=== PATIENT | female | born 1985 | race Caucasian/White ===

== ENCOUNTER 2020-08-02 15:33 | Outpatient (CLI) | payer SELFPAY ==
[2020-08-02 15:47] VITALS: BMI 34.0
[2020-08-02 16:00] VITALS: BP 137/97; BP 141/96; PULSE 97; RESP 18; TEMP 36.7; O2SAT 98
[2020-08-02 16:15] VITALS: BP 133/93
[2020-08-02 16:30] VITALS: BP 127/91
[2020-08-02 16:45] VITALS: BP 125/83
[2020-08-02 17:00] VITALS: BP 138/88
[2020-08-02 17:23] LABS: Appearance,Urine CLEAR (Clear); Bilirubin,Urine Negative (Negative); Blood, Urine TRACE-I (Negative); Color,Urine YELLOW (Yellow); Glucose,Urine (UA) Negative (Negative); Ketones,Urine Negative (Negative); Leukocyte Esterase,Urine TRACE (Negative); Microscopic, Urine URINE MICROSCOPIC (MICROSCOPIC); Nitrate,Urine Negative (Negative); PH,Urine 6.5 (5.0-8.5); Protein,Urine Negative (Negative); Urobilinogen,Urine 0.2 EU/dl (0.2)
[2020-08-02 17:34] LABS: WBC,Urine Occasional #/hpf (0-3)
[2020-08-02 17:39] LABS: Barbiturates Screen,Urine Negative ng/ml (<200); Benzodiazepines Screen,Urine Negative ng/ml (<200)
[2020-08-02 17:40] LABS: Amphetamine/Metha Screen,Urine Negative ng/ml (<1000)
[2020-08-02 17:41] LABS: Cannabinoid Screen,Urine Negative ng/ml (<50); Cocaine Screen,Urine Negative ng/ml (<300)
[2020-08-02 17:42] LABS: Methadone Screen,Urine Negative ng/ml (<300)
[2020-08-02 17:43] LABS: Opiate Screen,Urine Negative ng/ml (<300); Phencyclidine Screen,Urine Negative ng/ml (<25)
--- NOTE | 2020-08-02 17:49 | PC.NURSE ---
Lab personnel at to draw blood for PIH labs.
[2020-08-02 17:50] VITALS: BMI 34.0
[2020-08-02 18:06] LABS: Basophils % 0.3 % (0.1-2.0); Eosinophils # 0.1 K/mm3 (0.0-0.4); Eosinophils % 0.8 % (0.1-12.0); Hematocrit 36.9 % (37.0-47.0); Hemoglobin 12.7 g/dL (12.2-16.2); Lymphocytes # 2.7 K/mm3 (0.7-4.5); Lymphocytes % 28.9 % (10-50); Mean Corpuscular HGB Conc 34.3 g/dL (31.8-35.4); Mean Corpuscular Hemoglobin 28.2 pg (27.0-31.2); Mean Corpuscular Volume 82.1 fl (81-99); Mean Platelet Volume 9.9 fl (7.4-10.4); Monocytes # 0.4 K/mm3 (0.1-1.0); Monocytes % 4.3 % (1.7-9.3); Neutrophils # 6.1 K/mm3 (1.8-7.8); Neutrophils % 65.8 % (37.0-80.0); Platelet Count 207 K/mm3 (142-424); Red Cell Distribution Width 16.2 % (11.5-17.5); White Blood Count 9.3 K/mm3 (4.8-10.8)
[2020-08-02 18:28] LABS: D-Dimer 1.58 ug/mL (0.0-0.5); INR 0.83 (0.9-1.1); Prothrombin Time 9.9 seconds (10.1-12.5)
[2020-08-02 18:29] LABS: Activated Partial Thrombo Time 23.9 seconds (22.8-30.6); Fibrinogen 454 mg/dL (229.9-363.5)
[2020-08-02 18:30] LABS: Potassium 3.1 mmoL/L (3.5-5.1); Sodium 135 mmol/L (136-145)
[2020-08-02 18:31] LABS: Anion Gap 13.1 mEq/L (5-15); Blood Urea Nitrogen 9 mg/dl (7-17); Calcium 9.4 mg/dl (8.4-10.2); Carbon Dioxide 20 mmol/L (22.0-30.0); Chloride 105 mmol/L (98-107); Creatinine Clearance Estimated 252 mL/min (50-200); Estimated Glomerular Filt Rate 140 ml/min (>60); GFR (African American) 170 ML/MIN (>60); Glucose 83 mg/dl (74-100); Uric Acid 8.5 mg/dl (2.5-6.2)
[2020-08-02 18:32] LABS: Alanine Aminotransferase 17 U/L (12-78); Aspartate Amino Transferase 32 U/L (14-36)
== END 2020-08-02 19:30 | disposition home or self-care (01) ==
LOC: OBOUT 15:37 → OB 15:39
PROVIDERS: PCP Nurse Practitioner Family; Visit Provider Obstetrics & Gynecology
DX: O13.3 Gestational [pregnancy-induced] hypertension without significant proteinuria, third trimester (principal); Z3A.39 39 weeks gestation of pregnancy
CPT/HCPCS: 36415; 59025; 80048; 80305; 81001; 84450; 84460; 84550; 85025; 85378; 85384; 85610; 85730; G0463

== ENCOUNTER 2020-08-06 04:44 | Inpatient (IN) | payer SELFPAY ==
[2020-08-06 04:58] VITALS: BMI 33.4
[2020-08-06 05:12] VITALS: BP 119/82; PULSE 99; RESP 18; TEMP 36.7; O2SAT 97; BMI 33.4
[2020-08-06 06:10] LABS: Microscopic, Urine URINE MICROSCOPIC (MICROSCOPIC)
[2020-08-06 06:31] LABS: Basophils % 0.2 % (0.1-2.0); Eosinophils % 0.6 % (0.1-12.0); Hematocrit 33.8 % (37.0-47.0); Hemoglobin 11.7 g/dL (12.2-16.2); Lymphocytes # 2.5 K/mm3 (0.7-4.5); Lymphocytes % 35.9 % (10-50); Mean Corpuscular HGB Conc 34.6 g/dL (31.8-35.4); Mean Corpuscular Hemoglobin 28.2 pg (27.0-31.2); Mean Corpuscular Volume 81.7 fl (81-99); Mean Platelet Volume 9.9 fl (7.4-10.4); Monocytes # 0.4 K/mm3 (0.1-1.0); Monocytes % 5.6 % (1.7-9.3); Neutrophils # 4.1 K/mm3 (1.8-7.8); Neutrophils % 57.7 % (37.0-80.0); Platelet Count 186 K/mm3 (142-424); Red Blood Count 4.13 M/mm3 (4.20-5.40); Red Cell Distribution Width 16.4 % (11.5-17.5); White Blood Count 7.1 K/mm3 (4.8-10.8)
[2020-08-06 06:43] LABS: Appearance,Urine CLEAR (Clear); Bilirubin,Urine Negative (Negative); Blood, Urine TRACE-I (Negative); Color,Urine YELLOW (Yellow); Glucose,Urine (UA) Negative (Negative); Ketones,Urine Negative (Negative); Leukocyte Esterase,Urine 1+ (Negative); Nitrate,Urine Negative (Negative); PH,Urine 6.5 (5.0-8.5); Protein,Urine Negative (Negative); Urobilinogen,Urine 0.2 EU/dl (0.2)
[2020-08-06 07:14] LABS: Bacteria,Urine 1+ /lpf
--- NOTE | 2020-08-06 08:21 | HMH.PHAINT ---
MEDICATION RECONCILIATION COMPLETED ON PATIENT USING EXTERNAL FILL HISTORY FROM PHARMACY. -MIL VICTOR, PILID
[2020-08-06 08:35] LABS: Benzodiazepines Screen,Urine Negative ng/ml (<200)
[2020-08-06 08:36] LABS: Amphetamine/Metha Screen,Urine Negative ng/ml (<1000); Barbiturates Screen,Urine Negative ng/ml (<200)
[2020-08-06 08:37] LABS: Cannabinoid Screen,Urine Negative ng/ml (<50)
[2020-08-06 08:39] LABS: Opiate Screen,Urine Negative ng/ml (<300)
[2020-08-06 08:40] LABS: Phencyclidine Screen,Urine Negative ng/ml (<25)
[2020-08-06 08:47] LABS: Cocaine Screen,Urine Negative ng/ml (<300)
[2020-08-06 08:48] LABS: Methadone Screen,Urine Negative ng/ml (<300)
--- NOTE | 2020-08-06 10:10 | HMH.OBAPHP ---
OB - H&P: HPI Antepartum - History of Present Illness Chief complaint: Term , gestational hypertension History of present illness: She is a 35-year-old 15 para 8 aborta 6 [employer] lady who is 40 weeks and 1 day gestational age. She was seen in my office and had increased blood pressure. She has had a history of blood pressure and pregnancies in the past. Since she is term we elected to induce her labor. - History of Present Criteria for establishing EDC:: based on LMP only care: good care Ultrasounds: none Obstetrical complications: gestational hypertension Medical complications: none - Labs Blood type: A (+) positive Rubella: unknown RPR/VDRL: unknown GBS status: unknown HBsAG: unknown [facility] History I have reviewed the patient's past medical history: Yes Medical History: Reports:: Kidney Stones *Have you ever received a pneumonia vaccine?: No *Have you received a flu vaccine this season?: No Other Surgeries: Yes: No Previous Surgery. No: - *Social History Smoking Status: Never smoker Alcohol Intake: never *Occupational Status:: unemployed *Travel in the last 8 weeks: None Family Hx:: Diabetes HUMAN SERVICE COORDINATOR history: Spontaneous Para: 8 Review of Systems - Review of Systems Review of systems:: pertinent systems reviewed and negative unless documented below Meds Home Medications Medication Instructions Recorded Confirmed Type magnesium gluconate 27 mg 27 mg PO BID 08/04/20 08/06/20 History magnesium (500 mg) tablet prenat.vits,zuleima,uep-yfer-ohudj 1 tab PO DAILY 08/04/20 08/06/20 History Ergocalciferol (Vitamin D2) 50,000 unit PO WEEKLY 08/06/20 08/06/20 History [Vitamin D2] Potassium Chloride [Micro-K 10mEq 10 meq PO DAILY 08/06/20 08/06/20 History cap] hydroCHLOROthiazide [HCTZ 25mg 25 mg PO DAILY 08/06/20 08/06/20 History tab] Allergies Allergy/AdvReac Type Severity Reaction Status Date / Time No Known Allergies Allergy Verified 08/04/20 14:43 OB - H&P: Exam - Physical Exam Vital signs: Temp Pulse Resp BP Pulse Ox 98.1 F 99 H 18 119/82 97 08/06/20 05:12 08/06/20 05:12 08/06/20 05:12 08/06/20 05:12 08/06/20 05:12 - Constitutional no acute distress - Routine HEENT Exam Head: Present: normocephalic Eye: Present: EOMI, PERRL ENT: Present: mucous membranes moist - Routine Neck Exam Present: supple, full ROM - Routine Respiratory Exam Absent: accessory muscle use (good air entry bilaterally), respiratory distress, wheezes, crackles - Routine Cardiovascular Exam Present: RRR. Absent: murmur - Routine Abdominal Exam Present: soft, normoactive bowel sounds. Absent: tenderness, distended, guarding - Routine Rectal Exam Patient deferred: visual exam, digital exam - Routine Exam Patient deferred: external exam, groin exam, perineal exam - Routine Extremities Exam Present: full ROM. Absent: cyanosis, edema - Routine Skin Exam Present: intact. Absent: cyanosis - Routine Neurological Exam Present: alert, oriented X3 - Routine Psychiatric Exam Present: normal affect OB - Results - Labs Labs: Short CBC 08/06/20 Range/Units 05:40 WBC 7.1 (4.8-10.8) K/mm3 Hgb 11.7 L (12.2-16.2) g/dL Hct 33.8 L (37.0-47.0) % Plt Count 186 (142-424) K/mm3 Urine 08/06/20 Range/Units 05:40 Urine Color Yellow (Yellow) Urine Appearance Clear (Clear) Urine pH 6.5 (5.0-8.5) Ur Specific [place] 1.010 (1.005-1.030) Urine Protein Negative (Negative) Urine Glucose (UA) Negative (Negative) OB - A/P Antepartum (1) Grand multiparity Status: Acute (2) Gestational hypertension Status: Acute (3) Advanced maternal age (AMA) in Status: Acute - Additional Plan Planning to breastfeed?: Yes Plan: induction Additional Information:: She is currently 40 weeks and 1 day and is admitted for slightly increased b
--- NOTE | 2020-08-06 10:13 | HMH.LABNOT ---
Labor Note - Subjective: Date: 08/06/20 Time: 10:13 irregular contractions - Objective: NST:: Reactive Contractions:: every 4-5 minutes Cervical Dilation:: 3-4 Effacement:: 50% Station: -2 Membranes: artificially ruptured - Fetus: Monitoring?: Yes monitoring type:: Internal and External Comment:: I inserted an IUPC - Assessment: Labor progressing?: Yes Cephalopelvic disproportion?: No Patient Problems: All Active Problems Grand multiparity (Acute) Gestational hypertension (Acute) Advanced maternal age (AMA) in (Acute) (Acute) - Plan: Anesthesia for epidural?: No Continue to labor down?: Yes Plan for ?: No Continue to monitor?: Yes Start pushing?: No
--- NOTE | 2020-08-06 11:47 | HMH.LABNOT ---
Labor Note - Subjective: Date: 08/06/20 Time: 11:47 regular contraction - Objective: NST:: Reactive Contractions:: every 2-3 minutes Cervical Dilation:: 4 Effacement:: 75% Station: -2 Membranes: artificially ruptured - Fetus: Monitoring?: Yes monitoring type:: External - Assessment: Labor progressing?: Yes Cephalopelvic disproportion?: No Patient Problems: All Active Problems Grand multiparity (Acute) Gestational hypertension (Acute) Advanced maternal age (AMA) in (Acute) (Acute) - Plan: Anesthesia for epidural?: No Continue to labor down?: Yes Plan for ?: No Continue to monitor?: Yes Start pushing?: No
--- NOTE | 2020-08-06 14:45 | P.PCN_ITS ---
- Delivery Note Delivery Date:: 08/06/20 Delivery Time:: 14:31 Anesthesia Type: None Was labor medically induced?: Yes Induction method: per pitocin protocol Gestational age (weeks): 40 Infant delivered prior to 39 weeks?: No Justification for early elective delivery:: Benign Hypertension Infant Gender: Male at 1 minute: 7 at 5 minutes: 9 Delivery Procedure:: She is a 35-year-old 15 para 8 aborta 6 who was 40 and 1 weeks gestational age. She was seen in my office and her blood pressure slightly elevated. She has been seeing a manager integrated throughout the . She wants to deliver in the hospital. She has had 8 previous vaginal deliveries. She was started on IV oxytocin had her membranes ruptured. She progressed to full dilation and delivered spontaneously a liveborn male child at 2:31 PM in the afternoon of August 06, 2020. On deliver the head there was a loose nuchal cord which was easily reduced. This was followed by the anterior shoulder and the rest the 's body atraumatically. We allowed the cord to continue to pulsate for approximately 1 minute. The cord is then doubly clamped and cut and the infant was placed on the mother's abdomen for further care. The nurses assigned Apgars of 7 at 1 minute and 9 at 5 minutes. She received IV oxytocin and using gentle traction on the cord and countertraction on the fundus I was able to easily deliver the placenta intact. Had a normal three-vessel cord. There were no perineal or vaginal lacerations. She has a positive blood, she is rubella unknown group B strep unknown and hep B unknown. She plans to breast-feed. Her mental health therapist is Dr. Duffy. Estimated blood loss was approximately 300 cc. Placental Delivery Description: Spontaneous
--- NOTE | 2020-08-06 14:45 | HMH.LABNOT ---
Labor Note - Subjective: Date: 08/06/20 Time: 13:55 regular contraction - Objective: NST:: Reactive Contractions:: every 2-3 minutes Cervical Dilation:: 8-9 Effacement:: 100% Station: 0 Membranes: artificially ruptured - Fetus: Monitoring?: Yes monitoring type:: External - Assessment: Labor progressing?: Yes Cephalopelvic disproportion?: No Patient Problems: All Active Problems Grand multiparity (Acute) Gestational hypertension (Acute) Advanced maternal age (AMA) in (Acute) (Acute) - Plan: Anesthesia for epidural?: No Continue to labor down?: Yes Plan for ?: No Continue to monitor?: Yes Start pushing?: No
--- NOTE | 2020-08-06 17:41 | HMH.OBDCSM ---
General - General Admission date:: 08/06/20 Discharge date: 08/06/20 HPI - History of Present Illness History of present illness: She is a 35-year-old 15 now para 9 aborta 6 who was 40 weeks gestational age. We brought her in at term for induction of labor. Her blood pressure was slightly elevated. Hospital Course Hospital Course: On August 06, 2020 she was started on IV oxytocin and had her membranes ruptured. She progressed to full dilation and delivered spontaneously a liveborn male child at 2:31 PM in the afternoon of August 06, 2020. The baby weighed 9 pounds 12 ounces and had Apgars of 7 at 1 minute and 9 at 5 minutes. There were no perineal or vaginal lacerations. She has done well and is discharged home 6 hours after her delivery. She has a Rh+ blood, her rubella status, group B strep status and rubella status are unknown. Her lochia is normal. She is breast-feeding. Her qa automation engineer is Dr. Duffy. Rhogam Administration: Not Indicated Objective Vital signs: Temp Pulse Resp BP Pulse Ox 98.1 F 99 H 18 119/82 97 08/06/20 05:12 08/06/20 05:12 08/06/20 05:12 08/06/20 05:12 08/06/20 05:12 no acute distress - *Routine HEENT Exam Head: Present: normocephalic Eye: Present: EOMI, PERRL ENT: Present: mucous membranes moist Results Labs on day of discharge: Labs from last 24 hours 08/06/20 08/06/20 08/06/20 05:40 05:40 05:40 WBC RBC Hgb Hct MCV MCH MCHC RDW Plt Count MPV Neut % (Auto) Lymph % (Auto) [place] % (Auto) Eos % (Auto) Baso % (Auto) Neut # (Auto) Lymph # (Auto) [place] # (Auto) Eos # (Auto) Baso # (Auto) Urine Color Yellow Urine Appearance Clear Urine pH 6.5 Ur Specific [place] 1.010 Urine Protein Negative Urine Glucose (UA) Negative Urine Ketones Negative Urine Blood Trace-i Urine Nitrate Negative Urine Bilirubin Negative Urine Urobilinogen 0.2 Ur Leukocyte Esterase 1+ A Urine RBC 3-5 Urine WBC 5-10 Ur Squamous Epith Cells 3-5 Urine Bacteria 1+ Urine Opiates Screen Negative Urine Methadone Screen Negative Ur Barbituates Screen Negative Ur Phencyclidine Scrn Negative Ur Amphetamines Screen Negative U Benzodiazepines Scrn Negative Urine Cocaine Screen Negative U Marijuana (THC) Screen Negative Blood Type A Positive Antibody Screen Negative 08/06/20 05:40 WBC 7.1 RBC 4.13 L Hgb 11.7 L Hct 33.8 L MCV 81.7 MCH 28.2 MCHC 34.6 RDW 16.4 Plt Count 186 MPV 9.9 Neut % (Auto) 57.7 Lymph % (Auto) 35.9 [place] % (Auto) 5.6 Eos % (Auto) 0.6 Baso % (Auto) 0.2 Neut # (Auto) 4.1 Lymph # (Auto) 2.5 [place] # (Auto) 0.4 Eos # (Auto) 0.0 Baso # (Auto) 0.0 Urine Color Urine Appearance Urine pH Ur Specific [place] Urine Protein Urine Glucose (UA) Urine Ketones Urine Blood Urine Nitrate Urine Bilirubin Urine Urobilinogen Ur Leukocyte Esterase Urine RBC Urine WBC Ur Squamous Epith Cells Urine Bacteria Urine Opiates Screen Urine Methadone Screen Ur Barbituates Screen Ur Phencyclidine Scrn Ur Amphetamines Screen U Benzodiazepines Scrn Urine Cocaine Screen U Marijuana (THC) Screen Blood Type Antibody Screen DS: Diagnosis - Discharge Diagnosis (1) Grand multiparity Status: Acute (2) Gestational hypertension Status: Acute (3) Advanced maternal age (AMA) in Status: Acute (4) Normal delivery Status: Acute Discharge Plan - Patient Discharge Instructions ACTIVITY: No heavy lifting DIET: continue same diet - Follow up Plan Disposition: Home, Self-Care Condition at discharge:: Stable Home Medications: Home Medications Medication Instructions Recorded Confirmed Type magnesium gluconate 27 mg 27 mg PO BID 08/04/20 08/06/20 History magnesium (500 mg) tablet prenat.vits,zuleima,mqv-xxfl-cfggi 1 tab PO DAILY
[2020-08-06 20:18] VITALS: BP 134/79; PULSE 71; RESP 18; TEMP 36.6; O2SAT 99
== END 2020-08-06 20:48 | disposition home or self-care (01) | DRG 807 ==
PROVIDERS: Admitting Provider Nurse Practitioner Obstetrics & Gynecology; PCP Nurse Practitioner Family; Visit Provider Nurse Practitioner Obstetrics & Gynecology
DX: O13.3 Gestational [pregnancy-induced] hypertension without significant proteinuria, third trimester (principal); Z37.0 Single live birth; Z3A.40 40 weeks gestation of pregnancy; O69.81X0 Labor and delivery complicated by cord around neck, without compression, not applicable or unspecified
CPT/HCPCS: 59409; 59025; 80305; 81001; 85025; 86850; 87086; C1758; U0003

== ENCOUNTER → 2021-11-30 16:56 | Outpatient (CLI) | payer SELFPAY | PROVIDERS: Visit Provider Nurse Practitioner Obstetrics & Gynecology | DX: Z34.90 Encounter for supervision of normal pregnancy, unspecified, unspecified trimester (principal) | CPT/HCPCS: 86403 ==

== ENCOUNTER 2021-12-07 01:30 | Inpatient (IN) | payer SELFPAY ==
[2021-12-07] VITALS (11 sets, daily range): BP systolic 118–127; BP diastolic 62–83; PULSE 65–88; RESP 18–19; TEMP 36.4–36.8; O2SAT 97–100; BMI 35.4; BMI 40.4
[2021-12-07 01:52] LABS: Basophils % 0.6 % (0.1-2.0); Eosinophils # 0.1 K/mm3 (0.0-0.4); Hematocrit 34.2 % (37.0-47.0); Hemoglobin 11.7 g/dL (12.2-16.2); Lymphocytes # 1.9 K/mm3 (0.7-4.5); Lymphocytes % 26.3 % (10-50); Mean Corpuscular HGB Conc 34.2 g/dL (31.8-35.4); Mean Corpuscular Hemoglobin 30.5 pg (27.0-31.2); Mean Corpuscular Volume 89.2 fl (81-99); Mean Platelet Volume 10.3 fl (7.4-10.4); Monocytes # 0.4 K/mm3 (0.1-1.0); Neutrophils # 4.8 K/mm3 (1.8-7.8); Neutrophils % 67.1 % (37.0-80.0); Platelet Count 211 K/mm3 (142-424); Red Blood Count 3.83 M/mm3 (4.20-5.40); Red Cell Distribution Width 16.3 % (11.5-17.5); White Blood Count 7.2 K/mm3 (4.8-10.8)
--- NOTE | 2021-12-07 01:58 | EXP.OB.APHP ---
OB - H&P: HPI Antepartum History of Present Illness Chief complaint: Leakage of fluid, and regular painful contractions History of present illness: Mrs Nicole Patel is a 36 yo at 38w2d, by LMP, with EDC 12/19/21, who presents to [facility] for leakage of fluid that woke her from sleep at midnight followed by regular, painful uterine contractions. She reports good movement. Upon arrival, cervical exam was 8/100/0 and she was grossly ruptured. History of Present Criteria for establishing EDC:: based on LMP only care: limited care Obstetrical complications: none Labs Blood type: A (+) positive Rubella: Refused RPR/VDRL: Refused GBS status: negative HBsAG: Refused [facility] Medical History (Updated 12/07/21 @ 02:29 by Madhuri Wall DO) Active labor SROM (spontaneous rupture of membranes) Social History Smoking Status: Never smoker alcohol intake: never substance use type: denies use current occupational status: unemployed Travel in the last 8 weeks: None Review of Systems Review of Systems Review of systems:: pertinent systems reviewed and negative unless documented below Meds Home Medications and Allergies Home Medications Medication Instructions Recorded Confirmed Type prenat.vits,zuleima,nlo-ijpw-nurqb 1 tab PO DAILY Supplement 08/04/20 11/30/21 History potassium chloride 10 mEq 10 meq PO DAILY Supplement 08/06/20 11/30/21 History capsule,extended release hydrochlorothiazide 25 mg tablet 25 mg PO 07/21/21 11/30/21 History magnesium 500 mg tablet 15 mg PO DAILY 10/19/21 11/30/21 History New Prescriptions to Start Prescriptions: Allergies Allergy/AdvReac Type Severity Reaction Status Date / Time No Known Allergies Allergy Verified 11/30/21 16:14 OB - H&P: Exam Constitutional mild distress and cooperative Routine HEENT Exam Head: Present normocephalic Eye: Absent conjunctivae pink ENT: Present mucous membranes moist Routine Neck Exam Present full ROM Routine Respiratory Exam Present CTA bilaterally and normal respiratory effort Routine Cardiovascular Exam Present RRR Routine Abdominal Exam Present soft (Gravid); Absent tenderness Routine Exam External: Present normal urethra appearance; Absent lesions, vulvar erythema or vulvar tenderness Routine Extremities Exam Present full ROM; Absent edema or calf tenderness Routine Neurological Exam Present alert and oriented X3 Routine Psychiatric Exam Present normal affect and cooperative OB - Results Labs Labs: Short CBC 12/07/21 Range/Units 01:35 WBC 7.2 (4.8-10.8) K/mm3 Hgb 11.7 L (12.2-16.2) g/dL Hct 34.2 L (37.0-47.0) % Plt Count 211 (142-424) K/mm3 OB - A/P Antepartum (1) : Status: Acute (2) Grand multiparity: Status: Acute (3) Gestational hypertension: Status: Acute (4) Advanced maternal age (AMA) in : Status: Acute (5) SROM (spontaneous rupture of membranes): Status: Acute (6) Active labor: Status: Acute Additional Plan Planning to breastfeed?: Yes Plan: expectant management Additional Information:: Admit to L&D for SROM and active labor GBS negative Close monitoring Anticipate vaginal delivery
--- NOTE | 2021-12-07 02:57 | EXP.DN ---
Delivery Note Delivery Date:: 12/07/21 Delivery Time:: 02:44 Anesthesia Type: None Was labor medically induced?: No Gestational age (weeks): 38 Infant delivered prior to 39 weeks?: Yes Justification for early elective delivery:: Active Labor Gender: Male at 1 minute: 8 at 5 minutes: 8 Delivery Procedure:: Mom complete without epidural. Pushed for approximately 4 minutes. Head delivered spontaneously over intact perineum in CHAVO position. Loose nuchal cord x 1 delivered through. Anterior shoulder delivered spontaneously. Posterior shoulder and remainder of body delivered spontaneously. Baby placed on maternal abdomen, mouth and nares bulb suctioned, warmed/dried and stimulated. Delayed cord clamping was performed for 60 seconds. Cord was clamped and cut by father of baby. Cord blood was obtained. Placenta delivered spontaneously and intact. No lacerations. Mom and baby were skin to skin and doing well after delivery. Live male baby APGARs 8, 8 EBL 200 Placental Delivery Description: Spontaneous
--- NOTE | 2021-12-07 03:01 | EXP.DC.SUM ---
General Admission date:: 12/07/21 Discharge date: 12/07/21 HPI HPI HPI: Mrs Nicole Patel is a 36 yo Sikh at 38w2d, by LMP, with EDC 12/19/21, who presents to [facility] for leakage of fluid that woke her from sleep at midnight followed by regular, painful uterine contractions. She reports good movement. Upon arrival, cervical exam was 8/100/0 and she was grossly ruptured. Hospital Course Hospital Course Hospital Course: Patient presented to [facility] L&D for leakage of fluid and regular, painful contractions at 38w2d. GBS negative. Leakage of fluid woke her from sleep at midnight. Regular, painful uterine contractions started after leakage of fluid. Upon arrival to L&D, cervix was 8/100/0. She was grossly ruptured. Patient had a normal spontaneous vaginal delivery at 0244 on 12/07/21. She delivered a boy. APGARs 8, 8. EBL 200 cc. Mom and baby were doing well after delivery. Vital signs stable, afebrile. Patient is Sikh and requests to be discharged to home. Exam Data for Last 24 hours Vital signs and Labs for Last 24 Hours: Laboratory Results - last 24 hr 12/07/21 01:35: WBC 7.2, RBC 3.83 L, Hgb 11.7 L, Hct 34.2 L, MCV 89.2, MCH 30.5, MCHC 34.2, RDW 16.3, Plt Count 211, MPV 10.3, Neut % (Auto) 67.1, Lymph % (Auto) 26.3, [place] % (Auto) 5.0, Eos % (Auto) 1.0, Baso % (Auto) 0.6, Neut # (Auto) 4.8, Lymph # (Auto) 1.9, [place] # (Auto) 0.4, Eos # (Auto) 0.1, Baso # (Auto) 0.0 12/07/21 01:35: Blood Type A Positive, Antibody Screen Negative I & O for Last 24 hours: Intake & Output 12/04/21 12/05/21 12/06/21 12/07/21 23:59 23:59 23:59 23:59 Weight 266 lb Constitutional Constitutional: no acute distress *Routine HEENT Exam Head: Present normocephalic Eye: Absent conjunctivae pink ENT: Present mucous membranes moist *Routine Neck Exam Neck: Present full ROM *Routine Respiratory Exam Respiratory: Present CTA bilaterally and normal respiratory effort *Routine Cardiovascular Exam Cardiovascular: Present RRR *Routine Abdominal Exam Abdominal: Present soft; Absent tenderness or distended Comments: Uterine fundus firm and below umbilicus *Routine Extremities Exam Extremities: Present full ROM; Absent edema or calf tenderness *Routine Neurological Exam Neurological: Present alert and oriented X3 Routine Psychiatric Exam Psychiatric: Present normal affect and cooperative Results Data Completed and Pending Labs on day of discharge: Labs from last 24 hours 12/07/21 12/07/21 01:35 01:35 WBC 7.2 RBC 3.83 L Hgb 11.7 L Hct 34.2 L MCV 89.2 MCH 30.5 MCHC 34.2 RDW 16.3 Plt Count 211 MPV 10.3 Neut % (Auto) 67.1 Lymph % (Auto) 26.3 [place] % (Auto) 5.0 Eos % (Auto) 1.0 Baso % (Auto) 0.6 Neut # (Auto) 4.8 Lymph # (Auto) 1.9 [place] # (Auto) 0.4 Eos # (Auto) 0.1 Baso # (Auto) 0.0 Blood Type A Positive Antibody Screen Negative DS: Diagnosis Discharge Diagnosis (1) : Status: Acute (2) Grand multiparity: Status: Acute (3) Gestational hypertension: Status: Acute (4) Advanced maternal age (AMA) in : Status: Acute (5) SROM (spontaneous rupture of membranes): Status: Acute (6) Active labor: Status: Acute (7) Sikh ancestry: Status: Acute Meds Home Medications and Allergies Home Medications Medication Instructions Recorded Confirmed Type prenat.vits,zuleima,dko-hexv-wzths 1 tab PO DAILY Supplement 08/04/20 11/30/21 History potassium chloride 10 mEq 10 meq PO DAILY Supplement 08/06/20 11/30/21 History capsule,extended release hydrochlorothiazide 25 mg tablet 25 mg PO 07/21/21 11/30/21 History magnesium 500 mg tablet 15 mg PO DAILY 10/19/21 11/30/21 History New Prescriptions to Start Prescriptions: Allergies Allergy/AdvReac Type Severity Reaction Status Date / Time No Known Allergies Allergy Verified 11/30/21 16:14 Discharge Plan Disposition Patient Disposition: Home,
[2021-12-07 05:31] LABS: Hematocrit 30.3 % (37.0-47.0)
[2021-12-07 05:34] LABS: Hemoglobin 10.1 g/dL (12.2-16.2)
[2021-12-07 09:03] LABS: Basophils % 0.2 % (0.1-2.0); Eosinophils # 0.2 K/mm3 (0.0-0.4); Eosinophils % 1.9 % (0.1-12.0); Hematocrit 28.9 % (37.0-47.0); Lymphocytes # 1.7 K/mm3 (0.7-4.5); Lymphocytes % 13.7 % (10-50); Mean Corpuscular HGB Conc 34.8 g/dL (31.8-35.4); Mean Corpuscular Hemoglobin 30.8 pg (27.0-31.2); Mean Corpuscular Volume 88.6 fl (81-99); Mean Platelet Volume 10.8 fl (7.4-10.4); Monocytes # 0.4 K/mm3 (0.1-1.0); Monocytes % 3.4 % (1.7-9.3); Neutrophils # 10.2 K/mm3 (1.8-7.8); Neutrophils % 80.7 % (37.0-80.0); Platelet Count 158 K/mm3 (142-424); Red Blood Count 3.25 M/mm3 (4.20-5.40); Red Cell Distribution Width 16.6 % (11.5-17.5); White Blood Count 12.6 K/mm3 (4.8-10.8)
--- NOTE | 2021-12-07 10:00 | PC.NURSE ---
Per Dr. Wall no post-H/H required after transfusion of 1 unit of blood.
== END 2021-12-07 15:30 | disposition home or self-care (01) | DRG 807 ==
LOC: OBOUT 01:32 → OB 01:32
PROVIDERS: Admitting Provider Obstetrics & Gynecology; PCP Nurse Practitioner Family; Visit Provider Obstetrics & Gynecology
DX: O13.3 Gestational [pregnancy-induced] hypertension without significant proteinuria, third trimester (principal); Z37.0 Single live birth; O69.81X0 Labor and delivery complicated by cord around neck, without compression, not applicable or unspecified; Z3A.38 38 weeks gestation of pregnancy
CPT/HCPCS: 59409; 36415; 59025; 85014; 85018; 85025; 86850; 94761; G0283; P9016

== ENCOUNTER 2022-02-09 18:04 | Emergency (ER) | payer SELFPAY ==
[2022-02-09] VITALS (9 sets, daily range): BP systolic 109–151; BP diastolic 62–87; PULSE 91–102; RESP 14–18; TEMP 37.2–38.3; O2SAT 97–100; BMI 33.5
--- NOTE | 2022-02-09 18:33 | HMH.EDABDPAI ---
Discharge Plan Disposition Patient Disposition: Still a Patient Condition: Good Prescriptions Prescriptions: No Action prenat.vits,zuleima,vup-qayp-mxyra Tablet 1 tab PO DAILY hydrochlorothiazide 25 mg tablet 25 mg PO Label Comments: TAKE 1 TABLET 1 TIME EACH DAY polysaccharide iron complex [Poly-Iron] 150 mg iron capsule 150 mg PO DAILY Qty: 30 3RF Referrals Follow up/Referrals: Lisa Hill [Primary Care Provider] - See instructions Clinical Impressions Clinical Impression: Acute upper abdominal pain, Fever Instructions Patient Instructions: DI for Urinary Tract Infection (UTI), DI for Urinary Tract Infection in Children Discharge ED Provider: Mukesh Loera Abdominal Pain HPI General Chief Complaint: Urogenital-Female Stated Complaint: possible UTI Time Seen by Provider: 02/09/22 18:33 History of Present Illness HPI narrative: upper abd pain, fever, 2 days, on abx from pcp for uti, 2 months Onset (ago): day(s) Location: diffuse and epigastric Severity: moderate Quality: aching Radiation: none Relieving factors: nothing Exacerbating factors: nothing Associated symptoms: fever Related Data Home Medications Medication Instructions Recorded Confirmed prenat.vits,zuleima,ule-shdx-sirlb 1 tab PO DAILY Supplement 08/04/20 11/30/21 hydrochlorothiazide 25 mg tablet 25 mg PO 07/21/21 11/30/21 Previous Rx's Medication Instructions Recorded polysaccharide iron complex 150 mg 150 mg PO DAILY #30 caps 12/08/21 iron capsule (Poly-Iron) Allergies Allergy/AdvReac Type Severity Reaction Status Date / Time No Known Allergies Allergy Verified 11/30/21 16:14 [facility] Medical History Active labor [place] ancestry SROM (spontaneous rupture of membranes) Family History Other No significant family history Social History Smoking Status: Never smoker alcohol intake: never substance use type: denies use current occupational status: other Travel in the last 8 weeks: None adopted: No caregiver/support person: No foster care: No household members: spouse and children housing: house lives independently: Yes ROS Obtained: Yes All systems reviewed & no additional complaints except as documented Physical Exam General General appearance: alert and in no apparent distress Head Head exam: atraumatic and normocephalic Eye Eye exam: Present normal appearance, PERRL and EOMI ENT ENT exam: Present normal exam, normal oropharynx and mucous membranes moist Neck Neck exam: Present normal inspection, full ROM and trachea midline Chest Chest inspection: Present normal inspection and symmetric chest wall rise Respiratory Respiratory exam: Present normal lung sounds bilaterally; Absent respiratory distress or wheezes Cardiovascular Cardiovascular exam: Present regular rate and normal rhythm; Absent bradycardia Abdominal Exam Abdominal exam: Present soft and tenderness; Absent distention or guarding Abdominal tenderness: Present epigastrium and mild Extremities Exam Extremities exam: Present normal inspection and full ROM; Absent tenderness Back Exam Back exam: Present normal inspection; Absent tenderness, CVA tenderness (R) or CVA tenderness (L) Neurological Exam Neurological exam: Present alert, oriented X3 and CN II-XII intact Psychiatric Psychiatric exam: Present normal affect and normal mood; Absent depressed Skin Skin exam: Present warm, intact and normal color Lymphatic Lymphatic Findings: no adenopathy Medical Decision Making Rafa Inquiry Pt receiving controlled substance: No Vital Signs: 02/09/22 18:32 02/09/22 18:30 02/09/22 19:00 Temperature 98.9 F Temperature Source Oral Pulse Rate 93 H 94 H Pulse Rate [Right] 100 H Respiratory Rate 14 18 18 Blood
[2022-02-09 18:45] LABS: Microscopic, Urine URINE MICROSCOPIC (MICROSCOPIC)
--- NOTE | 2022-02-09 18:46 | CT_ITS ---
PROCEDURE INFORMATION: Exam: CT Abdomen And Pelvis With Contrast Exam date and time: 02/09/2022 8:17 PM Age: 36 years old Clinical indication: Abdominal pain; Additional info: Upper abd pain TECHNIQUE: Imaging protocol: Computed tomography of the abdomen and pelvis with contrast. Radiation optimization: All CT scans at this facility use at least one of these dose optimization techniques: automated exposure control; mA and/or kV adjustment per patient size (includes targeted exams where dose is matched to clinical indication); or iterative reconstruction. Contrast material: ISOVUE; Contrast volume: 75 ml; Contrast route: IV; COMPARISON: No relevant prior studies available. FINDINGS: Lungs: Lung bases are unremarkable. Liver: There are at least 3 hemangiomas throughout the liver. A customer assistance representative lesion measures 5 cm in the left hepatic lobe. . Gallbladder and bile ducts: Cholelithiasis noted. No pericholecystic inflammatory change. No biliary ductal dilation Pancreas: No peripancreatic fluid stranding. No main pancreatic ductal dilation. Spleen: Normal. No splenomegaly. Adrenal glands: Normal. No mass. Kidneys and ureters: Punctate nonobstructive caliceal calculi. No hydroureteronephrosis on either side. No perinephric stranding. Stomach and bowel: Scattered colonic diverticula noted without inflammatory change. Appendix: A normal appendix is identified. Intraperitoneal space: Unremarkable. No free air. No significant fluid collection. Vasculature: Unremarkable. No abdominal aortic aneurysm. Lymph nodes: Unremarkable. No enlarged lymph nodes. Urinary bladder: Unremarkable as visualized. Reproductive: Minimal amount of air in the endometrial cavity is indeterminate. Correlate with recent instrumentation. Bones/joints: Unremarkable. No acute fracture. Soft tissues: Unremarkable. IMPRESSION: 1. Cholelithiasis without pericholecystic inflammatory change. 2. Nephrolithiasis without hydroureteronephrosis on either side. 3. At least 3 hepatic hemangiomas.
[2022-02-09 18:47] LABS: Appearance,Urine CLEAR (Clear); Bilirubin,Urine Negative (Negative); Blood, Urine 1+ (Negative); Color,Urine YELLOW (Yellow); Glucose,Urine (UA) Negative (Negative); Ketones,Urine Negative (Negative); Leukocyte Esterase,Urine TRACE (Negative); Nitrate,Urine Negative (Negative); Protein,Urine 1+ (Negative); Specific Gravity, Urine 1.015 (1.005-1.030); Urobilinogen,Urine 0.2 EU/dl (0.2)
[2022-02-09 18:50] LABS: Basophils # 0.1 K/mm3 (0-0.2); Basophils % 1.2 % (0.1-2.0); Chloride 100 mmol/L (98-107); Eosinophils # 0.1 K/mm3 (0.0-0.4); Hematocrit 31.6 % (37.0-47.0); Hemoglobin 10.3 g/dL (12.2-16.2); Lymphocytes # 1.6 K/mm3 (0.7-4.5); Lymphocytes % 21.5 % (10-50); Mean Corpuscular HGB Conc 32.6 g/dL (31.8-35.4); Mean Corpuscular Hemoglobin 27.9 pg (27.0-31.2); Mean Corpuscular Volume 85.5 fl (81-99); Monocytes # 0.5 K/mm3 (0.1-1.0); Monocytes % 5.9 % (1.7-9.3); Neutrophils # 5.4 K/mm3 (1.8-7.8); Neutrophils % 70.4 % (37.0-80.0); Platelet Count 294 K/mm3 (142-424); Potassium 3.3 mmoL/L (3.5-5.1); Red Blood Count 3.69 M/mm3 (4.20-5.40); Red Cell Distribution Width 15.2 % (11.5-17.5); Sodium 138 mmol/L (136-145); White Blood Count 7.7 K/mm3 (4.8-10.8)
[2022-02-09 18:51] LABS: Urine Pregnancy, HCG Qual. Negative (Negative)
[2022-02-09 18:53] LABS: Alanine Aminotransferase 35 U/L (12-78); Albumin Level 3.7 g/dl (3.5-5.0); Albumin/Globulin Ratio 1.1 (1.1-1.8); Alkaline Phosphatase 156 U/L (38-126); Anion Gap 16.3 mEq/L (5-15); Aspartate Amino Transferase 39 U/L (14-36); Bilirubin,Total 0.2 mg/dl (0.2-1.3); Blood Urea Nitrogen 17 mg/dl (7-17); Calcium 9.6 mg/dl (8.4-10.2); Carbon Dioxide 25 mmol/L (22.0-30.0); Creatinine Clearance Estimated 119 mL/min (50-200); Estimated Glomerular Filt Rate 63 ml/min (>60); GFR (African American) 76 ML/MIN (>60); Globulin 3.5 g/dL (1.3-3.2); Glucose 106 mg/dl (74-100); Total Protein,Serum 7.2 g/dl (6.3-8.2)
[2022-02-09 19:15] LABS: Bacteria,Urine 2+ /lpf
--- NOTE | 2022-02-09 19:34 | PC.NURSE ---
pt returned to room shivering, given blankets
--- NOTE | 2022-02-09 19:49 | XR_ITS ---
PROCEDURE INFORMATION: Exam: XR Chest Exam date and time: 02/09/2022 7:49 PM Age: 36 years old Clinical indication: Patient HX: UTI since December 09 per patient, fever. TECHNIQUE: Imaging protocol: Radiologic exam of the chest. Views: 2 views. COMPARISON: No relevant prior studies available. FINDINGS: Lungs: No evidence of pneumonia or interstitial edema. Pleural spaces: Unremarkable. No pleural effusion. No pneumothorax. Heart/Mediastinum: Unremarkable. No cardiomegaly. Bones/joints: Unremarkable. IMPRESSION: No evidence of pneumonia or interstitial edema.
[2022-02-09 20:19] LABS: Coronavirus 19, PCR Not Detected (NotDetected); Influenza A, PCR Not Detected (NotDetected); Influenza B, PCR Not Detected (NotDetected)
[2022-02-09 20:25] LABS: Lipase 127 U/L (23-300)
[2022-02-09 20:48] LABS: Lactic Acid 1.1 mmol/L (0.7-2.1)
--- NOTE | 2022-02-09 21:06 | HMH.EDUROGF ---
Discharge Plan Disposition Patient Disposition: Home, Self-Care Condition: Good Prescriptions Prescriptions: No Action prenat.vits,zuleima,[id number] Tablet 1 tab PO DAILY hydrochlorothiazide 25 mg tablet 25 mg PO Label Comments: TAKE 1 TABLET 1 TIME EACH DAY polysaccharide iron complex [Poly-Iron] 150 mg iron capsule 150 mg PO DAILY Qty: 30 3RF Referrals Follow up/Referrals: Lisa [facility] [Primary Care Provider] - See instructions Jose March MD [Staff Physician] - See instructions Clinical Impressions Clinical Impression: Acute upper abdominal pain, Fever, Cholelithiasis Instructions Patient Instructions: DI for Urinary Tract Infection (UTI), DI for Urinary Tract Infection in Children Discharge ED Provider: Mukesh Loera Female Urogenital HPI General Chief complaint: Urogenital-Female Stated complaint: possible UTI Time Seen by Provider: 02/09/22 18:33 Mode of Arrival: Ambulatory Limitations: No Limitations Description of Symptoms (Recalled from ER Triage Doc. by RN): PT advises that since she delivered her baby on December 07 she has been having UTI symptoms. Advises she has been seen multiple times and been on three different antibiotics. She has started having some abd pain and running fevers on and off. Denies any bleeding, nausea or vomiting History of Present Illness HPI Narrative: del on 12/07/21 and had dysuria and fever and seen by pcp and treated with keflex and then 2 weeks later omnicef and then yesterday given roch and ceftrin but came because of fever and upper abd pain w/o vomiting Severity: moderate Related Data Home Medications Medication Instructions Recorded Confirmed prenat.vits,zuleima,xmk-sycm-mfrnp 1 tab PO DAILY Supplement 08/04/20 11/30/21 hydrochlorothiazide 25 mg tablet 25 mg PO 07/21/21 11/30/21 Previous Rx's Medication Instructions Recorded polysaccharide iron complex 150 mg 150 mg PO DAILY #30 caps 12/08/21 iron capsule (Poly-Iron) Allergies Allergy/AdvReac Type Severity Reaction Status Date / Time No Known Allergies Allergy Verified 11/30/21 16:14 [facility] Medical History Active labor Aftab ancestry SROM (spontaneous rupture of membranes) Family History Other No significant family history Social History Smoking Status: Never smoker alcohol intake: never substance use type: denies use current occupational status: other Travel in the last 8 weeks: None adopted: No caregiver/support person: No foster care: No household members: spouse and children housing: house lives independently: Yes ROS Obtained: Yes All systems reviewed & no additional complaints except as documented Physical Exam General General appearance: alert and in no apparent distress Head Head exam: normocephalic Eye Eye exam: Present PERRL and EOMI ENT ENT exam: Present mucous membranes moist Neck Neck exam: Present trachea midline Respiratory Respiratory exam: Present normal lung sounds bilaterally; Absent respiratory distress Cardiovascular Cardiovascular exam: Present regular rate Abdominal Exam Abdominal exam: Present soft, tenderness and Krishna's sign Abdominal tenderness: Present RUQ and moderate Extremities Exam Extremities exam: Present full ROM; Absent calf tenderness Neurological Exam Neurological exam: Present alert and CN II-XII intact Skin Skin exam: Absent rash Medical Decision Making Medical Records Medical records reviewed: Yes I reviewed the patient's medical records. Rafa Inquiry Pt receiving controlled substance: No Vital Signs: 02/09/22 18:32 02/09/22 18:30 02/09/22 19:00 Temperature 98.9 F Temperature Source Oral Pulse Rate 93 H 94 H Pulse Rate [Right] 100 H Respiratory Rate 14 18 18 Blood Pressure 138/8
--- NOTE | 2022-02-09 21:53 | PC.NURSE ---
Dr. Leora at
--- NOTE | 2022-02-09 21:58 | PC.NURSE ---
spoke with patient in length about the importance of follow up. Patient states that she saw her pcp for her follow up care because Lisa Hill is closer to her than 's office. Additionally, advised that patient should follow up with general surgery due to her pain and gallstones.
--- NOTE | 2022-02-09 22:16 | PC.NURSE ---
Dr. Pederson speaking with Dr. March
== END 2022-02-09 22:23 | disposition home or self-care (01) ==
LOC: UTC 18:09 → ER 18:18
PROVIDERS: Emergency Medicine; Emergency Provider Emergency Medicine; PCP Nurse Practitioner Family
DX: N39.0 Urinary tract infection, site not specified (principal); Z20.822 Contact with and (suspected) exposure to COVID-19; Z79.899 Other long term (current) drug therapy
CPT/HCPCS: 71046; 74177; 80053; 81001; 81025; 83605; 83690; 85025; 87040; 87077; 87086; 87186; 96374; 96375; 99285; C9803; J2405; Q9967; U0003; U0005

== ENCOUNTER → 2022-11-24 14:41 | Outpatient (CLI) | payer SELFPAY ==
[2022-11-24 15:20] LABS: Basophils % 0.5 % (0.1-2.0); Eosinophils # 0.1 K/mm3 (0.0-0.4); Eosinophils % 1.6 % (0.1-12.0); Hematocrit 39.3 % (37.0-47.0); Hemoglobin 13.1 g/dL (12.2-16.2); Lymphocytes # 2.3 K/mm3 (0.7-4.5); Lymphocytes % 38.1 % (10-50); Mean Corpuscular HGB Conc 33.5 g/dL (31.8-35.4); Mean Corpuscular Hemoglobin 28.6 pg (27.0-31.2); Mean Corpuscular Volume 85.4 fl (81-99); Mean Platelet Volume 8.6 fl (7.4-10.4); Monocytes # 0.3 K/mm3 (0.1-1.0); Monocytes % 5.2 % (1.7-9.3); Neutrophils # 3.3 K/mm3 (1.8-7.8); Neutrophils % 54.7 % (37.0-80.0); Platelet Count 234 K/mm3 (142-424); Red Cell Distribution Width 14.2 % (11.5-17.5)
[2022-11-24 15:51] LABS: Alanine Aminotransferase 21 U/L (12-78); Albumin Level 4.6 g/dl (3.5-5.0); Albumin/Globulin Ratio 1.5 (1.1-1.8); Alkaline Phosphatase 37 U/L (38-126); Anion Gap 13.2 mEq/L (5-15); Aspartate Amino Transferase 25 U/L (14-36); Blood Urea Nitrogen 10 mg/dl (7-17); Carbon Dioxide 29 mmol/L (22.0-30.0); Chloride 102 mmol/L (98-107); Estimated Glomerular Filt Rate 112 ml/min (>60); GFR (African American) 136 ML/MIN (>60); Globulin 3.1 g/dL (1.3-3.2); Glucose 91 mg/dl (74-100); Potassium 4.2 mmoL/L (3.5-5.1); Sodium 140 mmol/L (136-145); Total Protein,Serum 7.7 g/dl (6.3-8.2)
[2022-11-24 16:38] LABS: Bilirubin,Total < 0.1 mg/dl (0.2-1.3)
== END ==
PROVIDERS: PCP Nurse Practitioner Family; Visit Provider Nurse Practitioner Obstetrics & Gynecology
DX: O02.0 Blighted ovum and nonhydatidiform mole (principal)
CPT/HCPCS: 36415; 80053; 85025; 86850

== ENCOUNTER 2022-11-25 09:07 | Day surgery (SDC) | payer SELFPAY ==
[2022-11-25] VITALS (16 sets, daily range): BP systolic 100–132; BP diastolic 51–77; PULSE 66–86; RESP 12–18; TEMP 36.4–36.9; O2SAT 94–99; BMI 35.7
--- NOTE | 2022-11-25 09:55 | P.PNANES_ITS ---
[facility] Disclaimer: The information contained in this section may have been updated after the patient was seen, as this information can be updated by other users. Medical History Aftab ancestry Edema Hypertension Kidney stone SROM (spontaneous rupture of membranes) Urinary tract infection Family History Other Colon cancer Diabetes Heart attack Hyperthyroidism No significant family history Social History Smoking Status: Never smoker alcohol intake: never substance use type: denies use current occupational status: other Travel in the last 8 weeks: Inside the [place] adopted: No caregiver/support person: No foster care: No household members: spouse and children housing: house lives independently: Yes [facility] Anesthesia Checklist Patient Identification Patient Identification: Arm Band and Verbal (Name & ) Structural Data Admitted From: Home Planned Operative Procedure/s: D & E Consent for Planned Operative Procedure(s) Verified: Yes NPO Status Verified Time NPO: 00:00 Chart Verification Results Verified: CBC Additional verifications Anesthesia Reactions: No Hx Blood Transfusions: Yes Blood Transfusion Reaction: No Airway Assessment Mallampati Score:: Class II C-Spine Mobility Assessed: Yes TMJ Mobility Assessed: Yes Dentition: Dentures-poor fitting Neurological Assessment Level of Consciousness: Awake Hx Seizures: No Numbness or tingling in extremities: No Anesthesia Plan Anesthesia Risk discussed: Yes Anesthesia Plan: Verified ASA Class: I Anesthesia Type: General
--- NOTE | 2022-11-25 10:57 | SUR.PREOP ---
Spoke to MD March regarding HCG results not being ready yet. states he is fine with bringing the patient back to the OR before finalization of results, that he only needs the results for the patients next office visit.
[2022-11-25 11:06] LABS: HCG,Quantitative 15722 mIU/ml (0-5.42)
--- NOTE | 2022-11-25 11:51 | EXP.ANES.I ---
[facility] Anesthesia Record Part I Anesthesia Record I Intake, IV Amount: 1,400 Hydration: Adequate Estimated blood loss (mL): 800 Urine output (mL): 0 Blood Pressure: 124/73 SaO2: 94 Pulse Rate: 77 Airway Patency: Patent Respiratory Rate: 12 Temperature: 97.5 F Patient is:: Awake and Stable Stable to PACU at:: 11:53
--- NOTE | 2022-11-25 11:54 | P.OP_ITS ---
Date of procedure: 11/25/22 Pre-op Diagnosis:: Missed , molar Post-op Diagnosis:: Missed , molar Procedure performed:: Dilation and evacuation with [place] suction and Surgeon:: Jose March MD LODGING FACILITIES MANAGER:: Ziyad Leung Anesthesia: LMA Estimated blood loss (mL): 790 Clinical Note:: She is a 37-year-old 17 para 10 who saw me yesterday with vaginal bleeding. She thought she was about 20 weeks along. Ultrasound showed that she had what appeared to be a molar with just placental tissue and no fetus seen. Operative findings:: She had an anteverted bulky uterus that easily sounded to 12 mm. There was moderate tissue recovered from the endometrium. Operative note:: She was taken the operating room where LMA anesthesia was found to be adequate. She was prepped and draped normal sterile fashion lithotomy position. Weighted speculum placed in the vagina and the anterior lip of the cervix was grasped with a tenaculum. Singh dilators used to easily dilate the cervix to 12 mm. Then using a 12 mm suction curette I evacuated the uterine contents. This was followed by a gentle curettage. She had quite a lot of bleeding and she received 1 dose of Methergine and I elected to put a [place] balloon in the uterine cavity to tamponade the bleeding. I filled it with 50 cc of saline. I then gave her 1000 mcg of Cytotec rectally. She tolerated procedure well and was taken to the recovery room in excellent condition. All sponge, instrument counts were correct. Calculated blood loss was 790 cc. Condition: stable Disposition: PACU Specimens:: Endometrial curettings Complications:: None
--- NOTE | 2022-11-25 12:06 | ECG_ITS ---
APPROVED REPORT Exam: Resting ECG HR:76 bpm ECG Measurements Heart Rate 76 AXES IL 166 P 60 QRSd 114 QRS 34 QT 406 T 2 QTc 436 Conclusion SINUS RHYTHM MODERATE INTRAVENTRICULAR CONDUCTION DELAY [110+ ms QRS DURATION] NONSPECIFIC T-WAVE ABNORMALITY BORDERLINE ECG UNCONFIRMED REPORT Electronically signed by : Jorge Alberto Modi MD 11/25/2022 16:38:41
--- NOTE | 2022-11-25 12:19 | SUR.PHASEI ---
1203 - When assessed pt stated that she was having shart chest pain rating 5/10. Denies being SOA. VSS. Pt resting in bed, tolerating room air. Anesthesia notified. Mateus Manning CRNA at bedside @ 1205 - EKG ordered and respiratory notified. 1209 - EKG obtained and reviewed by Mateus Manning CRNA. No new orders at this time. After pt was repositioned and sitting up pt does report some alleviation of pain. 1213 - Pain reassessed, reports 2/10. Continues to deny being SOA. VSS and being continuously monitored in PACU.
--- NOTE | 2022-11-25 12:24 | SUR.PHASEI ---
Per Dr. March pt is to only have clear liquids at this time until DC. Telephone order for H/H @ [address] March as well, order placed.
--- NOTE | 2022-11-25 13:31 | SUR.PHASEII ---
1310 - Dr. March called to check on pt. Updated MD at this time. No new orders.
[2022-11-25 15:16] LABS: Hematocrit 34.6 % (37.0-47.0); Hemoglobin 11.6 g/dL (12.2-16.2)
--- NOTE | 2022-11-25 15:23 | SUR.PHASEII ---
1445 - Chux and draw sheet weighed per QBL protocol and blood loss = 65 ml post op. Pt voided per bedpan, UOP = 400 ml, blood tinged urine w/ strong odor.
--- NOTE | 2022-11-25 16:20 | SUR.PHASEII ---
1600 - Dr. March at bedside. [place] removed by . Minimal bleeding noted. Chux and esteban pad changed. Pt denies pain. Resting in bed, no complaints voiced. Call horton w/in reach. 1619 - Dr. March called at this time to check on pt. Pt has a small amount of bleeding to esteban pad. VSS. Pt may have food at this time. Dietary called for tray for pt and her . Pt updated on POC. Dr. March states he will check back on pt and anticipates DC at 1700.
--- NOTE | 2022-11-25 16:56 | SUR.PHASEII ---
1650 - Pt assisted to bathroom by staff and . Pt tolerated ambulation w/ assistance. Pt was able to urinate w/o difficulty or pain. Blood noted in urine but no clots visible. Per pad changed and pt assisted w/ hygiene. 1654 - Pt back resting in bed. States ambulation did make her feel a little faint . No further complaints. VS monitoring continues. VSS at this time. at bedside. Call sol w/in reach.
--- NOTE | 2022-11-25 17:10 | SUR.PHASEII ---
1710 - Nellie pad checked at this time, small amount of drainage at this time. No complaints
--- NOTE | 2022-11-25 17:16 | SUR.PHASEII ---
Phone # for pt's work during weekdays
--- NOTE | 2022-11-28 20:38 | P.PNANES_ITS ---
[facility] Anesthesia Record Part II Anesthesia Record Part II Discharge Time: 12:23 Destination: Surgical Day Care (OP Surgery) PACU nurse assessment reviewed?: Yes Patient Condition:: Good Anesthesia Complications:: None Swallowing reflex intact?: Yes Airway Patency: Patent Cyanosis?: No Blood Pressure: 120/75 SaO2: 97 Respiratory Rate: 16 Pulse Rate: 70 Temperature: 97.9 F Mental Status: Alert & Oriented Pain level:: 2 Nausea and/or vomitting:: None Intake, IV Amount: 0 Hydration: Adequate
[2022-11-28 20:39] VITALS: BP 120/75; PULSE 70; RESP 16; TEMP 36.6; O2SAT 97
== END 2022-11-25 17:30 | disposition home or self-care (01) ==
PROVIDERS: PCP Nurse Practitioner Family; Visit Provider Nurse Practitioner Obstetrics & Gynecology
PROC: (CPT 59820; principal; 2022-11-25 10:45)
DX: O02.1 Missed abortion (principal); N85.4 Malposition of uterus
CPT/HCPCS: 59820; 36415; 84702; 85014; 85018; 93005; 96374; J0690; J2405

== ENCOUNTER → 2022-12-09 23:30 | Outpatient (CLI) | payer SELFPAY | PROVIDERS: PCP Nurse Practitioner Family; Visit Provider Family Medicine | DX: O02.0 Blighted ovum and nonhydatidiform mole (principal) ==

== ENCOUNTER → 2022-12-16 17:18 | Outpatient (CLI) | payer SELFPAY ==
[2022-12-16 19:41] LABS: HCG,Quantitative 5 mIU/ml (0-5.42)
== END ==
PROVIDERS: PCP Nurse Practitioner Obstetrics & Gynecology; Visit Provider Nurse Practitioner Obstetrics & Gynecology
DX: O02.0 Blighted ovum and nonhydatidiform mole (principal); Z3A.24 24 weeks gestation of pregnancy
CPT/HCPCS: 84702

== ENCOUNTER → 2022-12-23 17:55 | Outpatient (CLI) | payer SELFPAY ==
[2022-12-23 19:39] LABS: HCG,Quantitative < 2 mIU/ml (0-5.42)
== END ==
LOC: LAB.DROPOF 17:57
PROVIDERS: PCP Nurse Practitioner Obstetrics & Gynecology; Visit Provider Nurse Practitioner Obstetrics & Gynecology
DX: O02.0 Blighted ovum and nonhydatidiform mole (principal); Z3A.23 23 weeks gestation of pregnancy
CPT/HCPCS: 84702

== ENCOUNTER 2023-02-03 17:19 | Inpatient (IN) | payer SELFPAY ==
[2023-02-03] VITALS (8 sets, daily range): BP systolic 129–140; BP diastolic 75–92; PULSE 80–102; RESP 16–20; TEMP 36.8; O2SAT 96–99; BMI 34.4; BMI 35.2
--- NOTE | 2023-02-03 17:35 | CT_ITS ---
PROCEDURE INFORMATION: Exam: CT Abdomen And Pelvis With Contrast Exam date and time: 02/03/2023 6:53 PM Age: 37 years old Clinical indication: Abdominal pain; Localized; Lower; Prior surgery; Surgery date: 1-6 months; Surgery type: D and c; Additional info: Previous d c 3 mo. Low abd pain and L flank pain TECHNIQUE: Imaging protocol: Computed tomography of the abdomen and pelvis with contrast. Radiation optimization: All CT scans at this facility use at least one of these dose optimization techniques: automated exposure control; mA and/or kV adjustment per patient size (includes targeted exams where dose is matched to clinical indication); or iterative reconstruction. Contrast material: ISOVUE; Contrast volume: 75 ml; Contrast route: IV; REPORTING DATA: Count of CT and Cardiac NM exams in prior 12 months: This patient has received [address] and 0 known cardiac nuclear medicine studies in the 12 months prior to the current study. COMPARISON: CT ABDOMEN PELVIS W CON 02/09/2022 8:17 PM FINDINGS: Liver: Previously demonstrated slightly heterogeneous foci with peripheral enhancement consistent with hemangiomas again demonstrated in the right lobe of the liver. Largest lesion measures approximately 5 cm and is demonstrated in the left lobe of the liver. Gallbladder and bile ducts: Cholelithiasis Pancreas: Pancreas unremarkable Spleen: The spleen is unremarkable. Adrenal glands: Adrenal glands unremarkable. Kidneys and ureters: Persistent bilateral nonobstructing renal calculi Stomach and bowel: Colonic wall thickening with pericolonic edema and inflamed diverticulum involving the descending and sigmoid colon compatible with acute diverticulitis. Appendix: No evidence of appendicitis. Intraperitoneal space: Associated small fluid collection in the left paracolic gutter. No evidence of abscess formation. Vasculature: Unremarkable. No abdominal aortic aneurysm. Lymph nodes: Unremarkable. No enlarged lymph nodes. Urinary bladder: Unremarkable as visualized. Reproductive: Unremarkable as visualized. Bones/joints: Unremarkable. No acute fracture. Soft tissues: Fat filled inguinal hernias. Fat filled umbilical hernia IMPRESSION: 1. Acute diverticulitis involving the descending and sigmoid colon . Associated small fluid collection in the left paracolic gutter. 2. Please see above report for discussion of nonacute findings.
--- NOTE | 2023-02-03 17:36 | HMH.EDGENADL ---
Discharge Plan Disposition Patient Disposition: Admitted Chief Complaint: Abdominal Pain Clinical Impressions Clinical Impression: Diverticulitis Discharge ED Provider: Jorge Bray General Adult HPI General Chief complaint: Abdominal Pain Stated complaint: abd pain Time Seen by Provider: 02/03/23 17:26 History of Present Illness HPI narrative: Patient is a 37-year-old female with past medical history of D&C 3 months ago for molar who presents emergency department for evaluation of abdominal pain. History is obtained by patient at bedside. Patient has had acute onset left flank and low pelvic pain over the last days. No vaginal discharge, no vaginal bleeding, no dysuria. Pain is moderate to severe in intensity. No vomiting. Patient has a history of loose stools for the last 3 months that are nonbloody. Related Data Home Medications Medication Instructions Recorded Confirmed prenat.vits,zuleima,ttu-mwoo-latyl 1 tab PO DAILY Supplement 08/04/20 12/23/22 hydrochlorothiazide 25 mg tablet 25 mg PO DAILY . 07/21/21 12/23/22 cholecalciferol (vitamin D3) 50 2,000 unit PO DAILY Supplement 11/24/22 12/23/22 mcg (2,000 unit) tablet potassium chloride 10 mEq 10 meq PO DAILY Supplement 11/24/22 12/23/22 capsule,extended release Allergies Allergy/AdvReac Type Severity Reaction Status Date / Time No Known Allergies Allergy Verified 12/23/22 10:24 [facility] Disclaimer: The information contained in this section may have been updated after the patient was seen, as this information can be updated by other users. Medical History Jew ancestry Edema Hypertension Kidney stone SROM (spontaneous rupture of membranes) Urinary tract infection Family History Other Colon cancer Diabetes Heart attack Hyperthyroidism No significant family history Social History Smoking Status: Never smoker alcohol intake: never substance use type: denies use current occupational status: other Travel in the last 8 weeks: [place] the [place] adopted: No caregiver/support person: No foster care: No household members: spouse and children housing: house lives independently: Yes ROS Obtained: Yes Systems reviewed as appropriate & no additional complaints except as documented Physical Exam General General appearance: alert and in no apparent distress Head Head exam: atraumatic and normocephalic Eye Eye exam: Present PERRL and EOMI ENT ENT exam: Present mucous membranes moist Neck Neck exam: Present normal inspection Chest Chest inspection: Present normal inspection and symmetric chest wall rise Respiratory Respiratory exam: Present normal lung sounds bilaterally; Absent respiratory distress Cardiovascular Cardiovascular exam: Present regular rate and normal rhythm Abdominal Exam Abdominal exam: Present soft and tenderness (Suprapubic, left flank) Extremities Exam Extremities exam: Present normal inspection Neurological Exam Neurological exam: Present alert Psychiatric Psychiatric exam: Present normal affect Skin Skin exam: Present warm and dry Medical Decision Making Rafa Inquiry Pt receiving controlled substance: No Vital Signs: 02/03/23 17:21 02/03/23 18:00 02/03/23 18:30 Temperature 98.2 F Temperature Source Oral Pulse Rate 88 87 Pulse Rate [Right] 102 H Respiratory Rate 16 20 Blood Pressure 135/75 133/84 Blood Pressure [Right Arm] 129/92 H Blood Pressure Mean 95 94 Blood Pressure Mean [Right Arm] 104 Blood Pressure Source [Right Arm] Automatic Cuff Blood Pressure Position [Right Arm] Sitting 02 Sat by Pulse Oximetry 97 97 96 Oxygen Delivery Method Room Air Room Air 02/03/23 19:01 02/03/23 19:30 Temperature Temperature Source Pulse Rate 90 80 Pulse Rate [Right]
[2023-02-03 17:38] LABS: Microscopic, Urine URINE MICROSCOPIC (MICROSCOPIC)
[2023-02-03 17:43] LABS: Appearance,Urine CLEAR (Clear); Bilirubin,Urine Negative (Negative); Blood, Urine TRACE-I (Negative); Color,Urine YELLOW (Yellow); Glucose,Urine (UA) Negative (Negative); Ketones,Urine Negative (Negative); Leukocyte Esterase,Urine Negative (Negative); Nitrate,Urine Negative (Negative); Protein,Urine Negative (Negative); Specific Gravity, Urine <= 1.005 (1.005-1.030); Urobilinogen,Urine 0.2 EU/dl (0.2)
[2023-02-03 18:07] LABS: Basophils % 0.3 % (0.1-2.0); Eosinophils # 0.1 K/mm3 (0.0-0.4); Eosinophils % 0.9 % (0.1-12.0); Hematocrit 38.3 % (37.0-47.0); Hemoglobin 12.9 g/dL (12.2-16.2); Lymphocytes # 1.8 K/mm3 (0.7-4.5); Lymphocytes % 14.1 % (10-50); Mean Corpuscular HGB Conc 33.7 g/dL (31.8-35.4); Mean Corpuscular Hemoglobin 28.2 pg (27.0-31.2); Mean Corpuscular Volume 83.5 fl (81-99); Mean Platelet Volume 8.9 fl (7.4-10.4); Monocytes # 0.5 K/mm3 (0.1-1.0); Monocytes % 4.3 % (1.7-9.3); Neutrophils # 10.2 K/mm3 (1.8-7.8); Neutrophils % 80.5 % (37.0-80.0); Platelet Count 236 K/mm3 (142-424); Red Blood Count 4.59 M/mm3 (4.20-5.40); Red Cell Distribution Width 13.7 % (11.5-17.5); White Blood Count 12.7 K/mm3 (4.8-10.8)
[2023-02-03 18:08] LABS: Chloride 99 mmol/L (98-107); Potassium 3.4 mmoL/L (3.5-5.1); Sodium 136 mmol/L (136-145)
[2023-02-03 18:10] LABS: Blood Urea Nitrogen 10 mg/dl (7-17); Creatinine Clearance Estimated 173 mL/min (50-200); Estimated Glomerular Filt Rate 94 ml/min (>60); GFR (African American) 114 ML/MIN (>60)
[2023-02-03 18:11] LABS: Alanine Aminotransferase 27 U/L (12-78); Albumin Level 4.6 g/dl (3.5-5.0); Albumin/Globulin Ratio 1.3 (1.1-1.8); Alkaline Phosphatase 51 U/L (38-126); Anion Gap 11.4 mEq/L (5-15); Aspartate Amino Transferase 35 U/L (14-36); Bilirubin,Total 0.5 mg/dl (0.2-1.3); Calcium 9.1 mg/dl (8.4-10.2); Carbon Dioxide 29 mmol/L (22.0-30.0); Globulin 3.6 g/dL (1.3-3.2); Glucose 126 mg/dl (74-100); Lipase 25 U/L (23-300); Total Protein,Serum 8.2 g/dl (6.3-8.2)
--- NOTE | 2023-02-03 18:26 | PC.NURSE ---
Cleaned patients laceration. 2 Notable punctures to the ear and the head. Call light within reach
[2023-02-03 18:29] LABS: HCG Qualitative, Serum Negative (Negative)
[2023-02-03 19:04] LABS: WBC,Urine Occasional #/hpf (0-3)
--- NOTE | 2023-02-03 19:12 | PC.NURSE ---
Addendum entered by Josiane Cuadra RN 02/03/23 19:13: V/O from Original Note: Patient called out requesting pain medication; V/O for 4mg Morphine IVP
--- NOTE | 2023-02-03 19:18 | PC.NURSE ---
Rounded on patient; call light within reach of patient. Lights dimmed
--- NOTE | 2023-02-03 20:02 | PC.NURSE ---
OBSERVATION ADMISSION TO 212 TO SERVICE OF THE HOSPITALIST WITH DX OF DIVERTICULITIS.
--- NOTE | 2023-02-03 20:10 | PC.NURSE ---
Lab in room at present drawing second set of cultures.
--- NOTE | 2023-02-03 20:29 | PC.NURSE ---
pt arrived to floor via wheelchair @20:28
--- NOTE | 2023-02-03 21:23 | EXP.HP ---
History of Present Illness *Admission Date: 02/03/23 *Reason for visit:: Diverticulitis *History of present illness: 37 year old female presented to the ED for c/o LLQ abd pain. PMHX of HTN, kidney stones, and D % C 3 months prior. Pt reports she has had loose stools for 3 months. Her abd pain started last Tuesday. She states her pain was located in her LLQ. She mad a PCP appointment for Tuesday. On Tuesday she felt better and pain stopped. Reports use of Tylenol and Motrin at home. She states pain returned last night. Her ED workup is positive for a luekocyotsis of 12.7, hypokelmia of 3.4, and her CT scan reveals acute diverticulitis of the descending and sigmoid colon with fluid collection in the left paracolic gutter and cholelithiasis. The ED physician consulted the hospitalist team for further medical management. I admitted the pt to the medical surgical floor. She will be placed on bowel rest, receive nausea and pain medication, IV fluid hydration, and IV antibiotics. [facility] Disclaimer: The information contained in this section may have been updated after the patient was seen, as this information can be updated by other users. Medical History (Updated 02/03/23 @ 21:35 by SUKUMAR Jauregui) Aftab ancestry Edema Hypertension Kidney stone SROM (spontaneous rupture of membranes) Urinary tract infection Surgical History History of dilation and curettage Family History Other Colon cancer Diabetes Heart attack Hyperthyroidism No significant family history Social History (Updated 02/03/23 @ 20:45 by Tiana Crawford RN) Smoking Status: Never smoker alcohol intake: never substance use type: denies use current occupational status: other Travel in the last 8 weeks: Inside the [place] States adopted: No caregiver/support person: No foster care: No household members: spouse and children housing: house lives independently: Yes marital status: number of children: 10 harlan/jewish: [facility] Review of Systems *Cardiovascular Cardiovascular: Reports system reviewed and no additional complaints, except as documented *Respiratory Respiratory: Reports system reviewed and no additional complaints, except as documented *Gastrointestinal Gastrointestinal: Reports as per HPI, Reports abdominal pain and Reports loose stools *Genitourinary Genitourinary: Reports system reviewed and no additional complaints, except as documented *Musculoskeletal Musculoskeletal: Reports system reviewed and no additional complaints, except as documented *Neurologic Neurologic: Reports system reviewed and no additional complaints, except as documented Meds Home Medications and Allergies Home Medications Medication Instructions Recorded Confirmed Type hydrochlorothiazide 25 mg tablet 25 mg PO DAILY Fluid 07/21/21 02/04/23 History cholecalciferol (vitamin D3) 50 50 mcg PO DAILY Supplement 11/24/22 02/04/23 History mcg (2,000 unit) tablet potassium chloride 10 mEq 10 meq PO DAILY Supplement 11/24/22 02/04/23 History capsule,extended release vit no.95-ferrous 1 tab PO DAILY Supplement 02/04/23 02/04/23 History fumarate 28 mg-folic acid 800 mcg tablet () New Prescriptions to Start Prescriptions: Allergies Allergy/AdvReac Type Severity Reaction Status Date / Time No Known Allergies Allergy Verified 12/23/22 10:24 Exam Data for Last 24 hours Vital signs and Labs for Last 24 Hours: Temp Pulse Resp BP Pulse Ox O2 Del Method 98.3 F 96 H 16 140/85 97 Room Air 02/03/23 21:11 02/03/23 21:11 02/03/23 21:11 02/03/23 21:11 02/03/23 21:11 02/03/23 21:11 Laboratory Results - last 24 hr 02/03/23 17:30: Urine Color Yellow, Urine Appearance Clear, Urine pH 7.0, Ur Specific [place] <= 1.005, Urine Protein Negative, Urine Glucose (UA) Negative, Urine K
[2023-02-04 04:00] VITALS: BP 141/74; PULSE 89; RESP 16; TEMP 36.9; O2SAT 94; BMI 35.2
--- NOTE | 2023-02-04 05:54 | PC.NURSE ---
frequent c/o varying abd and flank pain - tx per mar - hospitalist aware. at bedside. a/ox4, ra. otherwise, pt rested t/o night.
[2023-02-04 06:27] LABS: Anion Gap 12.8 mEq/L (5-15); Blood Urea Nitrogen 9 mg/dl (7-17); Calcium 8.8 mg/dl (8.4-10.2); Carbon Dioxide 28 mmol/L (22.0-30.0); Chloride 100 mmol/L (98-107); Creatinine Clearance Estimated 155 mL/min (50-200); Estimated Glomerular Filt Rate 81 ml/min (>60); GFR (African American) 98 ML/MIN (>60); Glucose 115 mg/dl (74-100); Potassium 3.8 mmoL/L (3.5-5.1); Sodium 137 mmol/L (136-145)
[2023-02-04 06:45] LABS: Basophils % 0.2 % (0.1-2.0); Eosinophils # 0.1 K/mm3 (0.0-0.4); Eosinophils % 0.5 % (0.1-12.0); Hematocrit 34.8 % (37.0-47.0); Hemoglobin 11.8 g/dL (12.2-16.2); Lymphocytes % 19.6 % (10-50); Mean Corpuscular HGB Conc 33.8 g/dL (31.8-35.4); Mean Corpuscular Hemoglobin 28.3 pg (27.0-31.2); Mean Corpuscular Volume 83.7 fl (81-99); Mean Platelet Volume 8.9 fl (7.4-10.4); Monocytes # 0.5 K/mm3 (0.1-1.0); Monocytes % 5.3 % (1.7-9.3); Neutrophils # 7.6 K/mm3 (1.8-7.8); Neutrophils % 74.6 % (37.0-80.0); Platelet Count 226 K/mm3 (142-424); Red Blood Count 4.16 M/mm3 (4.20-5.40); Red Cell Distribution Width 13.9 % (11.5-17.5); White Blood Count 10.2 K/mm3 (4.8-10.8)
--- NOTE | 2023-02-04 07:37 | HMH.PHAINT1 ---
Pharmacy Intervention Comments: MEDICATION RECONCILIATION COMPLETED ON PATIENT USING EXTERNAL FILL HISTORY FROM PHARMACY. -MIL VICTOR, PILID
[2023-02-04 08:00] VITALS: BP 133/73; PULSE 98; RESP 16; TEMP 37.1; O2SAT 96
--- NOTE | 2023-02-04 08:53 | PC.NURSE ---
COURTESY TECH NOTE; ROUNDED ON PT, PT DENIED NEED FOR ASSISTANCE WITH RESTROOM AND NEED TO REPOSITION IN BED. CALL LIGHT WITHIN REACH, NO FURTHER REQUESTS AT THIS TIME TANIKA CARDENAS
[2023-02-04 10:52] LABS: Adenovirus F 40/41, stool Not Detected (NotDetected); Astrovirus Not Detected (NotDetected); Campylobacter Not Detected (NotDetected); Clostridium Difficile A/B, PCR Not Detected (NotDetected); Cryptosporidium Not Detected (NotDetected); Cyclospora Cayetanesis Not Detected (NotDetected); Entamoeba histolytica Not Detected (NotDetected); Enteroaggregative E coli Not Detected (NotDetected); Enteropathogenic E coli Not Detected (NotDetected); Enterotoxigenic E coli Not Detected (NotDetected); Giardia lamblia Not Detected (NotDetected); Norovirus Not Detected (NotDetected); Plesimonas Shigalloides, PCR Not Detected (NotDetected); Rotavirus A Not Detected (NotDetected); Salmonella, PCR Not Detected (NotDetected); Shiga-like toxin E coli Not Detected (NotDetected); Shigella Enterovasive E coli Not Detected (NotDetected); Vibrio Cholerae Not Detected (NotDetected); Vibrio, PCR Not Detected (NotDetected); Yersinia Entercolitica, PCR Not Detected (NotDetected)
[2023-02-04 14:06] VITALS: BMI 35.2
--- NOTE | 2023-02-04 15:31 | EXP.PN ---
Subjective *Date: 02/04/23 *Time: 15:31 Interval history: Patient was seen and evaluated at the bedside. denies chest pain, shortness of breath, nausea, vomiting, abdominal pain. Patient does not have any complaints at this time. feels better overall Exam Data for Last 24 hours Vital signs and Labs for Last 24 Hours: Temp Pulse Resp BP Pulse Ox O2 Del Method 98.8 F 98 H 16 133/73 96 Room Air 02/04/23 08:00 02/04/23 08:00 02/04/23 08:00 02/04/23 08:00 02/04/23 08:00 02/04/23 15:00 Laboratory Results - last 24 hr 02/03/23 17:30: Urine Color Yellow, Urine Appearance Clear, Urine pH 7.0, Ur Specific [place] <= 1.005, Urine Protein Negative, Urine Glucose (UA) Negative, Urine Ketones Negative, Urine Blood Trace-i, Urine Nitrate Negative, Urine Bilirubin Negative, Urine Urobilinogen 0.2, Ur Leukocyte Esterase Negative, Urine RBC None, Urine WBC Occasional, Ur Squamous Epith Cells 3-5, Urine Bacteria None 02/03/23 17:54: WBC 12.7 H, RBC 4.59, Hgb 12.9, Hct 38.3, MCV 83.5, MCH 28.2, MCHC 33.7, RDW 13.7, Plt Count 236, MPV 8.9, Neut % (Auto) 80.5 H, Lymph % (Auto) 14.1, [place] % (Auto) 4.3, Eos % (Auto) 0.9, Baso % (Auto) 0.3, Neut # (Auto) 10.2 H, Lymph # (Auto) 1.8, [place] # (Auto) 0.5, Eos # (Auto) 0.1, Baso # (Auto) 0.0, Sodium 136, Potassium 3.4 L, Chloride 99, Carbon Dioxide 29, Anion Gap 11.4, BUN 10, Creatinine 0.70, Estimated Creat Clear 173, Estimated GFR 94, Est GFR ( Amer) 114, Glucose 126 H, Calcium 9.1, Total Bilirubin 0.5, AST 35, ALT 27, Alkaline Phosphatase 51, Total Protein 8.2, Albumin 4.6, Globulin 3.6 H, Albumin/Globulin Ratio 1.3, Lipase 25, Serum HCG, Qual Negative 11/03/23 05:14: WBC 10.2, RBC 4.16 L, Hgb 11.8 L, Hct 34.8 L, MCV 83.7, MCH 28.3, MCHC 33.8, RDW 13.9, Plt Count 226, MPV 8.9, Neut % (Auto) 74.6, Lymph % (Auto) 19.6, [place] % (Auto) 5.3, Eos % (Auto) 0.5, Baso % (Auto) 0.2, Neut # (Auto) 7.6, Lymph # (Auto) 2.0, [place] # (Auto) 0.5, Eos # (Auto) 0.1, Baso # (Auto) 0.0, Sodium 137, Potassium 3.8, Chloride 100, Carbon Dioxide 28, Anion Gap 12.8, BUN 9, Creatinine 0.80, Estimated Creat Clear 155, Estimated GFR 81, Est GFR ( Amer) 98, Glucose 115 H, Calcium 8.8 I & O for Last 24 hours: Intake & Output 02/01/23 02/02/23 02/03/23 02/04/23 23:59 23:59 23:59 23:59 Intake Total 884 / 884 Output Total 0 / 0 0 / 0 Balance 0 / 524 884 / 884 Weight 101.922 kg 101.92 kg Constitutional Constitutional: no acute distress *Routine HEENT Exam Head: Present normocephalic Eye: Present EOMI and PERRL ENT: Present mucous membranes moist *Routine Neck Exam Neck: Present supple; Absent lymphadenopathy *Routine Respiratory Exam Respiratory: Present CTA bilaterally *Routine Cardiovascular Exam Cardiovascular: Present RRR *Routine Abdominal Exam Abdominal: Present soft and normoactive bowel sounds; Absent tenderness *Routine Extremities Exam Extremities: Absent cyanosis, clubbing or edema *Routine Skin Exam Skin: Present warm; Absent rash *Routine Neurological Exam Neurological: Present alert and oriented X3 Assessment and Plan *Assessment and plan (1) Diverticulitis: Status: Acute Category: Medical Code(s): K57.92 - Diverticulitis of intestine, part unspecified, without perforation or abscess without bleeding (2) Cholelithiasis: Status: Acute Category: Medical Code(s): K80.20 - Calculus of gallbladder without cholecystitis without obstruction (3) Hypokalemia: Status: Acute Category: Medical Code(s): E87.6 - Hypokalemia (4) Kidney stone: Status: Acute Category: Medical Code(s): N20.0 - Calculus of kidney (5) Hypertension: Status: Acute Category: Medical Code(s): I10 - Essential (primary) hypertension Plan Patient is a 37-year-old female with past medical history of hypertension kidney stones who presented to hospital due to lower abdominal pain. According to patient this has b
[2023-02-04 16:00] VITALS: BP 125/74; PULSE 93; RESP 16; TEMP 36.9; O2SAT 99
[2023-02-04 20:00] VITALS: BP 150/85; PULSE 101; RESP 16; TEMP 36.9; O2SAT 96
--- NOTE | 2023-02-05 03:51 | PC.NURSE ---
No acute changes noted. Patient able to tolerate diet. Abdominal pain noted, prn medication used to relieve symptoms. VS stable and patient remained on room air.
[2023-02-05 04:00] VITALS: BP 124/78; PULSE 74; RESP 16; TEMP 36.6; O2SAT 98
[2023-02-05 07:27] VITALS: BP 152/87; PULSE 84; RESP 19; TEMP 36.6; O2SAT 99
--- NOTE | 2023-02-07 15:51 | CARE MANAGER ---
Family called back after call related to discharge. They state she is doing well. Discussed issues and denies any other questions.PHUONG Soares
[2023-02-09 08:13] LABS: Sapovirus Not Detected (NotDetected)
== END 2023-02-05 11:51 | disposition home or self-care (01) | DRG 392 ==
LOC: ER 18:38 → 2ND 20:04
PROVIDERS: Nurse Practitioner Critical Care Medicine; Admitting Provider Internal Medicine; Emergency Provider Emergency Medicine; PCP Nurse Practitioner Family; Visit Provider Internal Medicine
DX: K57.32 Diverticulitis of large intestine without perforation or abscess without bleeding (principal); E87.6 Hypokalemia; I10 Essential (primary) hypertension; Z79.899 Other long term (current) drug therapy; K80.20 Calculus of gallbladder without cholecystitis without obstruction; N20.0 Calculus of kidney
CPT/HCPCS: 36415; 74177; 80048; 80053; 81001; 83690; 84703; 85025; 87040; 87507; 99285; J2543; Q9967

== ENCOUNTER 2023-11-15 15:40 | Outpatient (CLI) | payer SELFPAY | END 2023-11-15 23:59 | disposition home or self-care (01) | LOC: LAB.DROPOF 11-16 12:28 | PROVIDERS: PCP Nurse Practitioner Obstetrics & Gynecology; Visit Provider Nurse Practitioner Obstetrics & Gynecology | DX: Z34.90 Encounter for supervision of normal pregnancy, unspecified, unspecified trimester (principal) | CPT/HCPCS: 86403 ==

== ENCOUNTER 2023-11-28 04:38 | Inpatient (IN) | payer SELFPAY ==
[2023-11-28] VITALS (8 sets, daily range): BP systolic 136–149; BP diastolic 80–86; PULSE 74–86; RESP 16–18; TEMP 36.7; O2SAT 93–95; BMI 35.2; BMI 35.3
[2023-11-28 05:22] LABS: Basophils % 0.5 % (0.1-2.0); Eosinophils % 0.7 % (0.1-12.0); Hematocrit 35.8 % (37.0-47.0); Hemoglobin 11.5 g/dL (12.2-16.2); Lymphocytes # 2.1 K/mm3 (0.7-4.5); Lymphocytes % 31.5 % (10-50); Mean Corpuscular HGB Conc 32.2 g/dL (31.8-35.4); Mean Corpuscular Hemoglobin 29.6 pg (27.0-31.2); Mean Corpuscular Volume 91.9 fl (81-99); Mean Platelet Volume 10.4 fl (7.4-10.4); Monocytes # 0.3 K/mm3 (0.1-1.0); Monocytes % 5.1 % (1.7-9.3); Neutrophils # 4.1 K/mm3 (1.8-7.8); Neutrophils % 62.1 % (37.0-80.0); Platelet Count 180 K/mm3 (142-424); Red Blood Count 3.89 M/mm3 (4.20-5.40); Red Cell Distribution Width 16.6 % (11.5-17.5); White Blood Count 6.7 K/mm3 (4.8-10.8)
[2023-11-28 06:51] LABS: Microscopic, Urine URINE MICROSCOPIC (MICROSCOPIC)
[2023-11-28 06:54] LABS: Appearance,Urine CLEAR (Clear); Bilirubin,Urine Negative (Negative); Blood, Urine 1+ (Negative); Color,Urine YELLOW (Yellow); Glucose,Urine (UA) Negative (Negative); Ketones,Urine Negative (Negative); Leukocyte Esterase,Urine TRACE (Negative); Nitrate,Urine Negative (Negative); PH,Urine 6.5 (5.0-8.5); Protein,Urine 1+ (Negative); Urobilinogen,Urine 0.2 EU/dl (0.2)
[2023-11-28 07:25] LABS: Bacteria,Urine 2+ /lpf; Calcium Oxalate Crystals,Urine 1+ /lpf
[2023-11-28 07:28] LABS: Amorphous Sediment,Urine Trace /lpf
--- NOTE | 2023-11-28 08:55 | EXP.LABOR.NO ---
Labor Note Subjective: Date: 11/28/23 Time: 08:55 irregular contractions Objective: NST:: Reactive Contractions:: infrequent Cervical Dilation:: 2-3 Effacement:: 50% Station: -2 Membranes: artificially ruptured Comment:: I ruptured membranes and there was clear fluid. Fetus: Monitoring?: Yes monitoring type:: External Assessment: Labor progressing?: No Cephalopelvic disproportion?: No Plan: Anesthesia for epidural?: Yes Continue to labor down?: Yes Plan for ?: No Continue to monitor?: Yes Start pushing?: No Comment:: We will expect a vaginal delivery.
--- NOTE | 2023-11-28 09:21 | EXP.HP ---
History of Present Illness *Admission Date: 11/28/23 *Reason for visit:: Term , grand multiparity *History of present illness: She is a 38-year-old 17 para 10 aborta 6 at 39 weeks gestational age. She requested delivery in the hospital because she wants an epidural when she delivers. She has a history of hemorrhage. [facility] Disclaimer: The information contained in this section may have been updated after the patient was seen, as this information can be updated by other users. Medical History Hypokalemia Diverticulitis Hypertension Molar Restorationism ancestry Gestational hypertension Grand multiparity Surgical History History of dilation and curettage Family History No significant family history Colon cancer Diabetes Hyperthyroidism Heart attack Social History Smoking Status: Never smoker alcohol intake: never substance use type: denies use current occupational status: unemployed Travel in the last 8 weeks: None adopted: No caregiver/support person: No foster care: No household members: spouse and children housing: house lives independently: Yes marital status: number of children: 10 harlan/sikh: Restorationism Review of Systems Review of Systems Review of systems:: pertinent systems reviewed and negative unless documented below Meds Home Medications and Allergies Home Medications ?Medication ?Instructions ?Recorded ?Confirmed ?Type hydrochlorothiazide 25 mg tablet 25 mg PO DAILY 07/21/21 11/28/23 History cholecalciferol (vitamin D3) 50 50 mcg PO DAILY 11/24/22 11/28/23 History mcg (2,000 unit) tablet potassium chloride 10 mEq 10 meq PO DAILY 11/24/22 11/28/23 History capsule,extended release vit no.95-ferrous 1 tab PO DAILY Supplement 02/04/23 11/28/23 History fumarate 28 mg-folic acid 800 mcg tablet () New Prescriptions to Start Prescriptions: Allergies Allergy/AdvReac Type Severity Reaction Status Date / Time No Known Allergies Allergy Verified 11/15/23 15:24 Exam Data for Last 24 hours Vital signs and Labs for Last 24 Hours: Laboratory Results - last 24 hr 11/28/23 05:07: WBC 6.7, RBC 3.89 L, Hgb 11.5 L, Hct 35.8 L, MCV 91.9, MCH 29.6, MCHC 32.2, RDW 16.6, Plt Count 180, MPV 10.4, Neut % (Auto) 62.1, Lymph % (Auto) 31.5, [place] % (Auto) 5.1, Eos % (Auto) 0.7, Baso % (Auto) 0.5, Neut # (Auto) 4.1, Lymph # (Auto) 2.1, [place] # (Auto) 0.3, Eos # (Auto) 0.0, Baso # (Auto) 0.0 11/28/23 05:41: Urine Color Yellow, Urine Appearance Clear, Urine pH 6.5, Ur Specific [place] 1.020, Urine Protein 1+, Urine Glucose (UA) Negative, Urine Ketones Negative, Urine Blood 1+, Urine Nitrate Negative, Urine Bilirubin Negative, Urine Urobilinogen 0.2, Ur Leukocyte Esterase Trace, Urine RBC 10-20, Urine WBC 5-10, Ur Squamous Epith Cells 10-20, Calcium Oxalate Crystal 1+, Amorphous Sediment Trace, Urine Bacteria 2+ I & O for Last 24 hours: Intake & Output 11/25/23 11/26/23 11/27/23 11/28/23 11:59 11:59 11:59 11:59 Weight 224 lb 15.99 oz Constitutional Constitutional: no acute distress *Routine HEENT Exam Head: Present normocephalic Eye: Present EOMI and PERRL ENT: Present mucous membranes moist *Routine Neck Exam Neck: Present supple; Absent lymphadenopathy *Routine Respiratory Exam Respiratory: Present CTA bilaterally *Routine Cardiovascular Exam Cardiovascular: Present RRR *Routine Abdominal Exam Abdominal: Present soft and normoactive bowel sounds; Absent tenderness *Routine Rectal Exam Rectal:: deferred *Routine Genitalia Exam Genitalia:: deferred *Routine Extremities Exam Extremities: Absent cyanosis, clubbing or edema *Routine Skin Exam Skin: Present warm; Absent rash *Routine
--- NOTE | 2023-11-28 13:39 | EXP.LABOR.NO ---
Labor Note Subjective: Date: 11/28/23 Time: 10:40 irregular contractions Objective: NST:: Reactive Contractions:: infrequent Cervical Dilation:: 2 Effacement:: 50% Station: -3 Membranes: artificially ruptured Fetus: Monitoring?: Yes monitoring type:: External Assessment: Labor progressing?: No Cephalopelvic disproportion?: No Plan: Anesthesia for epidural?: No Continue to labor down?: Yes Plan for ?: No Continue to monitor?: Yes Start pushing?: No Additional information:: She is margarita irregularly. Cervix has not changed. We will continue to increase the oxytocin up to 30 mg
--- NOTE | 2023-11-28 13:41 | EXP.LABOR.NO ---
Labor Note Subjective: Date: 11/28/23 Time: 13:41 irregular contractions Objective: Contractions:: every 4-5 minutes Cervical Dilation:: 2-3 Effacement:: 50% Station: -2 Membranes: artificially ruptured Fetus: Monitoring?: Yes Assessment: Labor progressing?: Yes Cephalopelvic disproportion?: No Plan: Anesthesia for epidural?: Yes Continue to labor down?: Yes Plan for ?: No Continue to monitor?: No Comment:: She is up to 30 mcg/min and we will increase all the way to 40 mcg/min. Her contractions are starting to get a little more regular. They are still quite mild. The head is better engaged
--- NOTE | 2023-11-28 17:19 | EXP.LABOR.NO ---
Labor Note Subjective: Date: 11/28/23 Time: 17:19 irregular contractions Objective: NST:: Reactive Contractions:: infrequent Cervical Dilation:: 2-3 Effacement:: 50% Station: -2 Membranes: artificially ruptured Fetus: Monitoring?: Yes monitoring type:: External Assessment: Labor progressing?: No Cephalopelvic disproportion?: No Plan: Anesthesia for epidural?: No Continue to labor down?: No Plan for ?: Yes Continue to monitor?: Yes Comment:: Despite 40 milliunits of oxytocin she continues to have minimal contractions and no change in her cervix. She discussed with her and she would like to go ahead with a and tubal ligation. I suspect that the receptors on her uterus are insufficient to cause regular contractions. I am also concerned about hemorrhage because she has had this in the past. We will do a prophylactic B madsen suture at the time of her . We discussed the risks of surgery that includes bleeding, infection, injuries to the bowel and bladder. Discussed the rare risk of DVT and the need for DVT prophylaxis. All questions were answered and consents were signed. She would like a tubal ligation because of her previous history of hemorrhage and she did not want to get again.
--- NOTE | 2023-11-28 17:37 | PC.NURSE ---
1719- Surgery team and Dr Ramirez paged 1722- Tejal called (anesthesia) 1723- L.King BACA called 1724- Tawana (reproductive surgeon) called 1726- Dr Ramirez notified
--- NOTE | 2023-11-28 18:15 | P.PNANES_ITS ---
[facility] Disclaimer: The information contained in this section may have been updated after the patient was seen, as this information can be updated by other users. Medical History Hypokalemia Diverticulitis Hypertension Molar Aftab ancestry Gestational hypertension Grand multiparity Surgical History History of dilation and curettage Family History No significant family history Colon cancer Diabetes Hyperthyroidism Heart attack Social History Smoking Status: Never smoker alcohol intake: never substance use type: denies use current occupational status: unemployed Travel in the last 8 weeks: None adopted: No caregiver/support person: No foster care: No household members: spouse and children housing: house lives independently: Yes marital status: number of children: 10 harlan/latter day: [facility] Anesthesia Checklist Patient Identification Patient Identification: Arm Band, Family and Verbal (Name & ) Structural Data Admitted From: Inpatient (Rm [id number]) Planned Operative Procedure/s: Repeat C-sxn w/RASHIDA salp Consent for Planned Operative Procedure(s) Verified: Yes Verified Documents: Surgical Consent and History and Physical NPO Status Verified Time NPO: 15:00 Chart Verification Results Verified: CBC, BMP, ECG and Chest Xray Additional verifications Patient : Yes (39 wk IUP) Anesthesia Reactions: No Hx Blood Transfusions: Yes Blood Transfusion Reaction: No Cardiovascular Assessment Heart Sounds: S1 & S2 Pulse Rhythm: Irregular Peripheral Edema: No Airway Assessment Mallampati Score:: Class II C-Spine Mobility Assessed: Yes (FROM demonstrated) TMJ Mobility Assessed: Yes Dentition: Dentures-good fit (Nothing loose per pt.) Neurological Assessment Level of Consciousness: Awake, Alert, Appropriate and Follows Commands Hx Seizures: No Numbness or tingling in extremities: No Anesthesia Plan Anesthesia Risk discussed: Yes Anesthesia Plan: Verified ASA Class: III Anesthesia Type: Spinal (w/RASHIDA TAP block)
--- NOTE | 2023-11-28 19:43 | EXP.OP.NOTE ---
Date of procedure: 11/28/23 Pre-op Diagnosis:: Uterine atony. Term . Grand multiparity. Advanced maternal age. Desire for sterilization. Post-op Diagnosis:: Uterine atony, term , grand multiparity, advanced maternal age, desire for sterilization Procedure performed:: Primary lower segment transverse section and bilateral salpingectomy. B-madsen suture Surgeon:: Jose March MD Integration Consultant(s):: Dr. Ramirez DIGITAL PERFORMANCE ANALYST:: Tejal Blanc Anesthesia: spinal Estimated blood loss (mL): 800 Clinical Note:: She is a 38-year-old 17 para 10 aborta 6 who was 39 weeks gestational age. She was brought in in the morning of November 28, 2023 for induction of labor at term. She expressed desire for epidural. She was started on IV oxytocin had her membranes ruptured. She really failed to progress beyond 2 to 3 cm. She really was not having contractions despite 40 milliunits of oxytocin. As result of that she requested a and I agreed that with the uterine atony, history of severe hemorrhage and the fact that she did not want to have anymore children, we elected perform a primary lower segment transverse section and bilateral to me. It Operative findings:: She delivered a liveborn female child at 6:51 PM in the evening of November 28, 2023. The baby had Apgars of 8 at 1 and 9 at 5 minutes. She weighed 7 pounds 14 ounces. Operative note:: She was taken to the operating room where spinal anesthesia was found be adequate. She was prepped and draped in normal sterile fashion in the supine position.. A [place] catheter was in the bladder. A Pfannenstiel skin incision was made with knife then carried through to the underlying layer of fascia with cautery. The fascia was opened in the midline with cautery and extended laterally using Carter scissors. Vero clamps were applied to the superior aspect of the fascial incision which was tented up and the underlying rectus muscles dissected off using cautery. The Vero clamps were then applied to the inferior aspect of the fascial incision which in a similar fashion was tented up and the underlying rectus muscles dissected off using cautery. The rectus muscles were then in the midline, the peritoneum identified, and entered sharply with Metzenbaum scissors. This incision was then extended superiorly and inferiorly with cautery. We had good visualization of the bladder inferiorly. The bladder peritoneum was then opened in the midline and extended laterally using Metzenbaum scissors. A bladder flap was created digitally. Transverse incision was made through the uterine muscle to the amnion. This incision was then extended laterally using fingers traction. The amnion was entered sharply with knife. There was clear amniotic fluid. The infant's head was then delivered atraumatically. This was followed by the anterior shoulder and the rest of the 's body atraumatically. The oropharynx and nasopharynx were bulb suctioned. The baby was vigorous so we allowed the cord to continue to pulsate for approximately 1 minute. The was then handed off to Dr. Duffy who assigned Apgars of 8 at 1 minute and 9 at 5 minutes. Using gentle traction on the cord and countertraction on the fundus I was able to easily deliver the placenta intact. It had a normal three-vessel cord. The uterus was then cleared of clots and debris . The uterus was then exteriorized from the abdominal cavity. The uterine incision was then closed using running 0 Vicryl suture in a locked fashion. A second layer of the same suture was used to imbricate the first layer. There was some bleeding along the uterine incision and on the left side of the incision. We used multiple [id number] sutures here to obtain excellent hemostasis. The bladder peritoneum was then closed using running 2-0 Vicryl suture in a locked fashion. The gutters and cul-de-sac were then cleared of clots and debris . The uterus was fou
--- NOTE | 2023-11-28 20:23 | EXP.ANES.I ---
[facility] Anesthesia Record Part I Anesthesia Record I Intake, IV Amount: 1,400 Hydration: Adequate Estimated blood loss (mL): 550 Urine output (mL): 300 Blood Products used (#): none Blood Pressure: 136/80 SaO2: 93 Pulse Rate: 86 Airway Patency: Patent Respiratory Rate: 16 Temperature: 98.0 F Patient is:: Awake (Talking) and Stable Stable to PACU at:: 20:10
--- NOTE | 2023-11-28 21:18 | SUR.PHASEI ---
185- viable female born at this time 185-per MD March, no cord blood needed at this time 1939- verbal order from MD March to give 400mcg cytotec DE once NOW while in OR, orders received and carried out 2014- QBL >1,000. 2018- 2nd PIV placed in pt's LAC by this RN 2023- MD March notified, NNO 2036- Bedside report given to PHUONG Johnston. pt bed in lowest position, call light placed in reach.
[2023-11-28 21:35] LABS: Hematocrit 31.1 % (37.0-47.0)
[2023-11-28 21:39] LABS: Hemoglobin 10.3 g/dL (12.2-16.2)
[2023-11-28 21:52] LABS: Microscopic, Urine URINE MICROSCOPIC (MICROSCOPIC)
[2023-11-28 22:30] LABS: Appearance,Urine CLEAR (Clear); Bilirubin,Urine Negative (Negative); Blood, Urine TRACE-I (Negative); Color,Urine YELLOW (Yellow); Glucose,Urine (UA) Negative (Negative); Ketones,Urine 1+ (Negative); Leukocyte Esterase,Urine TRACE (Negative); Nitrate,Urine Negative (Negative); Protein,Urine Negative (Negative)
[2023-11-28 23:07] LABS: Bacteria,Urine 1+ /lpf
[2023-11-29 03:58] VITALS: BP 113/56; PULSE 77; RESP 17; TEMP 36.8; O2SAT 96
[2023-11-29 06:58] LABS: Basophils % 0.2 % (0.1-2.0); Eosinophils % 0.4 % (0.1-12.0); Hematocrit 29.6 % (37.0-47.0); Hemoglobin 9.6 g/dL (12.2-16.2); Lymphocytes # 1.9 K/mm3 (0.7-4.5); Lymphocytes % 19.7 % (10-50); Mean Corpuscular HGB Conc 32.6 g/dL (31.8-35.4); Mean Corpuscular Hemoglobin 29.8 pg (27.0-31.2); Mean Corpuscular Volume 91.4 fl (81-99); Mean Platelet Volume 10.2 fl (7.4-10.4); Monocytes # 0.4 K/mm3 (0.1-1.0); Monocytes % 3.7 % (1.7-9.3); Neutrophils # 7.2 K/mm3 (1.8-7.8); Platelet Count 181 K/mm3 (142-424); Red Blood Count 3.23 M/mm3 (4.20-5.40); Red Cell Distribution Width 16.7 % (11.5-17.5); White Blood Count 9.5 K/mm3 (4.8-10.8)
[2023-11-29 09:05] VITALS: BP 111/57; PULSE 68; RESP 16; TEMP 36.6; O2SAT 96
--- NOTE | 2023-11-29 09:08 | EXP.ANES.II ---
[facility] Anesthesia Record Part II Anesthesia Record Part II Discharge Time: 20:35 Destination: Obstetric PACU nurse assessment reviewed?: Yes Patient Condition:: Good Anesthesia Complications:: None Swallowing reflex intact?: Yes Airway Patency: Patent Cyanosis?: No Blood Pressure: 147/85 SaO2: 95 Respiratory Rate: 17 Pulse Rate: 74 Temperature: 98.0 F Mental Status: Alert & Oriented Pain level:: 8 Nausea and/or vomitting:: None Intake, IV Amount: 1,000 Hydration: Adequate
[2023-11-29 09:10] VITALS: BP 147/85; PULSE 74; RESP 17; TEMP 36.7; O2SAT 95
[2023-11-29 10:15] LABS: POC Glucose,Bedside 111 (70-110)
[2023-11-29 12:20] LABS: Rapid Plasma Reagin Ab Titer Non Reactive titer (NonRea<1:1)
--- NOTE | 2023-11-29 13:53 | EXP.DC.SUM ---
General Admission date:: 11/28/23 Discharge date: 11/30/23 HPI HPI HPI: She is a 38-year-old 17 para 10 aborta 6 at 39 weeks gestational age. She requested delivery in the hospital because she wants an epidural when she delivers. She has a history of hemorrhage. Hospital Course Hospital Course Hospital Course: We had started her on IV oxytocin and rupture membranes. She really did not get any strong contractions despite using oxytocin up to 40 milliunits/min. We discussed this later in the day and she said she would like a and tubal ligation given her previous history of severe hemorrhage and the risk of hemorrhage with this . She underwent a primary lower segment transverse section and bilateral salpingectomy on the evening of November 28, 2023. She delivered a liveborn female child with Apgars of 8 at 1 minute and 8 at 5 minutes. She did have some bleeding at the time of her surgery and lost approximately 1300 cc during the surgery due to uterine atony. She received IV oxytocin as well as Cytotec and required a B-madsen suture. Subsequently she has done well and her hemoglobin postoperatively is 9.6. She does appear pale. She is having some issues with pain control and Dilaudid 2 mg seems to help. We are also giving her ibuprofen and Tylenol.. She received Cytotec every 6 hours as well for the first 24 hours. Her lochia is normal. She would like to go home today and will be discharged home to follow-up with me as needed. She will continue with her home medications as well as vitamins and iron. She was given a prescription for Dilaudid 2 mg number 20 tablets to take every 4-6 hours as needed for pain. She has [id number] ibuprofen at home. She will restart her iron tablets and vitamins as well. She will continue with breast-feeding. She has A Rh+ blood. She was given the usual instructions with respect to limiting her activity, sexual activity and wound care. Exam Data for Last 24 hours Vital signs and Labs for Last 24 Hours: Temp Pulse Resp BP Pulse Ox O2 Del Method 97.9 F 68 17 111/57 L 96 Room Air 11/29/23 09:05 11/29/23 09:05 11/29/23 09:10 11/29/23 09:05 11/29/23 09:05 11/29/23 09:05 Laboratory Results - last 24 hr 11/28/23 05:07: RPR Titer Non reactive 11/28/23 18:30: Urine Color Yellow, Urine Appearance Clear, Urine pH 7.0, Ur Specific Stewart 1.020, Urine Protein Negative, Urine Glucose (UA) Negative, Urine Ketones 1+, Urine Blood Trace-i, Urine Nitrate Negative, Urine Bilirubin Negative, Urine Urobilinogen 1.0, Ur Leukocyte Esterase Trace, Urine RBC 5-10, Urine WBC 10-20, Ur Squamous Epith Cells 3-5, Urine Bacteria 1+ 11/28/23 21:22: Hgb 10.3 L D, Hct 31.1 L 11/29/23 06:31: WBC 9.5 D, RBC 3.23 L, Hgb 9.6 L, Hct 29.6 L, MCV 91.4, MCH 29.8, MCHC 32.6, RDW 16.7, Plt Count 181, MPV 10.2, Neut % (Auto) 76.0, Lymph % (Auto) 19.7, [place] % (Auto) 3.7, Eos % (Auto) 0.4, Baso % (Auto) 0.2, Neut # (Auto) 7.2, Lymph # (Auto) 1.9, [place] # (Auto) 0.4, Eos # (Auto) 0.0, Baso # (Auto) 0.0 11/29/23 09:53: POC Glucose 111 H I & O for Last 24 hours: Intake & Output 11/27/23 11/28/23 11/29/23 11/30/23 11:59 11:59 11:59 11:59 Intake Total 2400 / 2400 Balance 2400 / 2400 Weight 224 lb 15.99 oz Microbiology Reports for the Last 24 Hours: Microbiology 11/28/23 05:41 Urine,Clean Catch Urine Culture - Final Multiple organisms, suggests contamination. Constitutional Constitutional: no acute distress Comments: She looks pale. *Routine HEENT Exam Head: Present normocephalic ENT: Present mucous membranes moist *Routine Respiratory Exam Respiratory: Present normal respiratory effort; Absent accessory muscle use Results Data Completed and Pending Labs on day of discharge: Labs from last 24 hours 11/29/23 11/29/23 11/28/23 09:53 06:31 21:22 WBC 9.5 D
[2023-11-30 09:15] VITALS: BP 148/82; PULSE 88; RESP 16; TEMP 36.7; O2SAT 98
--- NOTE | 2023-11-30 13:50 | P.PN_ITS ---
Subjective *Date: 11/29/23 *Time: 08:30 Interval history: She is doing well this morning although she does have some difficulty with pain control. She has been taking intravenous Dilaudid. Hemoglobin is 9.6. She does look pale. She denies any shortness of breath, chest pain or calf ten derness. Medical Exam Vital signs and Labs for Last 24 Hours: Vital Signs Temp Pulse Resp BP Pulse Ox O2 Del Method 11/30/23 09:15 98.1 F 88 16 148/82 H 98 Room Air I & O for Labs for Last 24 Hours: Intake & Output 11/28/23 11/29/23 11/30/23 12/01/23 11:59 11:59 11:59 11:59 Intake Total 2400 / 2400 Output Total 500 / 500 500 / 500 Balance 1900 / 1900 -500 / -500 Weight 224 lb 15.99 oz Head: Present atraumatic ENT: Present normal exam Neck: Present normal inspection Respiratory: Present normal respiratory effort; Absent accessory muscle use Assessment and Plan *Assessment and plan (1) Encounter for female sterilization procedure: Status: Acute Category: Medical Code(s): Z30.2 - Encounter for sterilization (2) Uterine atony, , current hospitalization: Status: Acute Category: Medical Code(s): O72.1 - Other immediate hemorrhage (3) delivery delivered: Status: Acute Category: Medical Code(s): O82 - Encounter for delivery without indication Plan We initially were going to send her home today but since she is having difficulty with pain control she wanted to spend the night with us. We will plan to send her home tomorrow.
== END 2023-11-30 12:12 | disposition home or self-care (01) | DRG 784 ==
PROVIDERS: Obstetrics & Gynecology; Admitting Provider Nurse Practitioner Obstetrics & Gynecology; PCP Nurse Practitioner Family; Visit Provider Nurse Practitioner Obstetrics & Gynecology
PROC: 10D00Z1 Extraction of Products of Conception, Low, Open Approach (ICD-10-PCS; CPT 59514; principal; 2023-11-28 18:00)
DX: O61.0 Failed medical induction of labor (principal); O72.1 Other immediate postpartum hemorrhage; Z3A.39 39 weeks gestation of pregnancy; Z37.0 Single live birth; Z30.2 Encounter for sterilization
CPT/HCPCS: 59514; 58611; 36415; 59025; 81001; 82962; 85014; 85018; 85025; 86593; 86850; 87086; 94761; C1758; C9290; G0283; J1100; J1170; J1885; J2405; J3010; J7120

== ENCOUNTER 2023-12-02 09:50 | Outpatient (CLI) | payer SELFPAY ==
[2023-12-02] VITALS (8 sets, daily range): BP systolic 116–151; BP diastolic 69–88; PULSE 52–80; RESP 16–17; TEMP 36.6–36.9; O2SAT 95–100; BMI 33.6; BMI 33.7
--- NOTE | 2023-12-02 10:05 | PC.NURSE ---
Pt. arrived to room 272 via wheelchair, for triage assessment. Nurse x2 with pt. and spouse
[2023-12-02 10:21] LABS: Basophils % 0.4 % (0.1-2.0); Eosinophils # 0.1 K/mm3 (0.0-0.4); Eosinophils % 2.3 % (0.1-12.0); Hematocrit 27.3 % (37.0-47.0); Hemoglobin 8.9 g/dL (12.2-16.2); Lymphocytes # 1.2 K/mm3 (0.7-4.5); Lymphocytes % 29.2 % (10-50); Mean Corpuscular HGB Conc 32.5 g/dL (31.8-35.4); Mean Corpuscular Hemoglobin 29.7 pg (27.0-31.2); Mean Corpuscular Volume 91.3 fl (81-99); Mean Platelet Volume 11.1 fl (7.4-10.4); Monocytes # 0.2 K/mm3 (0.1-1.0); Monocytes % 3.5 % (1.7-9.3); Neutrophils # 2.7 K/mm3 (1.8-7.8); Neutrophils % 64.6 % (37.0-80.0); Platelet Count 204 K/mm3 (142-424); Red Blood Count 2.99 M/mm3 (4.20-5.40); Red Cell Distribution Width 16.6 % (11.5-17.5); White Blood Count 4.2 K/mm3 (4.8-10.8)
[2023-12-02 10:31] LABS: Alanine Aminotransferase 22 U/L (12-78); Alkaline Phosphatase 53 U/L (38-126); Anion Gap 6.7 mEq/L (5-15); Aspartate Amino Transferase 31 U/L (14-36); Bilirubin,Total 0.3 mg/dl (0.2-1.3); Blood Urea Nitrogen 5 mg/dl (7-17); Calcium 8.8 mg/dl (8.4-10.2); Carbon Dioxide 23 mmol/L (22.0-30.0); Chloride 112 mmol/L (98-107); Creatinine Clearance Estimated 235 mL/min (50-200); Estimated Glomerular Filt Rate 138 ml/min (>60); GFR (African American) 167 ML/MIN (>60); Glucose 98 mg/dl (74-100); Potassium 3.7 mmoL/L (3.5-5.1); Sodium 138 mmol/L (136-145)
--- NOTE | 2023-12-02 11:54 | EXP.ANES.CKL ---
[facility] Disclaimer: The information contained in this section may have been updated after the patient was seen, as this information can be updated by other users. Medical History Hypokalemia Diverticulitis Hypertension [place] ancestry Gestational hypertension Grand multiparity Surgical History History of dilation and curettage Family History No significant family history Colon cancer Diabetes Hyperthyroidism Heart attack Social History (Updated 12/02/23 @ 10:30 by Reanna Cuadra RN) Smoking Status: Never smoker alcohol intake: never substance use type: denies use current occupational status: unemployed Travel in the last 8 weeks: None adopted: No caregiver/support person: No foster care: No household members: spouse and children housing: house lives independently: Yes marital status: number of children: 10 harlan/yarsanism: [facility] [place] Anesthesia Checklist Patient Identification Patient Identification: Arm Band Structural Data Admitted From: Home Planned Operative Procedure/s: Epidural Blood Patch Consent for Planned Operative Procedure(s) Verified: Yes Verified Documents: Surgical Consent and History and Physical NPO Status Verified Time NPO: 00:00 Additional verifications Anesthesia Reactions: No Hx Blood Transfusions: Yes Blood Transfusion Reaction: No Airway Assessment Mallampati Score:: Class II C-Spine Mobility Assessed: Yes TMJ Mobility Assessed: Yes Dentition: Good Dentition Neurological Assessment Level of Consciousness: Awake, Alert and Appropriate Anesthesia Plan Anesthesia Risk discussed: Yes Anesthesia Plan: Verified ASA Class: II Anesthesia Type: Epidural (Blood Patch) Preoperative Comments Pre-Operative Comments: Pt is postop day 4 from Primary C/S under SAB. Pt initially had headache prior to discharge from the hospital that I assessed. She complained of headache that got better with supine positioning, but when I assessed her, she was sitting up in bed holding the baby with no c/o headache. Due to this, we decided to treat conservatively by encouraging fluids, caffeine, and PO medications. After discharge pt states that the headache became more severe and constant. She decided to come to the hospital today to be reassessed for post dural puncture headache. Today she c/o headache that gets better when laying flat, photophobia, tinnitus, and neck pain. With symptoms consistent of post dural puncture headache, pt elects to proceed with Epidural Blood Patch. Risks/benefits of procedure were explained with no guarantees given.
--- NOTE | 2023-12-02 12:23 | HMH.PROCNOTE ---
[facility] Procedure Note Date: 12/02/23 Time: 12:12 Procedure Note:: Pt presents to the OB department with c/o symptoms consistent with post dural puncture headache. Please see Anesthesia Checklist for more detailed preoperative assessment. Risks/benefits of Epidural Blood Patch explained and pt verbalized understanding. # 22 G IV started in Right AC by RN. Sitting position, sterile prep/drape with betadine, 1% Lidocaine skin wheal at L3/4, 18 G Tuohy needle inserted midline x 1. JOYCE with saline at 6 cm. 20 cc of autologous blood drawn from IV by RN and handed to me. Blood was injected slowly into the epidural space. After 20 cc injected, needle withdrawn and bandaid applied. Pt never experienced pressure in her back, or any other acute symptoms during injection. Pt states relief in pressure in her head/neck. She states that she still has a small headache but that it is significantly improved. Education provided to patient about post procedure instructions and she verbalized understanding. Pt is able to be discharged in one hour as long as vital signs are stable and no other acute symptoms present.
--- NOTE | 2023-12-02 13:39 | P.PN_ITS ---
Subjective *Date: 12/02/23 *Time: 16:00 Interval history: Ms Nicole Patel is a 38 yo [id number] who presents to L&D 4 days s/p PLTCS with bilateral salpingectomy and hemorrhage for severe, intractable headache. She admits to some relief when she lays flat in a darkened room. However, every time she gets up her headache is severe. She does not feel well. Medical Exam Vital signs and Labs for Last 24 Hours: Vital Signs Temp Pulse Resp BP Pulse Ox O2 Del Method 12/02/23 13:34 98.1 F 63 17 131/76 99 Room Air 12/02/23 13:10 98.3 F 72 16 143/79 H 99 Room Air 12/02/23 12:55 98.3 F 62 16 124/76 100 Room Air 12/02/23 12:41 98.5 F 52 L 16 116/72 100 Room Air 12/02/23 12:11 80 16 151/88 H 100 Room Air 12/02/23 12:05 97.9 F 61 16 134/74 97 Room Air 12/02/23 10:41 70 139/69 95 Room Air 12/02/23 10:23 97.9 F 66 16 144/72 H 97 Room Air Intake and Output 12/01/23 12/02/23 12/02/23 23:59 07:59 15:59 Other: Weight 214 lb 15.987 oz Patient Weight 12/02/23 23:59 Weight 214 lb 15.987 oz Laboratory Results - last 24 hr 12/02/23 10:14: WBC 4.2 L, RBC 2.99 L, Hgb 8.9 L, Hct 27.3 L, MCV 91.3, MCH 29.7, MCHC 32.5, RDW 16.6, Plt Count 204, MPV 11.1 H, Neut % (Auto) 64.6, Lymph % (Auto) 29.2, [place] % (Auto) 3.5, Eos % (Auto) 2.3, Baso % (Auto) 0.4, Neut # (Auto) 2.7, Lymph # (Auto) 1.2, [place] # (Auto) 0.2, Eos # (Auto) 0.1, Baso # (Auto) 0.0, Sodium 138, Potassium 3.7, Chloride 112 H, Carbon Dioxide 23, Anion Gap 6.7, BUN 5 L, Creatinine 0.50 L, Estimated Creat Clear 235, Estimated GFR 138, Est GFR ( Amer) 167, Glucose 98, Calcium 8.8, Total Bilirubin 0.3, AST 31, ALT 22, Alkaline Phosphatase 53, Total Protein 6.0 L D, Albumin 3.0 L, Globulin 3.0, Albumin/Globulin Ratio 1.0 L I & O for Labs for Last 24 Hours: Intake & Output 11/29/23 11/30/23 12/01/23 12/02/23 23:59 23:59 23:59 23:59 Weight 214 lb 15.987 oz Head: Present atraumatic and normocephalic ENT: Present mucous membranes moist Neck: Present normal inspection and full ROM Respiratory: Present CTA bilaterally and normal respiratory effort Cardiac: Present Reg Rate and Rhythm GI: Present soft and tenderness (appropriate postop tenderness to palpation); Absent distention Rectal (female): Present deferred (female): Present deferred Extremities: Present full ROM; Absent edema or calf tenderness Neuro: Present alert, awake and moves all extremities Assessment and Plan *Assessment and plan (1) Spinal headache complicating labor and delivery, delivered: Status: Acute Category: Medical Code(s): O74.5 - Spinal and epidural anesthesia-induced headache during labor and delivery Plan Labs within normal limits. Vital signs stable. BP within normal limits Anesthesia consult for headache. Evaluation was likely spinal headache. Blood patch was performed. Nicole immediately felt relief She was monitored after blood patch and was doing well. She was discharged home with instructions to follow-up in the office as scheduled or sooner if needed
--- NOTE | 2023-12-02 14:10 | PC.NURSE ---
Discharge education provided, questions encouraged and answered. IV removed from RAC. 2X2 With [address] in [address]. Pt. instructed to hold pressure if bleeding occurs.
--- NOTE | 2023-12-02 14:19 | PC.NURSE ---
Pt. left unit ambulatory per pt. request, accompanied by Spouse.
== END 2023-12-02 14:19 | disposition home or self-care (01) ==
LOC: OBOUT 09:50 → OB 09:51
PROVIDERS: PCP Nurse Practitioner Family; Visit Provider Obstetrics & Gynecology
DX: O74.5 Spinal and epidural anesthesia-induced headache during labor and delivery (principal)
CPT/HCPCS: 36415; 62273; 80053; 85025; G0463

== ENCOUNTER 2025-01-03 21:02 | Emergency (ER) | payer SELFPAY ==
[2025-01-03] VITALS (7 sets, daily range): BP systolic 110–153; BP diastolic 65–98; PULSE 99–122; RESP 17; TEMP 37.1; O2SAT 95–99; BMI 25.0
--- OUTSIDE RECORDS SUMMARY | 2025-01-03 21:18 | XMS_ITS | Continuity of Care Document ---
Author Organization [facility] Address [address] [place] [address] Assessment No assessment recorded. Plan of Treatment Reminders Order Date Submit Date Provider Last Modified By Organization Details Last Modified Time Details Appointments None recorded. Lab urinalysis, dipstick 2024 [email or web address] [facility], [address] [place] [address], [phone], 14:59:53 culture, urine 2024 [facility], [address] [place] [address], [place], [address], 14:59:57 Referral None recorded. Procedures None recorded. Surgeries None recorded. Imaging None recorded. Medication Orders ceftriaxone 1 gram solution for injection 2024 [email or web address] Not available 15:27:38 Bactrim DS 800 mg-160 mg tablet 2024 [facility], [address] [place] [address], [address], 17:19:21 potassium citrate ER 10 mEq (1,080 mg) tablet,exte nded release 2024 [facility], [address] [place] [address], [address], 17:19:21 Patient TargetsNo targets recorded. Patient InstructionsNo instructions recorded. Reason for Referral None Reported. Results Created Date Observation Date Name Description Value Unit Range Abnormal Flag Note LastModifiedBy Organization Detail LastModifiedTime 01/03/2001/02/2025 urina lysis , dipst ick Leukocytes Modera te Not Available [address], [address], 01/02/2025 14:51:34 01/03/2001/02/2025 urina lysis , dipst ick Nitrite positi ve Not Available [address], [address], 01/02/2025 14:51:34 01/03/2001/02/2025 urina lysis , dipst ick Urobilinogen .2 Not Available [address], [address], 01/02/2025 14:51:34 01/03/2001/02/2025 urina lysis , dipst ick Protein 100 Not Available [address], [address], 01/02/2025 14:51:34 01/03/2001/02/2025 urina lysis , dipst ick pH 6.5 Not Available [address], [address], 01/02/2025 14:51:34 01/03/2001/02/2025 urina lysis , dipst ick Blood Large Not Available [address], [address], 01/02/2025 14:51:34 01/03/2001/02/2025 urina lysis , dipst ick Specific Leander 1.025 Not Available [address], [address], 01/02/2025 14:51:34 01/03/2001/02/2025 urina lysis , dipst ick Ketone Negati ve Not Available [address], [address], 01/02/2025 14:51:34 01/03/2001/02/2025 urina lysis , dipst ick Bilirubin Negati ve Not Available [address], [address], 01/02/2025 14:51:34 01/03/2001/02/2025 urina lysis , dipst ick Glucose Negati ve Not Available [address], [address], 01/02/2025 14:51:34 01/03/2001/02/2025 urina lysis , dipst ick Appearance Clear Not Available [address], [address], 01/02/2025 14:51:34 01/03/2001/02/2025 urina lysis , dipst ick Color Brown Not Available [address], [address], 01/02/2025 14:51:34 Result Notes None recorded. Problems Name Problem SNOMED Code Status Onset Date Resolution Date Notes Provider Name and Address Organization Details Recorded Time Vitamin D deficien cy 42007887 Active 2018 Problem Code: E55; Problem Code Type: ICD-10; Not Available [facility] 21:04:35 Hypokale jeovany 24789971 Active 2018 Problem Code: E87.6; Problem Code Type: ICD-10; Not Available [facility] 21:04:35 Benign paroxysm al position al vertigo or nystagmu s [id number] Completed 201803/04/2019 Not Available [facility] 2 21:04:35 Hyperten sive disorder 06187667 Active 2018 Problem Code: I10; Problem Code Type: ICD-10; Not Available [facility] 2 21:04:36 General examinat ion of patient Active 2019 Not Available [facility] 2 21:04:36 Mass of neck 514899642 Active 2023 Marlen Woodson, RAQUEL [address] [place], [address] , [employer] 4 11:19:27 Urinary tract infectio us disease 97575116 Active 2024 Lisa Hill, KACY [address] [place], [address] , [employer] 5 14:59:44 Recurren t kidney stone 78013786045 41464 Active 2024 Lisa Hill, [employer] [address] [place], [address] , [employer] 5 15:15:23 Problem Notes None recorded. Procedures Surgical History Date Name Laterality Status Provider Name and Address Organization Details Recorded Time ligation of fallopian tube completed ALY JIMÉNEZ [employer] 07/11/2024 14:55:15 Imaging Results None recorded. Procedure Notes None recorded. Medical Equipment None Reported. Allergies No known drug allergies Medications Name Sig Start Date Stop Date Status Note LastModified by Organization Details LastModified Time potassium chloride ER 10 mEq capsule,ext ended release TAKE ONE CAPSULE BY MOUTH EVERY DAY 04/15 completed Not Available Not Available Not Available Pyridium 200 mg tablet Take 1 tablet 3 times a day by oral route for 2 days. 02/08 completed Not Available Not Available Not Available metronidazo le 500 mg tablet TAKE ONE TABLET BY MOUTH TWICE DAILY FOR 5 DAYS 02/14 completed Not Available Not Available Not Available ciprofloxac in 500 mg tablet TAKE 1/2 TABLET BY MOUTH EVERY TWELVE HOURS 02/14 completed Not Available Not Available Not Available ceftriaxone 1 gram solution for injection Take 1 g by injection route for 1 day. 2024 active Not Available Not Available Not Avai lable hydromorpho ne 2 mg tablet TAKE ONE TABLET BY MOUTH EVERY 6 HOURS MAY CAUSE DROWSINES S 01/16 completed Not Available Not Available Not Available potassium citrate ER 10 mEq (1,080 mg) tablet,exte nded release Take 1 tablet every day by oral route. 2024 active Not Available Not Available Not Avai lable cephalexin 500 mg capsule Take 1 capsule every 6 hours by oral route for 10 days. 02/14 completed Not Available Not Available Not Available hydroxyzine HCl 25 mg tablet 1 po bid 09/04 completed Not Available Not Available Not Available hydrochloro thiazide 25 mg tablet TAKE ONE TABLET BY MOUTH EVERY DAY active Not Available Not Available No t Available ergocalcife rol (vitamin D2) 1,250 mcg (50,000 unit) capsule take 1 capsule (50,000 unit) by oral route once weekly 12/15 completed Not Available Not Available Not Available cefuroxime axetil 500 mg tablet TAKE 1 TABLET EVERY 12 HOURS FOR 5 DAYS 04/19 completed Not Available Not Available Not Available levofloxaci n 750 mg tablet Take 1 tablet every day by oral route. 02/08 completed Not Available Not Available Not Available methimazole 10 mg tablet TAKE ONE TABLET BY MOUTH THREE TIMES DAILY FOR THYROID 07/11 completed Not Available Not Available Not Available cefdinir 300 mg capsule TAKE 1 CAPSULE EVERY 12 HOURS FOR 14 DAYS 02/08 completed Not Available Not Available Not Available Bactrim DS 800 mg-160 mg tablet Take 1 tablet every 12 hours by oral route for 10 days, for uti. 2024 active Not Available Not Available Not Avai lable Poly-Iron 150 mg iron capsule TAKE 1 CAPSULE 1 TIME EACH DAY 07/11 completed Not Available Not Available Not Available nitrofurant oin monohydrate /macrocryst als 100 mg capsule TAKE 1 CAPSULE 2 TIMES EACH DAY WITH FOOD FOR 14 DAYS 02/14 completed Not Available Not Available Not Available cholecalcif stefan (vitamin D3) 50 mcg (2,000 unit) tablet TAKE ONE TABLET BY MOUTH EVERY DAY active Not Available Not Available No t Available 28 mg iron-800 mcg tablet Take one by oral route daily 07/11 completed Not Available Not Available Not Available cholecalcif stefan (vitamin D3) 1,250 mcg (50,000 unit) tablet Take one tablet weekly 04/24 completed Not Available Not Available Not Available ergocalcife rol (vitamin D2) 50 mcg (2,000 unit) capsule Take 1 capsule every day by oral route. 07/11 completed Not Available Not Available Not Available Vitals Date Recorded Body height Body mass index (BMI) Body weight Body temperature Heart rate Oxygen saturation Oxygen saturation in Arterial blood by Pulse oximetry Systolic And Diastolic Provider Name and Address Organization Details Last Updated DateTime 5 172.72 cm 34.1 kg/m2 860547. 13 g 98.8 [degF] 82 /min 98 % 98 % 112/68 mm[Hg] ALY JIMÉNEZ [employer] 14:51:00 Social History Question Answer Notes LastModified by Organizat ion Details LastModified Time Tobacco Smoking Status Never Smoker Reanna wray [employer] 10/15/2022 15:47:32 Do You Have An Advance Directive? No Information not available 12/15/2021 Is Your Home Air Conditioned? No Information not available 12/15/2021 Do You Wear A Helmet When Biking? No Information not available 12/15/2021 Are You Blind Or Do You Have Difficulty Seeing? No Information not available 12/15/2021 Are You A Caregiver? Yes Information not available 12/15/2021 What Type Of Money Order Clerk Do You Use? None Information not available 12/15/2021 In The 14 Days Before Symptom Onset, Have You Had Close Contact With A Laboratory-confir med COVID-19 While That Case Was Ill? No Information not available 12/15/2021 In The 14 Days Before Symptom Onset, Have You Had Close Contact With A Person Who Is Under Investigation For COVID-19 While That Person Was Ill? No Information not available 12/15/2021 Have You Been To An Area Known To Be High Risk For COVID-19? No Information not available 12/15/2021 Are You Deaf Or Do You Have Serious Difficulty Hearing? No Information not available 12/15/2021 What Type Of Diet Are You Following? REGULAR Information not available 02/14/2023 Have There Been Any Changes To Your Family Or Social Situation? Yes Information no t available 12/15/2021 Are There Any Guns Present In Your Home? No Information not available 12/15/2021 Where Do You Live? [facility] Information not available 12/15/2021 Do You Have A Medical Power Of Attractions Associate? No Information not available 12/15/2021 What Was The Date Of Your Most Recent Tobacco Screening? 01/02/2025 Information not available 01/02/2025 Do You Have Any Pets? Yes Information not available 12/15/2021 What Is Your Relationship Status? Information not available 12/15/2021 Do You Use Your Seat Belt Or Car Seat Routinely? No Information not available 12/15/2021 Are You Sexually Active? Yes Information not available 12/15/2021 Do You Have Smoke And Carbon Monoxide Detectors In Your Home? No Information not available 12/15/2021 Are You Passively Exposed To Smoke? No Information no t available 12/15/2021 Are There Any Smokers In Your House? No Information not available 12/15/2021 Do You Participate In Social Media? No Information not available 12/15/2021 Do You Use Sunscreen Routinely? No Information not available 12/15/2021 Has Tobacco Cessation Counseling Been Provided? No [email or web address] Information not available 12/30/2023 Have You Recently Traveled Abroad? No Information not available 12/15/2021 Do You Have Difficulty Walking Or Climbing Stairs? No Information not available 12/15/2021 Are You Currently In School? No Information not available 12/15/2021 Do You Have Any Dietary Restrictions? No Information not available 02/14/2023 Sex: Female Functional Status Question Answer Note LastModified by Organizat ion Details LastModified Time Do you use any illicit or recreational drugs? No Information not available 12/15/2021 Do you or have you ever used any other forms of tobacco or nicotine? No Information not available 02/14/2023 What is your level of alcohol consumption? None Information not available 12/15/2021 Are you currently employed? No Information not available 12/15/2021 Do you have transportation difficulties? No Information not available 12/15/2021 Are you able to walk independently without assistance or assistive devices? [employer] Information not available 12/15/2021 Do you have difficulty doing errands alone? No Information not available 12/15/2021 Are you able to care for yourself independently? Yes Information not available 12/15/2021 Do you have difficulty dressing, bathing, grooming, or toileting? No Information not available 12/15/2021 Mental Status Question Answer Note LastModified by Organizat ion Details LastModified Time Do you feel stressed (tense, restless, nervous, or anxious, or unable to sleep at night)? [id number] [facility] Information not available 12/15/2021 Do you have difficulty concentrating, remembering or making decisions? No Information no t available 12/15/2021 Family History Relationship Description Onset Age of this Age Resolved Age Notes LastModified by Organization Details LastModified Time Unspecified Relation Family history of diabetes mellitus type 2 Relati ve: ''; [email or web address] Not available 12/08/2021 23:02:05 Notes:*Procedure Description : Documented family medical history in mother*Relative: Mother *Procedure Description: Documented family medical history in father*Relative: Father *Procedure Description: Documented family medical history in brother*Relative: Brother Medical History Condition Response Kidney Stones Y Hospitalizations N Emergency room visit since last appointm ent. N Anemia Y Hypertension Y Gynecological History Statement/Question Response Date of Last Pap Smear Most Recent Mammogram Obstetrics History GPAL:G 0 P 0 0 0 0 Past Encounters Encounter ID Performer Location Encounter Start Date Encounter Closed Date Diagnosis/Indication Diagnosis SNOMED-CT Code Diagnosis ICD10 Code Diagnosis IMO Codes Diagnosis Note [id number] Lisa Hill APRN [address] [address] 01/02/2025 14:30:23 01/02/2025 15:24:52 Urinary tract infectious disease 08497820 N39.0 [id number] Nicole, a female with history of kidney stones and recurrent UTIs, presented with right flank pain, pelvic pressure, dysuria, fever, and chills. Urinalysis showed blood, bacteria, and nitrites. Diagnosed with UTI likely secondary to resolved kidney stone. Received Rocephin injection in office and was prescribed Bactrim for 10 days. Urine culture sent. Plan includes resuming potassium citrate for stone prevention , continuing lemon water, and monitoring for symptom improvemen t within 24-36 hours. Recurrent kidney stone [id number] 523023 N20.0 Restart Potassium citrate. Health Concerns Section Related Observation LastModified by Organization Detai ls LastModified Time None Recorded Concern Status LastModified by Organization Details LastModified Time None Recorded Payers Encounter Date Sequence Insurance Name Policy Number Policy Leach Covered Member ID Leach Member ID Guarantor Name 01/02/2025 1 *SELF PAY* Ron Patel Notes Date Note Type Note Provider Name and Address Organization Details Recorded Time 01/02/2025 text/html ROS as noted in the HPI Chief ComplaintRight flank pain over kidney area starting Tuesday afternoon, pelvic pressure in vaginal area, burning with urination, fever and chills, generalized body achesHistory of Present IllnessNicole Patel presents with symptoms consistent with a urinary tract infection following what appears to be a kidney stone episode. She initially developed right flank pain over the kidney area on Tuesday afternoon, which she initially thought might be a kidney stone but noted it didn't feel like her typical stone pain. She took Tylenol for pain relief and the flank pain resolved. However, she subsequently developed pressure in her vaginal area along with burning during urination. She has been experiencing fever and chills that have been worsening, requiring her to take Tylenol three times daily due to generalized aching. The right flank area remains tender but without significant pain. She reports she has not been adherent to her potassium citrate for stone prevention and she acknowledges a couple of days of decreased fluid intake while traveling. She recently finished her menstrual period and has had a tubal ligation. She denies abdominal pain, vomiting, diarrhea, or constipation. Lisa Hill APRN [address] [facility], [place], [address], [facility] [employer] 01/02/2025 15:38:11 OBGyn Episode No OBEpisode recorded.
--- OUTSIDE RECORDS SUMMARY | 2025-01-03 21:18 | XMS_ITS | Data Portability ---
Author Organization [place] - [facility] Address [address] [place] [address] Assessment Encounter Date Assessment Date Assessment LastModified by Organization Details LastModified Time 12/30/2023 12/30/2023 Labs per plan. To ER with any difficulty breathing. Ultrasound as ordered, scheduled for Tuesday, patient aware of appointment. Further plan with results. [email or web address] Not available 12/30/2023 12:52:46 Plan of Treatment Reminders Order Date Submit Date Provider Last Modified By Organization Details Last Modified Time Details Appointments None recorded. Lab urinalysis, dipstick 2024 025 [email or web address] [facility], [address] [place] [address], [place], [address], 14:59:53 culture, urine 2024 025 KYRA [facility], [address] [place] [address], [address], 5 14:59:57 prolactin, serum 2024 025 KYRA [facility]), [address] [place] [address], [address], 5 04:09:29 lh + FSH, serum 2024 025 FORDYCE [facility], [address] [place] [address], [address], 5 04:09:29 estradiol, serum 2024 025 [facility] [address] [place], [address], 5 04:09:30 CBC w/ auto diff 2024 025 [facility] ([place] [address] [place], [address], 5 04:09:28 progesteron e, serum 2024 025 [facility] [address] [place], [address], 5 04:09:30 TSH + free T4, serum 2024 025 [facility] [address] [place], [address], 5 04:09:28 CMP, serum or plasma 2024 025 [facility] [address] [place], [address], 5 04:09:28 iron + TIBC + ferritin, serum 2024 025 [facility] [address] [place], [address], 5 04:09:27 TSH + free T4, serum 2023 024 [facility]), [address] [place], [address], 4 16:10:54 thyroid peroxidase (tpo) Ab, serum 2023 024 [facility] [address] [place], [address], 4 16:10:58 T3, free, serum or plasma 2023 024 [facility], [address] [place], [address], 4 16:10:59 thyroglobul in Ab, serum 2023 024 [facility] [address] [place], [address], 4 16:10:58 CMP, serum or plasma 2023 024 [facility] [address] [place], [address], 4 16:10:56 CBC w/ auto diff 2023 024 [facility] [address] [place], [address], 4 16:10:55 iron + total iron-bindin g capacity (TIBC), serum 2023 024 [facility]), [address] [place], [address], 4 16:10:56 vitamin B12 + folate, serum or blood 2023 024 [facility] [address] [place], [address], 4 16:10:57 TSH + free T4, serum 2023 024 [facility]), [address] [place], [address], 4 05:07:13 vitamin D, 25-hydroxy, total, serum 2023 024 [facility], [address], [place], [address], 4 07:38:53 magnesium, serum or plasma 2023 024 [facility], [address], [place], [address], 4 07:38:51 CMP, serum or plasma 2023 024 [facility], [address], [place], [address], 4 07:38:51 TSH, serum or plasma 2023 024 FORDYCE [facility], [address], [place], [address], 4 07:38:52 CBC w/ auto diff 2023 024 FORDYCE [facility], [address], [place], [address], 4 07:38:52 iron + TIBC + ferritin, serum 2023 024 FORDYCE [facility], [address], [place], [address], 4 07:38:51 Referral None recorded. Procedures None recorded. Surgeries None recorded. Imaging US, neck, soft tissue - mass / possible thyroid enlargement 2023 [facility], [address] [place] [address], [place], [address], 4 16:30:22 US, thyroid 2023 024 [facility], [address] [place] [address], [place], [address], 4 16:30:00 Medication Orders ceftriaxone 1 gram solution for injection 2024 025 [email or web address] Not available 15:27:38 Bactrim DS 800 mg-160 mg tablet [address] [facility], [address] [place] [address], [address], 17:19:21 potassium citrate ER 10 mEq (1,080 mg) tablet,exte nded release [address] [facility], [address] [place] [address], [address], 17:19:21 potassium citrate ER 10 mEq (1,080 mg) tablet,exte nded release [address] [facility], [address] [place] [address], [address], 13:36:30 Patient TargetsNo targets recorded. Patient InstructionsNo instructions recorded. Reason for Referral None Reported. Results Created Date Observation Date Name Description Value Unit Range Abnormal Flag Note LastModifiedBy Organization Detail LastModifiedTime 10/14/19 24 10/15/2023 IRON, TIBC AND RHIANNA TIN PANEL iron, total 58 mcg/d L 40-190 normal Not Available 1-800-[facility] [address] [place], [address], 10/15/2023 07:38:50 10/14/19 24 10/15/2023 IRON, TIBC AND RHIANNA TIN PANEL iron binding capacity 519 mcg/d L_(ca lc) 250-45 0 high Not Available [facility] [address] [facility] [place], [address], 10/15/2023 07:38:50 10/14/19 24 10/15/2023 IRON, TIBC AND RHIANNA TIN PANEL % saturation 11 %_(ca lc) 16-45 low Not Available [facility] [address] [place], [address], 10/15/2023 07:38:50 10/14/19 24 10/15/2023 IRON, TIBC AND RHIANNA TIN PANEL ferritin 7 NG/mL 16-154 low Not Available [facility] [address] [place], [address], 10/15/2023 07:38:50 10/14/19 24 10/15/2023 MAGNE SIUM magnesium 1.8 mg/dL 1.5-2. 5 normal Not Available [facility] [address] [place], [address], 10/15/2023 07:38:51 10/14/19 24 10/15/2023 COMPR EHENS STEPH METAB OLIC PANEL glucose 121 mg/dL 65-99 high Fasti ng refer ence inter trinh For someo ne witho ut known diabe seth, a gluco se value betwe en 100 and 125 mg/dL is consi stent with predi abete s and shoul d be confi rmed with a follo w-up test. Not Available [facility] [address] [place], [address], 10/15/2023 07:38:51 10/14/19 24 10/15/2023 COMPR EHENS STEPH METAB OLIC PANEL urea nitrogen (BUN) 11 mg/dL 7-25 normal Not Available 1-800-[facility] [address] [place], [address], 10/15/2023 07:38:51 10/14/19 24 10/15/2023 COMPR EHENS STEPH METAB OLIC PANEL creatinine 0.47 mg/dL 0.50-0 .97 low Not Available [facility] [address] [place], [address], 10/15/2023 07:38:51 10/14/19 24 10/15/2023 COMPR EHENS STEPH METAB OLIC PANEL eGFR 125 mL/mi n/1.7 3m2 > or = 60 normal Not Available [facility] [address] [place], [address], 10/15/2023 07:38:51 10/14/19 24 10/15/2023 COMPR EHENS STEPH METAB OLIC PANEL BUN/creatini ne ratio 23 (calc ) 6-22 high Not Available [facility] [address] [facility] [place], [address], 10/15/2023 07:38:51 10/14/19 24 10/15/2023 COMPR EHENS STEPH METAB OLIC PANEL sodium 137 mmol/ L 135-14 6 normal Not Available [facility] [address] [place], [address], 10/15/2023 07:38:51 10/14/19 24 10/15/2023 COMPR EHENS STEPH METAB OLIC PANEL potassium 3.3 mmol/ L 3.5-5. 3 low Not Available [facility] [address] [place], [address], 10/15/2023 07:38:51 10/14/19 24 10/15/2023 COMPR EHENS STEPH METAB OLIC PANEL chloride 104 mmol/ L 98-110 normal Not Available [facility] [address] [place], [address], 10/15/2023 07:38:51 10/14/19 24 10/15/2023 COMPR EHENS STEPH METAB OLIC PANEL carbon dioxide 22 mmol/ L 20-32 normal Not Available [facility] [address] [place], [address], 10/15/2023 07:38:51 10/14/19 24 10/15/2023 COMPR EHENS STEPH METAB OLIC PANEL calcium 9.1 mg/dL 8.6-10 .2 normal Not Available [facility] [address] [place], [address], 10/15/2023 07:38:51 10/14/19 24 10/15/2023 COMPR EHENS STEPH METAB OLIC PANEL protein, total 6.6 g/dL 6.1-8. 1 normal Not Available [facility] [address] [facility] [place], [address], 10/15/2023 07:38:51 10/14/19 24 10/15/2023 COMPR EHENS STEPH METAB OLIC PANEL albumin 3.7 g/dL 3.6-5. 1 normal Not Available [facility] [address] [facility] [place], [address], 10/15/2023 07:38:51 10/14/19 24 10/15/2023 COMPR EHENS STEPH METAB OLIC PANEL globulin 2.9 g/dL_ (calc ) 1.9-3. 7 normal Not Available [facility] [address] [facility] [place], [address], 10/15/2023 07:38:51 10/14/19 24 10/15/2023 COMPR EHENS STEPH METAB OLIC PANEL albumin/glob ulin ratio 1.3 (calc ) 1.0-2. 5 normal Not Available [facility] [address] [facility] [place], [address], 10/15/2023 07:38:51 10/14/19 24 10/15/2023 COMPR EHENS STEPH METAB OLIC PANEL bilirubin, total 0.3 mg/dL 0.2-1. 2 normal Not Available [facility] [address] [facility] [place], [address], 10/15/2023 07:38:51 10/14/19 24 10/15/2023 COMPR EHENS STEPH METAB OLIC PANEL alkaline phosphatase 47 U/L 31-125 normal Not Available [facility] [address] [facility] [place], [address], 10/15/2023 07:38:51 10/14/19 24 10/15/2023 COMPR EHENS STEPH METAB OLIC PANEL AST 13 U/L 10-30 normal Not Available [facility] [address] [place], [address], 10/15/2023 07:38:51 10/14/19 24 10/15/2023 COMPR EHENS STEPH METAB OLIC PANEL ALT 9 U/L 6-29 normal Not Available [facility] [address], [place], [address], 10/15/2023 07:38:51 10/14/19 24 10/15/2023 CBC (INCL UDES DIFF/ PLT) white blood cell count 6.5 thous and/u L 3.8-10 .8 normal Not Available [facility] [address] [facility] [place], [address], 10/15/2023 07:38:52 10/14/19 24 10/15/2023 CBC (INCL UDES DIFF/ PLT) red blood cell count 3.76 reuben on/uL 3.80-5 .10 low Not Available [facility] [address] [facility] [place], [address], 10/15/2023 07:38:52 10/14/19 24 10/15/2023 CBC (INCL UDES DIFF/ PLT) hemoglobin 10.9 g/dL 11.7-1 5.5 low Not Available [facility] [address] [facility] [place], [address], 10/15/2023 07:38:52 10/14/1910/15/2023 CBC (INCL UDES DIFF/ PLT) hematocrit 33.3 % 35.0-4 5.0 low Not Available [facility] [address] [facility] [place], [address], 10/15/2023 07:38:52 10/14/19 24 10/15/2023 CBC (INCL UDES DIFF/ PLT) MCV 88.6 fL 80.0-1 00.0 normal Not Available [facility] [address] [place], [address], 10/15/2023 07:38:52 10/14/19 24 10/15/2023 CBC (INCL UDES DIFF/ PLT) MCH 29.0 pg 27.0-3 3.0 normal Not Available [facility] [address] [place], [address], 10/15/2023 07:38:52 10/14/1910/15/2023 CBC (INCL UDES DIFF/ PLT) MCHC 32.7 g/dL 32.0-3 6.0 normal Not Available [facility] [address] [place], [address], 10/15/2023 07:38:52 10/14/19 24 10/15/2023 CBC (INCL UDES DIFF/ PLT) RDW 14.0 % 11.0-1 5.0 normal Not Available [facility] [address] [place], [address], 10/15/2023 07:38:52 10/14/19 24 10/15/2023 CBC (INCL UDES DIFF/ PLT) platelet count 226 thous and/u L 140-40 0 normal Not Available [facility] [address] [place], [address], 10/15/2023 07:38:52 10/14/19 24 10/15/2023 CBC (INCL UDES DIFF/ PLT) MPV 11.4 fL 7.5-12 .5 normal Not Available [facility] [address] [place], [address], 10/15/2023 07:38:52 10/14/19 24 10/15/2023 CBC (INCL UDES DIFF/ PLT) absolute neutrophils 4160 cells /uL 1500-7 800 normal Not Available [facility] [address], [place], [address], 10/15/2023 07:38:52 10/14/19 24 10/15/2023 CBC (INCL UDES DIFF/ PLT) absolute lymphocytes 1801 cells /uL 850-39 00 normal Not Available [facility] [address], [place], [address], 10/15/2023 07:38:52 10/14/19 24 10/15/2023 CBC (INCL UDES DIFF/ PLT) absolute monocytes 462 cells /uL 200-95 0 normal Not Available [facility] [address], [place], [address], 10/15/2023 07:38:52 10/14/19 24 10/15/2023 CBC (INCL UDES DIFF/ PLT) absolute eosinophils 59 cells /uL 15-500 normal Not Available [facility] [address], [place], [address], 10/15/2023 07:38:52 10/14/19 24 10/15/2023 CBC (INCL UDES DIFF/ PLT) absolute basophils 20 cells /uL 0-200 normal Not Available [facility] [address], [place], [address], 10/15/2023 07:38:52 10/14/19 24 10/15/2023 CBC (INCL UDES DIFF/ PLT) neutrophils 64 % normal Not Available [facility] [address], [place], [address], 10/15/2023 07:38:52 10/14/19 24 10/15/2023 CBC (INCL UDES DIFF/ PLT) lymphocytes 27.7 % normal Not Available [facility] [address], [place], [address], 10/15/2023 07:38:52 10/14/19 24 10/15/2023 CBC (INCL UDES DIFF/ PLT) monocytes 7.1 % normal Not Available [facility] [address] [place], [address], 10/15/2023 07:38:52 10/14/19 24 10/15/2023 CBC (INCL UDES DIFF/ PLT) eosinophils 0.9 % normal Not Available [facility] [address] [place], [address], 10/15/2023 07:38:52 10/14/19 24 10/15/2023 CBC (INCL UDES DIFF/ PLT) basophils 0.3 % normal Not Available [facility] [address] [place], [address], 10/15/2023 07:38:52 10/14/19 24 10/15/2023 TSH W/REF CHRISTINA TO FT4 TSH w/reflex to FT4 1.14 mIU/L normal Refer ence Range > or = 20 Years 0.40- 4.50 Pregn venancio Range s First trime ster 0.26- 2.66 Secon d trime ster 0.55- 2.73 Third trime ster 0.43- 2.91 Not Available [facility] [address] [place], [address], 10/15/2023 07:38:52 10/14/19 24 10/15/2023 VITAM IN D,25- OH,TO KENYON,I A vitamin D,25-oh,tota l,ia 34 NG/mL 30-100 normal Vitam in D Statu s 25-OH Vitam in D: Defic iency : <20 ng/mL Insuf ficie ncy: 20 - 29 ng/mL Optim al: > or = 30 ng/mL For 25-OH Vitam in D testi ng on patie nts on D2-loja pplem entat ion and patie nts for whom quant itati on of D2 and D3 fract ions is requi red, the [facility] e[facility](TM ) 25-OH VIT D, (D2,D 3), LC/MS /MS is sy nguyen d: order code 41954 (jordon ents >2yrs ). See Note 1 Note 1 For addit ional infor ester li refer to http: //bernardino Thurston stDia gnost ics.c om/fa q/FAQ 199 (This link is being provi ded for infor drew rojas/ michael coleman purpo ses only. ) Not Available [facility] [address] [facility], [place], [address], 10/15/2023 07:38:53 12/30/1912/31/2023 TSH+F REE T4 TSH 0.008 uIU/m L 0.450- 4.500 below low normal Not Available [facility] ([facility]) [address] [place], [address], 12/31/2023 05:07:13 12/30/19 24 12/31/2023 TSH+F REE T4 T4,free(dire ct) >7.77 NG/dL 0.82-1 .77 above high normal Herrera ified by repea t luís sis Not Available [facility] ([facility]) [address] [place], [address], 12/31/2023 05:07:13 01/18/20 24 01/19/2024 TSH+F REE T4 TSH 0.006 uIU/m L 0.450- 4.500 below low normal Not Available [facility] ([facility]) [address] [place], [address], 01/19/2024 16:10:54 01/18/2001/19/2024 TSH+F REE T4 T4,free(dire ct) 5.89 NG/dL 0.82-1 .77 above high normal Not Available [facility] ([facility]) [address] [place], [address], 01/19/2024 16:10:54 01/18/20 24 01/19/2024 CBC WITH DIFFE RENTI AL/PL ATELE T WBC 3.7 x10e3 /uL 3.4-10 .8 normal Not Available [facility] ([facility]) [address] [place], [address], 01/19/2024 16:10:55 01/18/2001/19/2024 CBC WITH DIFFE RENTI AL/PL ATELE T RBC 4.10 x10e6 /uL 3.77-5 .28 normal Not Available [facility] ([facility]) [address] [place], [address], 01/19/2024 16:10:55 01/18/20 24 01/19/2024 CBC WITH DIFFE RENTI AL/PL ATELE T hemoglobin 11.0 g/dL 11.1-1 5.9 below low normal Not Available [facility] ([facility]) [address] [place], [address], 01/19/2024 16:10:55 01/18/20 24 01/19/2024 CBC WITH DIFFE RENTI AL/PL ATELE T hematocrit 34.7 % 34.0-4 6.6 normal Not Available [facility] ([facility]) [address] [place], [address], 01/19/2024 16:10:55 01/18/20 24 01/19/2024 CBC WITH DIFFE RENTI AL/PL ATELE T MCV 85 fL 79-97 normal Not Available [facility] ([facility]) [address] [place], [address], 01/19/2024 16:10:55 01/18/20 24 01/19/2024 CBC WITH DIFFE RENTI AL/PL ATELE T MCH 26.8 pg 26.6-3 3.0 normal Not Available [facility] ([facility]) [address] [facility] [place], [address], 01/19/2024 16:10:55 01/18/20 24 01/19/2024 CBC WITH DIFFE RENTI AL/PL ATELE T MCHC 31.7 g/dL 31.5-3 5.7 normal Not Available [facility] ([facility]) [address] [facility], [place], [address], 01/19/2024 16:10:55 01/18/20 24 01/19/2024 CBC WITH DIFFE RENTI AL/PL ATELE T RDW 13.2 % 11.7-1 5.4 Not Available [facility] ([facility]) [address] [facility], [place], [address], 01/19/2024 16:10:55 01/18/20 24 01/19/2024 CBC WITH DIFFE RENTI AL/PL ATELE T platelets 248 x10e3 /uL 150-45 0 normal Not Available [facility] ([facility]) [address] [facility], [place], [address], 01/19/2024 16:10:55 01/18/2001/19/2024 CBC WITH DIFFE RENTI AL/PL ATELE T neutrophils 36 % not estab. normal Not Available [facility] ([facility]) [address] [place], [address], 01/19/2024 16:10:55 01/18/20 24 01/19/2024 CBC WITH DIFFE RENTI AL/PL ATELE T lymphs 50 % not estab. normal Not Available [facility] ([facility]) [address] [place], [address], 01/19/2024 16:10:55 01/18/20 24 01/19/2024 CBC WITH DIFFE RENTI AL/PL ATELE T monocytes 12 % not estab. normal Not Available [facility] ([facility]) [address] [facility], [place], [address], 01/19/2024 16:10:55 01/18/20 24 01/19/2024 CBC WITH DIFFE RENTI AL/PL ATELE T eos 2 % not estab. normal Not Available [facility] ([facility]) [address] [facility], [place], [address], 01/19/2024 16:10:55 01/18/20 24 01/19/2024 CBC WITH DIFFE RENTI AL/PL ATELE T basos 0 % not estab. normal Not Available [facility] ([facility]) [address] [place], [address], 01/19/2024 16:10:55 01/18/20 24 01/19/2024 CBC WITH DIFFE RENTI AL/PL ATELE T immature cells RETIREMENT SPECIALIST Not Available [facility] ([facility]) [address] [place], [address], 01/19/2024 16:10:55 01/18/20 24 01/19/2024 CBC WITH DIFFE RENTI AL/PL ATELE T neutrophils (absolute) 1.3 x10e3 /uL 1.4-7. 0 below low normal Not Available [facility] ([facility]) [address] [place], [address], 01/19/2024 16:10:55 01/18/20 24 01/19/2024 CBC WITH DIFFE RENTI AL/PL ATELE T lymphs (absolute) 1.8 x10e3 /uL 0.7-3. 1 normal Not Available [facility] ([facility]) [address] [place], [address], 01/19/2024 16:10:55 01/18/20 24 01/19/2024 CBC WITH DIFFE RENTI AL/PL ATELE T monocytes(ab solute) 0.5 x10e3 /uL 0.1-0. 9 normal Not Available [facility] ([facility]) [address] [place], [address], 01/19/2024 16:10:55 01/18/20 24 01/19/2024 CBC WITH DIFFE RENTI AL/PL ATELE T eos (absolute) 0.1 x10e3 /uL 0.0-0. 4 normal Not Available [facility] ([facility]) [address] [facility], [place], [address], 01/19/2024 16:10:55 01/18/20 24 01/19/2024 CBC WITH DIFFE RENTI AL/PL ATELE T baso (absolute) 0.0 x10e3 /uL 0.0-0. 2 normal Not Available [facility] ([facility]) [address] [facility], [place], [address], 01/19/2024 16:10:55 01/18/20 24 01/19/2024 CBC WITH DIFFE RENTI AL/PL ATELE T immature granulocytes 0 % not estab. Not Available [facility] ([facility]) [address] [facility], [place], [address], 01/19/2024 16:10:55 01/18/20 24 01/19/2024 CBC WITH DIFFE RENTI AL/PL ATELE T immature grans (abs) 0.0 x10e3 /uL 0.0-0. 1 Not Available [facility] ([facility]) [address] [facility], [place], [address], 01/19/2024 16:10:55 01/18/20 24 01/19/2024 CBC WITH DIFFE RENTI AL/PL ATELE T NRBC RETIREMENT SPECIALIST Not Available [facility] ([facility]) [address] [facility], [place], [address], 01/19/2024 16:10:55 01/18/20 24 01/19/2024 CBC WITH DIFFE RENTI AL/PL ATELE T hematology comments: RETIREMENT SPECIALIST Not Available [facility] ([facility]) [address] [facility], [place], [address], 01/19/2024 16:10:55 01/18/20 24 01/19/2024 COMP. METAB OLIC PANEL (14) glucose 110 mg/dL 70-99 above high normal Not Available [facility] ([facility]) [address] [place], [address], 01/19/2024 16:10:56 01/18/20 24 01/19/2024 COMP. METAB OLIC PANEL (14) BUN 15 mg/dL 6-20 normal Not Available [facility] ([facility]) [address] [place], [address], 01/19/2024 16:10:56 01/18/2001/19/2024 COMP. METAB OLIC PANEL (14) creatinine 0.51 mg/dL 0.57-1 .00 below low normal Not Available [facility] ([facility]) [address] [place], [address], 01/19/2024 16:10:56 01/18/20 24 01/19/2024 COMP. METAB OLIC PANEL (14) eGFR 122 mL/mi n/1.7 3 >59 normal Not Available [facility] ([facility]) [address] [place], [address], 01/19/2024 16:10:56 01/18/20 24 01/19/2024 COMP. METAB OLIC PANEL (14) BUN/creatini ne ratio 29 9-23 above high normal Not Available [facility] ([facility]) [address] [place], [address], 01/19/2024 16:10:56 01/18/20 24 01/19/2024 COMP. METAB OLIC PANEL (14) sodium 140 mmol/ L 134-14 4 normal Not Available [facility] ([facility]) [address] [place], [address], 01/19/2024 16:10:56 01/18/20 24 01/19/2024 COMP. METAB OLIC PANEL (14) potassium 4.5 mmol/ L 3.5-5. 2 normal Not Available [facility] ([facility]) [address] [place], [address], 01/19/2024 16:10:56 01/18/20 24 01/19/2024 COMP. METAB OLIC PANEL (14) chloride 101 mmol/ L 96-106 normal Not Available [facility] ([facility]) [address] [place], [address], 01/19/2024 16:10:56 01/18/20 24 01/19/2024 COMP. METAB OLIC PANEL (14) carbon dioxide, total 26 mmol/ L 20-29 normal Not Available [facility] ([facility]) [address] [facility], [place], [address], 01/19/2024 16:10:56 01/18/20 24 01/19/2024 COMP. METAB OLIC PANEL (14) calcium 10.1 mg/dL 8.7-10 .2 normal Not Available [facility] ([facility]) [address] [place], [address], 01/19/2024 16:10:56 01/18/20 24 01/19/2024 COMP. METAB OLIC PANEL (14) protein, total 6.4 g/dL 6.0-8. 5 normal Not Available [facility] ([facility]) [address] [place], [address], 01/19/2024 16:10:56 01/18/20 24 01/19/2024 COMP. METAB OLIC PANEL (14) albumin 4.1 g/dL 3.9-4. 9 normal Not Available [facility] ([facility]) [address] [place], [address], 01/19/2024 16:10:56 01/18/20 24 01/19/2024 COMP. METAB OLIC PANEL (14) globulin, total 2.3 g/dL 1.5-4. 5 Not Available [facility] ([facility]) [address] [facility] [place], [address], 01/19/2024 16:10:56 01/18/20 24 01/19/2024 COMP. METAB OLIC PANEL (14) bilirubin, total <0.2 mg/dL 0.0-1. 2 Not Available [facility] Lab) [address] [facility] [place], [address], 01/19/2024 16:10:56 01/18/20 24 01/19/2024 COMP. METAB OLIC PANEL (14) alkaline phosphatase 45 IU/L 44-121 normal Not Available [facility] ([facility]) [address] [facility], [place], [address], 01/19/2024 16:10:56 01/18/20 24 01/19/2024 COMP. METAB OLIC PANEL (14) AST (SGOT) 39 IU/L 0-40 normal Not Available [facility] ([facility]) [address] [facility] [place], [address], 01/19/2024 16:10:56 01/18/20 24 01/19/2024 COMP. METAB OLIC PANEL (14) ALT (SGPT) 58 IU/L 0-32 above high normal Not Available [facility] ([facility]) [address] [facility], [place], [address], 01/19/2024 16:10:56 01/18/20 24 01/19/2024 IRON AND TIBC iron bind.cap.(TI BC) 303 ug/dL 250-45 0 normal Not Available [facility] ([facility]) [address] [facility], [place], [address], 01/19/2024 16:10:56 01/18/20 24 01/19/2024 IRON AND TIBC UIBC 263 ug/dL 131-42 5 normal Not Available [facility] ([facility]) [address] [place], [address], 01/19/2024 16:10:56 01/18/2001/19/2024 IRON AND TIBC iron 40 ug/dL 27-159 normal Not Available [facility] ([facility]) [address] [place], [address], 01/19/2024 16:10:56 01/18/2001/19/2024 IRON AND TIBC iron saturation 13 % 15-55 below low normal Not Available [facility] ([facility]) [address] [place], [address], 01/19/2024 16:10:56 01/18/2001/19/2024 VITAM IN B12 AND FOLAT E vitamin B12 710 pg/mL 232-12 45 normal Not Available [facility] ([facility]) [address] [facility], [place], [address], 01/19/2024 16:10:57 01/18/2001/19/2024 VITAM IN B12 AND FOLAT E folate (folic acid), serum >20.0 NG/mL >3.0 A serum folat e xavier ntrat ion of less than 3.1 ng/mL is consi dered to repre sent clini zuleima defic iency . Not Available [facility] ([facility]) [address] [place], [address], 01/19/2024 16:10:57 01/18/2001/19/2024 THYRO GLOBU JHON ANTIB GUS thyroglobuli n antibody <1.0 IU/mL 0.0-0. 9 Thyro globu jhon Antib gus measu red by Kwame Mackay er Metho dolog y It shoul d be noted that the prese nce of thyro globu jhon antib odies may not be patho genic nor diagn ostic , espec ially at very low level s. The assay siena actujanene er has found that four perce nt of indiv idual s witho ut evide nce of thyro id disea se or autoi mmuni ty will have posit steph TgAb level s up to 4 IU/mL . Not Available [facility] ([facility]) [address] [place], [address], 01/19/2024 16:10:58 01/18/20 24 01/19/2024 THYRO ID PEROX IDASE (TPO) AB thyroid peroxidase (tpo) Ab 12 IU/mL 0-34 normal Not Available [facility] ([facility]) [address] [place], [address], 01/19/2024 16:10:58 01/18/20 24 01/19/2024 TRIIO DOTHY ALICE E (T3), FREE triiodothyro nine (T3), free 16.4 pg/mL 2.0-4. 4 above high normal Not Available [facility] ([facility]) [address] [place], [address], 01/19/2024 16:10:59 07/12/19 25 07/12/2024 FE+TI BC+FE R iron bind.cap.(TI BC) 351 ug/dL 250-45 0 normal Not Available [facility] ([facility]) [address] [place], [address], 07/12/2024 04:09:27 07/12/19 25 07/12/2024 FE+TI BC+FE R UIBC 312 ug/dL 131-42 5 normal Not Available [facility] ([facility]) [address] [place], [address], 07/12/2024 04:09:27 07/12/19 25 07/12/2024 FE+TI BC+FE R iron 39 ug/dL 27-159 normal Not Available [facility] ([facility]) [address] [place], [address], 07/12/2024 04:09:27 07/12/19 07/12/2024 FE+TI BC+FE R iron saturation 11 % 15-55 below low normal Not Available [facility] ([facility]) [address] [place], [address], 07/12/2024 04:09:27 07/12/1907/12/2024 FE+TI BC+FE R ferritin 41 NG/mL 15-150 normal Not Available [facility] ([facility]) [address] [place], [address], 07/12/2024 04:09:27 07/12/1907/12/2024 TSH+F REE T4 TSH 2.670 uIU/m L 0.450- 4.500 normal Not Available [facility] ([facility]) [address] [place], [address], 07/12/2024 04:09:28 07/12/1907/12/2024 TSH+F REE T4 T4,free(dire ct) 1.11 NG/dL 0.82-1 .77 normal Not Available [facility] ([facility]) [address] [place], [address], 07/12/2024 04:09:28 07/12/1907/12/2024 CBC WITH DIFFE RENTI AL/PL ATELE T WBC 5.0 x10e3 /uL 3.4-10 .8 normal Not Available [facility] ([facility]) [address] [place], [address], 07/12/2024 04:09:28 07/12/1907/12/2024 CBC WITH DIFFE RENTI AL/PL ATELE T RBC 4.78 x10e6 /uL 3.77-5 .28 normal Not Available [facility] ([facility]) [address] [place], [address], 07/12/2024 04:09:28 07/12/19 25 07/12/2024 CBC WITH DIFFE RENTI AL/PL ATELE T hemoglobin 12.6 g/dL 11.1-1 5.9 normal Not Available [facility] ([facility]) [address] [place], [address], 07/12/2024 04:09:28 07/12/19 25 07/12/2024 CBC WITH DIFFE RENTI AL/PL ATELE T hematocrit 38.6 % 34.0-4 6.6 normal Not Available [facility] ([facility]) [address] [place], [address], 07/12/2024 04:09:28 07/12/19 25 07/12/2024 CBC WITH DIFFE RENTI AL/PL ATELE T MCV 81 fL 79-97 normal Not Available [facility] ([facility]) [address] [place], [address], 07/12/2024 04:09:28 07/12/1907/12/2024 CBC WITH DIFFE RENTI AL/PL ATELE T MCH 26.4 pg 26.6-3 3.0 below low normal Not Available [facility] ([facility]) [address] [place], [address], 07/12/2024 04:09:28 07/12/19 25 07/12/2024 CBC WITH DIFFE RENTI AL/PL ATELE T MCHC 32.6 g/dL 31.5-3 5.7 normal Not Available [facility] ([facility]) [address] [place], [address], 07/12/2024 04:09:28 07/12/19 25 07/12/2024 CBC WITH DIFFE RENTI AL/PL ATELE T RDW 14.3 % 11.7-1 5.4 Not Available [facility] ([facility]) [address] [place], [address], 07/12/2024 04:09:28 07/12/19 25 07/12/2024 CBC WITH DIFFE RENTI AL/PL ATELE T platelets 237 x10e3 /uL 150-45 0 normal Not Available [facility] ([facility]) [address] [facility], [place], [address], 07/12/2024 04:09:28 07/12/19 25 07/12/2024 CBC WITH DIFFE RENTI AL/PL ATELE T neutrophils 35 % not estab. normal Not Available [facility] ([facility]) [address] [facility], [place], [address], 07/12/2024 04:09:28 07/12/19 25 07/12/2024 CBC WITH DIFFE RENTI AL/PL ATELE T lymphs 57 % not estab. normal Not Available [facility] ([facility]) [address] [facility], [place], [address], 07/12/2024 04:09:28 07/12/19 25 07/12/2024 CBC WITH DIFFE RENTI AL/PL ATELE T monocytes 6 % not estab. normal Not Available [facility] ([facility]) [address] [facility], [place], [address], 07/12/2024 04:09:28 07/12/19 25 07/12/2024 CBC WITH DIFFE RENTI AL/PL ATELE T eos 1 % not estab. normal Not Available [facility] ([facility]) [address] [facility], [place], [address], 07/12/2024 04:09:28 07/12/19 25 07/12/2024 CBC WITH DIFFE RENTI AL/PL ATELE T basos 1 % not estab. normal Not Available [facility] ([facility]) [address] [place], [address], 07/12/2024 04:09:28 07/12/19 25 07/12/2024 CBC WITH DIFFE RENTI AL/PL ATELE T immature cells RETIREMENT SPECIALIST Not Available [facility] ([facility]) [address] [place], [address], 07/12/2024 04:09:28 07/12/19 25 07/12/2024 CBC WITH DIFFE RENTI AL/PL ATELE T neutrophils (absolute) 1.8 x10e3 /uL 1.4-7. 0 normal Not Available [facility] ([facility]) [address] [facility], [place], [address], 07/12/2024 04:09:28 07/12/19 25 07/12/2024 CBC WITH DIFFE RENTI AL/PL ATELE T lymphs (absolute) 2.8 x10e3 /uL 0.7-3. 1 normal Not Available [facility] ([facility]) [address] [facility], [place], [address], 07/12/2024 04:09:28 07/12/19 25 07/12/2024 CBC WITH DIFFE RENTI AL/PL ATELE T monocytes(ab solute) 0.3 x10e3 /uL 0.1-0. 9 normal Not Available [facility] ([facility]) [address] [place], [address], 07/12/2024 04:09:28 07/12/19 25 07/12/2024 CBC WITH DIFFE RENTI AL/PL ATELE T eos (absolute) 0.1 x10e3 /uL 0.0-0. 4 normal Not Available [facility] ([facility]) [address] [place], [address], 07/12/2024 04:09:28 07/12/19 25 07/12/2024 CBC WITH DIFFE RENTI AL/PL ATELE T baso (absolute) 0.0 x10e3 /uL 0.0-0. 2 normal Not Available [facility] ([facility]) [address] [place], [address], 07/12/2024 04:09:28 07/12/19 25 07/12/2024 CBC WITH DIFFE RENTI AL/PL ATELE T immature granulocytes 0 % not estab. Not Available [facility] ([facility]) [address] [facility], [place], [address], 07/12/2024 04:09:28 07/12/19 25 07/12/2024 CBC WITH DIFFE RENTI AL/PL ATELE T immature grans (abs) 0.0 x10e3 /uL 0.0-0. 1 Not Available [facility] ([facility]) [address] [facility], [place], [address], 07/12/2024 04:09:28 07/12/19 25 07/12/2024 CBC WITH DIFFE RENTI AL/PL ATELE T NRBC RETIREMENT SPECIALIST Not Available [facility] ([facility]) [address] [facility], [place], [address], 07/12/2024 04:09:28 07/12/19 25 07/12/2024 CBC WITH DIFFE RENTI AL/PL ATELE T hematology comments: RETIREMENT SPECIALIST Not Available [facility] ([facility]) [address] [facility], [place], [address], 07/12/2024 04:09:28 07/12/19 25 07/12/2024 COMP. METAB OLIC PANEL (14) glucose 89 mg/dL 70-99 normal Not Available [facility] ([facility]) [address] [place], [address], 07/12/2024 04:09:28 07/12/19 25 07/12/2024 COMP. METAB OLIC PANEL (14) BUN 13 mg/dL 6-20 normal Not Available [facility] ([facility]) [address] [place], [address], 07/12/2024 04:09:28 07/12/19 25 07/12/2024 COMP. METAB OLIC PANEL (14) creatinine 0.69 mg/dL 0.57-1 .00 normal Not Available [facility] ([facility]) [address] [place], [address], 07/12/2024 04:09:28 07/12/19 25 07/12/2024 COMP. METAB OLIC PANEL (14) eGFR 113 mL/mi n/1.7 3 >59 normal Not Available [facility] ([facility]) [address] [place], [address], 07/12/2024 04:09:28 07/12/19 25 07/12/2024 COMP. METAB OLIC PANEL (14) BUN/creatini ne ratio 19 9-23 normal Not Available [facility] ([facility]) [address] [place], [address], 07/12/2024 04:09:28 07/12/19 25 07/12/2024 COMP. METAB OLIC PANEL (14) sodium 139 mmol/ L 134-14 4 normal Not Available [facility] ([facility]) [address] [facility] [place], [address], 07/12/2024 04:09:28 07/12/19 25 07/12/2024 COMP. METAB OLIC PANEL (14) potassium 3.9 mmol/ L 3.5-5. 2 normal Not Available [facility] ([facility]) [address] [facility] [place], [address], 07/12/2024 04:09:28 07/12/19 25 07/12/2024 COMP. METAB OLIC PANEL (14) chloride 101 mmol/ L 96-106 normal Not Available [facility] ([facility]) [address] [facility] [place], [address], 07/12/2024 04:09:28 07/12/19 25 07/12/2024 COMP. METAB OLIC PANEL (14) carbon dioxide, total 24 mmol/ L 20-29 normal Not Available [facility] ([facility]) [address] [facility] [place], [address], 07/12/2024 04:09:28 07/12/19 25 07/12/2024 COMP. METAB OLIC PANEL (14) calcium 9.6 mg/dL 8.7-10 .2 normal Not Available [facility] ([facility]) [address] [place], [address], 07/12/2024 04:09:28 07/12/19 25 07/12/2024 COMP. METAB OLIC PANEL (14) protein, total 7.1 g/dL 6.0-8. 5 normal Not Available [facility] ([facility]) [address] [place], [address], 07/12/2024 04:09:28 07/12/19 25 07/12/2024 COMP. METAB OLIC PANEL (14) albumin 4.4 g/dL 3.9-4. 9 normal Not Available [facility] ([facility]) [address] [facility] [place], [address], 07/12/2024 04:09:28 07/12/19 25 07/12/2024 COMP. METAB OLIC PANEL (14) globulin, total 2.7 g/dL 1.5-4. 5 Not Available [facility] ([facility]) [address] [facility] [place], [address], 07/12/2024 04:09:28 07/12/19 25 07/12/2024 COMP. METAB OLIC PANEL (14) bilirubin, total <0.2 mg/dL 0.0-1. 2 Not Available [facility] ([facility]) [address] [place], [address], 07/12/2024 04:09:28 07/12/19 25 07/12/2024 COMP. METAB OLIC PANEL (14) alkaline phosphatase 45 IU/L 44-121 normal Not Available [facility] ([facility]) [address] [place], [address], 07/12/2024 04:09:28 07/12/19 25 07/12/2024 COMP. METAB OLIC PANEL (14) AST (SGOT) 23 IU/L 0-40 normal Not Available [facility] ([facility]) [address] [place], [address], 07/12/2024 04:09:28 07/12/19 25 07/12/2024 COMP. METAB OLIC PANEL (14) ALT (SGPT) 20 IU/L 0-32 normal Not Available [facility] ([facility]) [address] [place], [address], 07/12/2024 04:09:28 07/12/19 25 07/12/2024 FSH AND LH LH 5.2 mIU/m L normal Adult Femal e Range Folli cular phase 2.4 - 12.6 Ovula tion phase 14.0 - 95.6 Lutea l phase 1.0 - 11.4 Postm enopa usal 7.7 - 58.5 Not Available [facility] ([facility]) [address] [place], [address], 07/12/2024 04:09:29 07/12/19 25 07/12/2024 FSH AND LH FSH 3.9 mIU/m L Adult Femal e Range Folli cular phase 3.5 - 12.5 Ovula tion phase 4.7 - 21.5 Lutea l phase 1.7 - 7.7 Postm enopa usal 25.8 - 134.8 Not Available [facility] ([facility]) [address] [place], [address], 07/12/2024 04:09:29 07/12/19 25 07/12/2024 PROLA CTIN prolactin 25.4 NG/mL 4.8-33 .4 normal Not Available [facility] ([facility]) [address] [place], [address], 07/12/2024 04:09:29 07/12/19 25 07/12/2024 ESTRA DIOL estradiol 91.8 pg/mL normal Adult Femal e Range Folli cular phase 12.5 - 166.0 Ovula tion phase 85.8 - 498.0 Lutea l phase 43.8 - 211.0 Postm enopa usal <6.0 - 54.7 Pregn venancio 1st trime ster 215.0 - >4300 .0 Noy ECLIA metho dolog y Not Available [facility] ([facility]) [address] [facility], [place], [address], 07/12/2024 04:09:29 07/12/19 25 07/12/2024 PROGE STERO NE progesterone 0.1 NG/mL normal Folli cular phase 0.1 - 0.9 Lutea l phase 1.8 - 23.9 Ovula tion phase 0.1 - 12.0 Pregn ant First trime ster 11.0 - 44.3 Secon d trime ster 25.4 - 83.3 Third trime ster 58.7 - 214.0 Postm enopa usal 0.0 - 0.1 Not Available [facility] ([facility]) [address] [facility], [place], [address], 07/12/2024 04:09:30 01/03/2001/02/2025 urina lysis , dipst ick Leukocytes Modera te Not Available [address], [address], 01/02/2025 14:51:34 01/03/20 25 01/02/2025 urina lysis , dipst ick Nitrite positi ve Not Available [address], [address], 01/02/2025 14:51:34 01/03/2001/02/2025 urina lysis , dipst ick Urobilinogen .2 Not Available [address], [address], 01/02/2025 14:51:34 1001/02/2025 urina lysis , dipst ick Protein 100 Not Available [address], [address], 01/02/2025 14:51:34 01/03/2001/02/2025 urina lysis , dipst ick pH 6.5 Not Available [address], [address], 01/02/2025 14:51:34 01/03/2001/02/2025 urina lysis , dipst ick Blood Large Not Available [address], [address], 01/02/2025 14:51:34 01/03/2001/02/2025 urina lysis , dipst ick Specific [place] 1.025 Not Available [address], [address], 01/02/2025 14:51:34 01/03/2001/02/2025 urina lysis , dipst ick Ketone Negati ve Not Available [address], [address], 01/02/2025 14:51:34 01/03/2001/02/2025 urina lysis , dipst ick Bilirubin Negati ve Not Available [address], [address], 01/02/2025 14:51:34 01/03/2001/02/2025 urina lysis , dipst ick Glucose Negati ve Not Available [address], [address], 01/02/2025 14:51:34 01/03/2001/02/2025 urina lysis , dipst ick Appearance Clear Not Available [address], [address], 01/02/2025 14:51:34 01/03/20 25 01/02/2025 urina lysis , dipst ick Color Brown Not Available [address], [address], 01/02/2025 14:51:34 01/03/20 24 US, thyro id No observ ation record ed. [email or web address] Not Available 2023 13:14:20 01/03/20 24 US, neck, soft tissu e No observ ation record ed. [email or web address] [address], [place], [address], 01/04/2024 13:14:20 Result Notes None recorded. Problems Name Problem SNOMED Code Status Onset Date Resolution Date Notes Provider Name and Address Organization Details Recorded Time Vitamin D deficien cy 50917638 Active 2018 Problem Code: E55; Problem Code Type: ICD-10; Not Available [facility] 21:04:35 Hypokale jeovany 44349308 Active 2018 Problem Code: E87.6; Problem Code Type: ICD-10; Not Available [facility] 21:04:35 Benign paroxysm al position al vertigo or nystagmu s 739743631 Completed 201803/04/2019 Not Available [facility] 21:04:35 Hyperten sive disorder 30042726 Active 2018 Problem Code: I10; Problem Code Type: ICD-10; Not Available [facility] 21:04:36 General examinat ion of patient Active 2019 Not Available [facility] 2 21:04:36 Mass of neck 275786594 Active 2023 Marlen Woodson, RETIREMENT SPECIALIST [address] [place], [address] , [place] [employer] 4 11:19:27 Urinary tract infectio us disease 96082953 Active 2024 Lisa HunterKACY dunbar [address] [place], [address] , [employer] 5 14:59:44 Recurren t kidney stone 92710541582 96448 Active 2024 Lisa KACY Hill [address] [place], [address] , [employer] 5 15:15:23 Problem Notes None recorded. Procedures Surgical History Date Name Laterality Status Provider Name and Address Organization Details Recorded Time ligation of fallopian tube completed ALY JIMÉNEZ Aviir. 07/11/2024 14:55:15 Imaging Results None recorded. Procedure [...] Details Last Updated DateTime 5 172.72 cm 32 kg/m2 43386.8 3 g 97.9 [degF] 59 /min 98 % 98 % 122/74 mm[Hg] ALY [employer] 5 14:54:27 Date Recorded Body height Body mass index (BMI) Body weight Body temperature Heart rate Oxygen saturation Oxygen saturation in Arterial blood by Pulse oximetry Systolic And Diastolic Provider Name and Address Organization Details Last Updated DateTime 4 172.72 cm 33.8 kg/m2 936484. 94 g 98.3 [degF] 95 /min 98 % 98 % 110/70 mm[Hg] [employer] 4 12:57:15 Date Recorded Body height Body mass index (BMI) Body weight Heart rate Oxygen saturation Oxygen saturation in Arterial blood by Pulse oximetry Systolic And Diastolic Provider Name and Address Organization Details Last Updated DateTime 4 172.72 cm 29.7 kg/m2 56141.3 1 g 91 /min 97 % 97 % 134/81 mm[Hg] Sena Mejia [employer] 4 11:02:09 Date Recorded Body height Body mass index (BMI) Body weight Body temperature Heart rate Oxygen saturation Oxygen saturation in Arterial blood by Pulse oximetry Systolic And Diastolic Provider Name and Address Organization Details Last Updated DateTime 5 172.72 cm 34.1 kg/m2 460580. 13 g 98.8 [degF] 82 /min 98 % 98 % 112/68 mm[Hg] [employer] 5 14:51:00 Date Recorded Body height Body mass index (BMI) Body weight Body temperature Heart rate Oxygen saturation Oxygen saturation in Arterial blood by Pulse oximetry Systolic And Diastolic Provider Name and Address Organization Details Last Updated DateTime 4 172.72 cm 28.4 kg/m2 53354.7 7 g 98 [degF] 104 /min 97 % 97 % 100/56 mm[Hg] ALY GALEANAMARY [employer] 16:31:21 Social History Question Answer Notes LastModified by Organizat ion Details LastModified Time Tobacco Smoking Status Never Smoker Reannamora Torres nils [employer] 10/15/2022 15:47:32 Do You Have An Advance Directive? No Information not available 12/15/2021 Is Your Home Air Conditioned? No Information not available 12/15/2021 Do You Wear A Helmet When Biking? No Information not available 12/15/2021 Are You Blind Or Do You Have Difficulty Seeing? No Information not available 12/15/2021 Are You A Caregiver? Yes Information not available 12/15/2021 What Type Of Ibm Mainframe Developer Do You Use? None Information not available [...] not available 12/15/2021 Where Do You Live? [facility] Information not available 12/15/2021 Do You Have A Medical Power Of Offset Lithographic Press Setter? No Information not available 12/15/2021 What Was [...] Has Tobacco Cessation Counseling Been Provided? No [email or web address] Information not available 12/30/2023 Have You Recently [...] anxious, or unable to sleep at night)? [id number] PROTESTANT Information not available 12/15/2021 Do you have [...] in brother*Relative: Brother Medical History Condition Response Hospitalizations N Emergency room visit since last appointm ent. N Anemia Y Kidney Stones Y Hypertension Y Gynecological History Statement/Question Response Date of Last Pap Smear Most Recent Mammogram Obstetrics History GPAL:G 0 P 0 0 0 0 Past Encounters Encounter ID Performer Location Encounter Start Date Encounter Closed Date Diagnosis/Indication Diagnosis SNOMED-CT Code Diagnosis ICD10 Code Diagnosis IMO Codes Diagnosis Note [id number] [place] [address] 12/15/2021 15:29:21 12/15/2021 16:53:52 Acute urinary tract infection 203462878 N39.0 [id number] Juliet Glez [place] [id number] 01/12/2022 15:00:18 01/12/2022 15:24:49 Dysuria 45554295 R30.0 Acute cystitis 72219321 N30.01 [id number] [address] [place] [id number] 02/08/2022 15:17:52 02/08/2022 16:01:45 Acute urinary tract infection 966980739 N39.0 [id number] [address] [place] [id number] 0 04/19/2022 09:23:23 04/19/2022 10:06:50 Hypertensive disorder 97986000 I10 Continue current medication s. Vitamin D deficiency 347 79449 E55.9 Iron defic iency anemia 59681694 D50.9 Fatigue 88613214 R53.83 [id number] [place] [address] 10/15/2022 15:27:58 10/15/2022 16:30:21 Hypertensive disorder 98003171 I10 Continue current medication s. Continue MVI, adequate hydration emphasized . Vitamin D deficiency 347 84164 E55.9 [id number] [place] [address] 0 02/14/2023 12:44:15 02/14/2023 13:35:03 Diverticulitis of colon 250802480 K57.32 Diverticul ar diet explained and etiology of diverticul itis outlined. . Avoid eating all seeds, nuts and corn. She is to take miralax and metamucil cocktail daily. [id number] Lisa [address] [place] [id number] 0 04/15/2023 12:50:07 04/15/2023 13:53:48 Recurrent kidney stone 3750398374 357252 N20.0 Change potassium chloride to potassium citrate. Only take the vitamin. Increase oral fluids and eat a low purine diet. Drink 6 oz tart dark valencia juice daily. Vitamin D deficiency 347 26050 E55.9 Hypertensive disorder 38 524343 I10 Continue current medication s. Continue MVI, adequate hydration emphasized . Hypothyroidism 15668568 E03.9 Cobalamin deficiency 190 937069 E53.8 [id number] [address] [place] [address] 0 10/14/2023 12:40:08 10/14/2023 13:36:31 Intermittent palpitations 253253584 R00.2 Rest, hydrate, maintain cool temp in her home. Pharmacy here will order her another brand of the pot citrate. Obtain labs today. Vitamin D deficiency 347 99333 E55.9 [id number] Marlen ChintanRAQUEL [place] [address] 0 12/30/2023 10:19:03 12/30/2023 11:29:56 Mass of neck 360933308 R22.1 [id number] [address] [place] [address] 0 01/17/2024 16:24:15 01/17/2024 17:04:22 Goiter 4071500 E04.9 I suspect thyroid storm post versus toxic thyroid nodule. Will likely begin methimazol e and refer to ENDO if her thyroid labs are elevated. Iron defic iency anemia 85043127 D50.9 Recurrent kidney stone 5849863374 462143 N20.0 Change potassium chloride to potassium citrate. Only take the vitamin. Increase oral fluids and eat a low purine diet. Drink 6 oz tart dark valencia juice daily. Muscle weakness 02210913 M62.81 [id number] Lisa Hill [employer] [place] [address] 0 07/11/2024 14:42:23 07/11/2024 15:24:45 Irregular periods 46810222 N92.6 Obtain labs. If labs are unremarkab le, she will discuss obtaining transvag US with her spouse. Take MVI daily. [id number] Lisa Hill [employer] [place] [address] 0 01/02/2025 14:30:23 01/02/2025 15:24:52 Urinary tract infectious disease 15391884 N39.0 [id number] Nicole, a female with history of kidney [...] t within 24-36 hours. Recurrent kidney stone 1040125895 420874 N20.0 Restart Potassium citrate. Health Concerns Section Related Observation LastModified by Organization Detai ls LastModified Time None Recorded Concern Status LastModified by Organization Details LastModified Time None Recorded Advance Directives Directive N: Payers Insurance Date Sequence Insurance Name Policy Number Policy Leach Covered Member ID Leach Member ID Guarantor Name 10/18/2023 SLIDING FEE SCHEDULE - DISCOUNT Nicole L Jorge 11/06/2024 SLIDING FEE SCHEDULE - DISCOUNT Nicole L Jorge 11/06/2024 SLIDING FEE SCHEDULE - DISCOUNT Nicole L Jorge 12/15/2021 1 *SELF PAY* Ron Coleman Jorge Notes Date Note Type Note Provider Name and Address Organization Details Recorded Time 4 text/html PalpitationsReported by PatientHPIFor quality, patient reportsskippingandflip-fl opping. For context, patient reportsexertional,occurs with stress,abrupt onset without warning, andanxiety. For aggravating factors, patient reportsemotional stressandexercise. For associated symptoms, patient reportsdyspnea,decline in exercise capacity, andfatiguebut reportsno chest pain/discomfortandno associated dizziness. For location, patient reportschest. For severity, patient reportsmild. For duration, patient reportslasts seconds. For onset/timing, patient reportsoccurs weeklyandintermittent. For alleviating factors, patient reportsrest.ROS as noted in the HPI She is 8 moths , followed by OB at [facility]. She takes potassium citrate for renal stone prevention and hypokalemia. Her recently filled potassium citrate is not digesting and she reports pill is coming out whole in her BMs. Has hx vit D deficiency. She has had no problems during this and reports good movement. She has had similar sx during previous pregnancies . She is [employer]EST[employer] and has no AC and has been doing chores in the heat. She is trying to maintain good hydration. Lisa Hill, [employer] [address] [facility], [place], [address], [employer]. 10/16/2023 15:58:47 4 text/html Patient presents for evaluation of lumps on her neck. Just started last week. Anterior neck over thyroid. Never had thyroid issues. States she has had a lot of fatigue, hair loss and dry skin, but her labs have always been normal. She has had chronic fatigue. No joint pains. No recent illness. She is , delivered 4 weeks ago. Had at [facility]. No known thyroid problems during . Last TSH normal 10/2023. Marlen Woodson NP [address] [place], [address], [employer] 12/30/2023 12:53:13 4 text/html ROS as noted in the HPI Recent thyroid US revealed TRADS 4 8mm solid nodule left thyroid lobeShe complains of anxiety, a 35 pound significant weight loss, palpitations, hair loss, frequent diarrhea since of her last child in November. Csection was performed with BTL. 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 Her daughter has Nena's diagnosed at age 14. Her thyroid labs were WNL 10/14/2023 during the . She has never taken any thyroid medications but was taking an iodine supplement last taken about 1 year ago.Palpable goiter noted left thyroid today on exam. Lisa Hill APRN [address] [place], [address], [employer] 01/22/2024 18:52:14 5 text/html Irregular PeriodsReported by PatientHPIFor associated symptoms, patient reportsfatiguebut reportsno irritabilityandgood quality of life. For onset/timing, patient reportspresent cycle. For quality, patient reportsheavy. For duration, patient reports7-10 days/month. For severity, patient reportsmoderate. For context, patient reportsthyroid disfunction.ROS as noted in the HPI [facility] female with hx grandmultiparity, hx boggy uterus, hx molar . Had BTL at her last C section. Lisa Hill APRN [address] [place], [address], [employer] 07/11/2024 15:30:07 text/html ROS as noted in the HPI [...] abdominal pain, vomiting, diarrhea, or constipation. Lisa Hill, [employer] [address] [facility], [place], [address], [employer] 01/02/2025 15:38:11 OBGyn Episode No OBEpisode recorded.
--- NOTE | 2025-01-03 21:21 | PC.NURSE ---
patient refused EKG at this time. MD Romulo Mccloud notified
--- NOTE | 2025-01-03 21:22 | ED_ITS ---
Discharge Plan Disposition Patient Disposition: Admitted Condition: Good Prescriptions Prescriptions: No Action cholecalciferol (vitamin D3) 50 mcg (2,000 unit) tablet 50 mcg PO DAILY Patient Comments: TAKE ONE TABLET BY MOUTH EVERY DAY potassium chloride 10 mEq capsule, extended release 10 meq PO DAILY Patient Comments: TAKE ONE CAPSULE BY MOUTH EVERY DAY hydrochlorothiazide 25 mg tablet 25 mg PO DAILY Patient Comments: TAKE 1 TABLET 1 TIME EACH DAY hydromorphone [Dilaudid] 2 mg tablet 2 mg PO Q6H Qty: 20 0RF PNV no.95-ferrous fumarate-FA [] 28 mg iron- 800 mcg Tablet 1 tab PO DAILY Referrals Follow up/Referrals: Lisa Hill [Primary Care Provider, Medical] - See instructions Clinical Impressions Clinical Impression: Pyelonephritis, UTI (urinary tract infection), Sepsis, Cholelithiasis, Obstruction of right ureter Stand Alone Forms Stand Alone Forms: Transfer Record - ED Instructions Patient Instructions: DI for Acute Abdominal Pain Print Language Print Language: Khmer Discharge ED Provider: Nara Mccloud General Adult HPI <Nara Mccloud DO - Last Filed: 01/04/25 00:00> General Chief complaint: Abdominal Pain Stated complaint: abdominal pain, vomiting Time Seen by Provider: 01/03/25 21:15 Mode of Arrival: Ambulatory Description of Symptoms (Recalled from ER Triage Doc. by RN): Patient states last night she began to have right side pain that radiates into the flanks and into the RLQ. States pain is a 8/10. States she has had no relief from home remedies. States she has had nausea. Patient did advises she was seen by her PCP for a UTI and perscribed a sulfa antibiotic shot, which they believe started the symtpoms. History of Present Illness HPI narrative: Patient is a 39-year-old female who has had 11 children, only 1 section who presented to the emergency department with right upper quadrant and right flank pain. Patient states that her pain is currently a 9 out of 10. Patient states that she was diagnosed with a urinary tract infection by her primary care provider yesterday was given a dose of Bactrim. Patient states that she feels like the Bactrim has made it worse. Patient states that she was given a shot of antibiotics at her primary care provider as well. Patient states that she has had an intermittent subjective fevers at home. Patient denies any nausea or vomiting. Patient denies any diarrhea. Patient denies any chest pain or shortness of breath. Patient states that she does have a history of kidney stones but this pain feels different. Related Data Home Medications ?Medication ?Instructions ?Recorded ?Confirmed hydrochlorothiazide 25 mg tablet 25 mg PO DAILY 12/02/23 cholecalciferol (vitamin D3) 50 50 mcg PO DAILY 12/02/23 mcg (2,000 unit) tablet potassium chloride 10 mEq 10 meq PO DAILY 11/24/22 capsule,extended release vit no.95-ferrous 1 tab PO DAILY Supplement 1 04/06/22 12/02/23 fumarate 28 mg-folic acid 800 mcg tablet () Previous Rx's ?Medication ?Instructions ?Recorded hydromorphone 2 mg tablet 2 mg PO Q6H #20 tabs 4 (Dilaudid) Allergies Allergy/AdvReac Type Severity Reaction Status Date / Time No Known Allergies Allergy Verified 11/15/23 15:24 [facility] <Nara Mccloud, DO - Last Filed: 01/04/25 00:00> [facility] Disclaimer: The information contained in this section may have been updated after the patient was seen, as this information can be updated by other users. Medical History (Updated 01/04/25 @ 01:26 by Souleymane Valladares MD) Spinal headache complicating labor and delivery, delivered Hypokalemia Diverticulitis Hypertension Molar Jehovah'S Witness ancestry Gestational hypertension Grand multiparity Surgical History History of dilation and curettage Family History No significant family history Colon cancer Diabetes Hyperthyroidism Heart attack Social History (Updated 12/02/23 @ 10:30 by Reanna Cuadra RN) Smoking Status: Never smoker alcohol intake: never substance use type: denies use current occupational status: unemployed Travel in the last 8 weeks?: None adopted: No caregiver/support person: No foster care: No household members: spouse and children housing: house lives independently: Yes marital status: number of children: 10 harlan/holiness: Jehovah'[employer] Witness Have you lived/traveled outside US in past 30 days?: No Contact w/someone who lives/traveled outside US past 30 days?: No Exposure to someone with infectious disease in past 14 days?: No Do you have a fever (greater than 100.4 F or 38 C)?: No Have you tested positive for COVID-19?: No Exposed to someone with COVID-19 in past 14 days?: No Do you have a sore throat?: No Do you have a cough?: No Do you have any weakness?: No Do you have any diarrhea?: No Are you experiencing any unusual bleeding?: No Do you have any muscle aches/pain?: No Do you have any abdominal pain?: Yes Are you experiencing loss of taste or smell?: No Other Medical History Have you received the Flu Vaccine for this season: No Have you received the Pneumonia Vaccine: No <Nara Mccloud DO - Last Filed: 01/04/25 00:00> ROS Obtained: Yes All systems reviewed & no additional complaints except as documented and Yes Systems reviewed as appropriate & no additional complaints except as documented Physical Exam <Nara Mccloud DO - Last Filed: 01/04/25 00:00> General General appearance: alert and in no apparent distress Head Head exam: atraumatic, normocephalic and normal inspection Eye Eye exam: Present normal appearance, PERRL and EOMI; Absent scleral icterus ENT ENT exam: Present normal exam and normal external ear exam Neck Neck exam: Present normal inspection and full ROM Chest Chest inspection: Present normal inspection and symmetric chest wall rise Respiratory Respiratory exam: Present normal lung sounds bilaterally; Absent respiratory distress or wheezes Cardiovascular Cardiovascular exam: Present normal rhythm, tachycardia and normal heart sounds Abdominal Exam Abdominal exam: Present soft, distention and tenderness (RUQ/R CVA tenderness); Absent guarding or rebound Extremities Exam Extremities exam: Present normal inspection and full ROM Back Exam Back exam: Present normal inspection and full ROM Neurological Exam Neurological exam: Present alert and oriented X3 Psychiatric Psychiatric exam: Present normal affect and normal mood Skin Skin exam: Present warm and dry Medical Decision Making <Nara Mccloud DO - Last Filed: 01/04/25 00:00> Medical Records Medical records reviewed: Yes I reviewed the patient's medical records. Screening: Per USPSTF and CDC recommendations, given the prevalence of disease in our region, it is our hospital?s policy to screen for HIV and viral Hepatitis for all patients aged 18 and over and those with ongoing risk factors. Rafa Inquiry Pt receiving controlled substance: No Vital Signs: 01/03/25 21:15 01/03/25 21:20 01/03/25 21:30 Temperature 98.7 F 98.7 F Temperature Source Oral Pulse Rate 122 H 111 H Pulse Rate [Right] 122 H Respiratory Rate 17 17 Blood Pressure 153/98 H 126/85 Blood Pressure [Right Arm] 153/98 H Blood Pressure Mean [Right Arm] 116 02 Sat by Pulse Oximetry 97 96 99 01/03/25 22:00 01/03/25 22:30 01/03/25 23:00 Temperature Temperature Source Pulse Rate 119 H 110 H 108 H Pulse Rate [Right] Respiratory Rate Blood Pressure 136/74 120/76 110/73 Blood Pressure [Right Arm] Blood Pressure Mean [Right Arm] 02 Sat by Pulse Oximetry 96 97 96 01/03/25 23:30 01/04/25 00:01 01/04/25 00:30 Temperature Temperature Source Pulse Rate 99 H 105 H 99 H Pulse Rate [Right] Respiratory Rate Blood Pressure 110/65 109/63 L 102/61 L Blood Pressure [Right Arm] Blood Pressure Mean [Right Arm] 02 Sat by Pulse Oximetry 95 97 97 Lab Data Lab results reviewed: Yes I reviewed the patient's lab results. Lab Results 01/03/25 21:06: Urine Color Yellow, Urine Appearance Sl cloudy, Urine pH 6.0, Ur Specific Whitman 1.025, Urine Protein 2+ A, Urine Glucose (UA) Negative, Urine Ketones 2+, Urine Blood 3+ A, Urine Nitrate Positive A, Urine Bilirubin Negative, Urine Urobilinogen 0.2, Ur Leukocyte Esterase 1+ A, Urine RBC 20-50, Urine WBC 5-10, Ur Squamous Epith Cells 3-5, Urine Bacteria 1+ 01/03/25 21:17: WBC 14.1 H, RBC 4.55, Hgb 12.1 L, Hct 36.9 L, MCV 81.1, MCH 26.6 L, MCHC 32.8, RDW 14.4, Plt Count 210, MPV 11.1 H, Neut % (Auto) 86.4 H, Lymph % (Auto) 6.5 L, Letcher % (Auto) 5.2, Eos % (Auto) 0.4, Baso % (Auto) 0.3, Neut # (Auto) 12.2 H, Lymph # (Auto) 0.9, Letcher # (Auto) 0.7, Eos # (Auto) 0.1, Baso # (Auto) 0.0, Sodium 133 L, Potassium 4.4, Chloride 98, Carbon Dioxide 21 L, Anion Gap 18.4 H, BUN 13, Creatinine 0.90, Estimated Creat Clear 99, Estimated GFR 70, Est GFR ( Amer) 84, Glucose 130 H, Calcium 9.9, Magnesium 1.5 L, Total Bilirubin 1.0, AST 33, ALT 18, Alkaline Phosphatase 97, Total Protein 7.0, Albumin 4.1, Globulin 2.9, Albumin/Globulin Ratio 1.4, Lipase 13 L, Serum HCG, Qual Negative 01/03/25 21:17 01/03/25 21:17 Orders (Tests/Meds): ED MEDICATIONS Generic Name Dose Route Start Last Admin Trade Name Freq PRN Reason Stop Dose Admin Acetaminophen 650 mg 01/03/25 23:23 Acetaminophen 325mg Tab PO 02/02/25 23:22 Q4HP PRN Fever or Mild Pain (1-3) Heparin Sodium (Porcine) 5,000 unit 01/04/25 09:00 Heparin Sodium 5,000 Unit/Ml Vial SUBCUT 02/03/25 08:59 TID PADMINI Hydromorphone HCl 1 mg 01/03/25 23:23 Hydromorphone 2mg/Ml Syringe IV 02/02/25 23:22 Q4HP PRN Severe Pain (7-10) Ceftriaxone Sodium 2 gm/ 100 mls @ 200 mls/hr 01/03/25 22:30 01/03/25 23:20 Sodium Chloride IV 01/13/25 22:29 Infused Q24H PADMINI Infusion Sodium Chloride 1,000 mls @ 50 mls/hr 01/03/25 23:30 01/04/25 00:06 Sod Chlor 0.9% 1000ml Bag IV 02/02/25 23:29 50 mls/hr .Q20H PADMINI Administration Magnesium Sulfate 2 gm in 50 mls @ 150 mls/hr 01/04/25 01:21 Magnesium Sulfate 2gm/50ml Premix IV 01/04/25 01:40 ONCE ONE Ketorolac Tromethamine 30 mg 01/03/25 23:59 01/04/25 00:06 Ketorolac 30mg/Ml Vial IV 01/04/25 00:00 30 mg ONCE ONE Administration Ondansetron HCl 4 mg 01/03/25 23:23 Ondansetron 4mg/2ml Vial IV 02/02/25 23:22 Q8HP PRN Nausea Tamsulosin HCl 0.4 mg 01/04/25 21:00 Tamsulosin 0.4mg Capsule PO 02/03/25 20:59 HS PADMINI Discontinued Medications Generic Name Dose Route Start Last Admin Trade Name Fretavo PRN Reason Stop Dose Admin Lactated Ringer's 500 mls @ 999 mls/hr 01/03/25 21:29 01/03/25 23:34 Lactated Ringer's 1000 Ml Bag IV 01/03/25 21:59 Infused .Q31M ONE Infusion Iopamidol 75 ml 01/03/25 22:08 01/03/25 22:09 Iopamidol-370 (76%);100ml Bottle IV 01/03/25 22:09 75 ml ONCE ONE Administration Morphine Sulfate 4 mg 01/03/25 21:29 01/03/25 21:35 Morphine 4mg/Ml Syringe IV 01/03/25 21:30 4 mg ONCE ONE Administration Ondansetron HCl 4 mg 01/03/25 21:29 01/03/25 21:35 Ondansetron 4mg/2ml Vial IV 01/03/25 21:30 4 mg ONCE ONE Administration Sodium Chloride 10 ml 01/03/25 22:08 01/03/25 22:09 Sodium Chloride 0.9% 10ml Syr (Rad Only) IV 01/03/25 22:09 10 ml ONCE ONE Administration ORDERS Category Date Time Status CT abdomen pelvis w con Stat Cat Scan 01/03/25 21:28 Completed POCUS Point of Care (ER Only) Stat Exams 01/03/25 21:29 Completed Basic Metabolic Panel AMLAB Lab 01/04/25 06:00 Ordered CBC w/Auto Diff [Complete Blood Count Auto Diff] Stat Lab 01/03/25 21:17 Completed CMP [Comprehensive Metabolic Panel] Stat Lab 01/03/25 21:17 Completed Complete Blood Count Auto Diff AMLAB Lab 01/04/25 06:00 Ordered HCG Qualitative, Serum Stat Lab 01/03/25 21:17 Completed Lipase Stat Lab 01/03/25 21:17 Completed Magnesium Stat Lab 01/03/25 21:17 Completed UA [Urinalysis and Microscopic] Stat Lab 01/03/25 21:06 Completed Blood Culture Stat Micro 01/03/25 21:51 Received Urine Culture Stat Micro 01/03/25 21:30 Received VBG [Venous Blood Gas] Stat RT 01/04/25 01:21 Ordered Medical Decision Narrative: Patient is an otherwise 39-year-old female with a past medical history of kidney stones, 11 pregnancies 1 section who presented to the emergency department with right upper quadrant right flank pain. On arrival, patient was tachycardic but hemodynamically stable afebrile. Vital signs were otherwise unremarkable. Differential includes but not limited to: Dehydration, SAM, electrolyte abnormalities, UTI, pyelonephritis, obstructed stone, cholelithiasis, cholecystitis, amongst others. Patient's labs were reviewed and interpreted by myself: CBC showed a leukocytosis of 14, hemoglobin was stable. CMP showed mildly elevated anion gap at 18 mildly hyponatremic at 133. Lipase normal. UA had 3+ blood, positive nitrates, positive leuk esterase, 20-50 red blood cells, 5-10 white blood cells and bacteria. test negative. Patient CT scan was reviewed and interpreted by myself. Did show some right sided hydro with some associated stranding around the kidney. Gallbladder had significant gallstones. On initial read by radiology, they mention right-sided pyelonephritis, some nonobstructing left-sided nephrolithiasis but on initial read did not mention a kidney stone on the right. After further discussion with radiology, it was a missed read and addendum was added and patient has a 6 x 6 x 4 mm right sided kidney stone. Patient was given a dose of Rocephin in the emergency department, patient was given IV fluids. Patient was given a dose of morphine. Patient's pain was significantly improved. Will be ordered Toradol and Flomax for further management. Bedside ultrasound was performed and gallbladder showed significant gallstones but no evidence of cholecystitis. Gallbladder wall was not thickened and there was no evidence of pericholecystic fluid. At this time, patient was signed out to the oncoming provider pending transfer for septic stone and finding accepting facility. <Souleymane Valladares MD - Last Filed: 01/04/25 01:26> Vital Signs: 01/03/25 21:15 01/03/25 21:20 01/03/25 21:30 Temperature 98.7 F 98.7 F Temperature Source Oral Pulse Rate 122 H 111 H Pulse Rate [Right] 122 H Respiratory Rate 17 17 Blood Pressure 153/98 H 126/85 Blood Pressure [Right Arm] 153/98 H Blood Pressure Mean [Right Arm] 116 02 Sat by Pulse Oximetry 97 96 99 01/03/25 22:00 01/03/25 22:30 01/03/25 23:00 Temperature Temperature Source Pulse Rate 119 H 110 H 108 H Pulse Rate [Right] Respiratory Rate Blood Pressure 136/74 120/76 110/73 Blood Pressure [Right Arm] Blood Pressure Mean [Right Arm] 02 Sat by Pulse Oximetry 96 97 96 01/03/25 23:30 01/04/25 00:01 01/04/25 00:30 Temperature Temperature Source Pulse Rate 99 H 105 H 99 H Pulse Rate [Right] Respiratory Rate Blood Pressure 110/65 109/63 L 102/61 L Blood Pressure [Right Arm] Blood Pressure Mean [Right Arm] 02 Sat by Pulse Oximetry 95 97 97 Lab Data Lab Results 01/03/25 21:06: Urine Color Yellow, Urine Appearance Sl cloudy, Urine pH 6.0, Ur Specific Whitman 1.025, Urine Protein 2+ A, Urine Glucose (UA) Negative, Urine Ketones 2+, Urine Blood 3+ A, Urine Nitrate Positive A, Urine Bilirubin Negative, Urine Urobilinogen 0.2, Ur Leukocyte Esterase 1+ A, Urine RBC 20-50, Urine WBC 5-10, Ur Squamous Epith Cells 3-5, Urine Bacteria 1+ 01/03/25 21:17: WBC 14.1 H, RBC 4.55, Hgb 12.1 L, Hct 36.9 L, MCV 81.1, MCH 26.6 L, MCHC 32.8, RDW 14.4, Plt Count 210, MPV 11.1 H, Neut % (Auto) 86.4 H, Lymph % (Auto) 6.5 L, Letcher % (Auto) 5.2, Eos % (Auto) 0.4, Baso % (Auto) 0.3, Neut # (Auto) 12.2 H, Lymph # (Auto) 0.9, Letcher # (Auto) 0.7, Eos # (Auto) 0.1, Baso # (Auto) 0.0, Sodium 133 L, Potassium 4.4, Chloride 98, Carbon Dioxide 21 L, Anion Gap 18.4 H, BUN 13, Creatinine 0.90, Estimated Creat Clear 99, Estimated GFR 70, Est GFR ( Amer) 84, Glucose 130 H, Calcium 9.9, Magnesium 1.5 L, Total Bilirubin 1.0, AST 33, ALT 18, Alkaline Phosphatase 97, Total Protein 7.0, Albumin 4.1, Globulin 2.9, Albumin/Globulin Ratio 1.4, Lipase 13 L, Serum HCG, Qual Negative Orders (Tests/Meds): ED MEDICATIONS Generic Name Dose Route Start Last Admin Trade Name Freq PRN Reason Stop Dose Admin Acetaminophen 650 mg 01/03/25 23:23 Acetaminophen 325mg Tab PO 02/02/25 23:22 Q4HP PRN Fever or Mild Pain (1-3) Heparin Sodium (Porcine) 5,000 unit 01/04/25 09:00 Heparin Sodium 5,000 Unit/Ml Vial SUBCUT 02/03/25 08:59 TID PADMINI Hydromorphone HCl 1 mg 01/03/25 23:23 Hydromorphone 2mg/Ml Syringe IV 02/02/25 23:22 Q4HP PRN Severe Pain (7-10) Ceftriaxone Sodium 2 gm/ 100 mls @ 200 mls/hr 01/03/25 22:30 01/03/25 23:20 Sodium Chloride IV 01/13/25 22:29 Infused Q24H PADMINI Infusion Sodium Chloride 1,000 mls @ 50 mls/hr 01/03/25 23:30 01/04/25 00:06 Sod Chlor 0.9% 1000ml Bag IV 02/02/25 23:29 50 mls/hr .Q20H PADMINI Administration Magnesium Sulfate 2 gm in 50 mls @ 150 mls/hr 01/04/25 01:21 Magnesium Sulfate 2gm/50ml Premix IV 01/04/25 01:40 ONCE ONE Ketorolac Tromethamine 30 mg 01/03/25 23:59 01/04/25 00:06 Ketorolac 30mg/Ml Vial IV 01/04/25 00:00 30 mg ONCE ONE Administration Ondansetron HCl 4 mg 01/03/25 23:23 Ondansetron 4mg/2ml Vial IV 02/02/25 23:22 Q8HP PRN Nausea Tamsulosin HCl 0.4 mg 01/04/25 21:00 Tamsulosin 0.4mg Capsule PO 02/03/25 20:59 HS PADMINI Discontinued Medications Generic Name Dose Route Start Last Admin Trade Name Imelda PRN Reason Stop Dose Admin Lactated Ringer's 500 mls @ 999 mls/hr 01/03/25 21:29 01/03/25 23:34 Lactated Ringer's 1000 Ml Bag IV 01/03/25 21:59 Infused .Q31M ONE Infusion Iopamidol 75 ml 01/03/25 22:08 01/03/25 22:09 Iopamidol-370 (76%);100ml Bottle IV 01/03/25 22:09 75 ml ONCE ONE Administration Morphine Sulfate 4 mg 01/03/25 21:29 01/03/25 21:35 Morphine 4mg/Ml Syringe IV 01/03/25 21:30 4 mg ONCE ONE Administration Ondansetron HCl 4 mg 01/03/25 21:29 01/03/25 21:35 Ondansetron 4mg/2ml Vial IV 01/03/25 21:30 4 mg ONCE ONE Administration Sodium Chloride 10 ml 01/03/25 22:08 01/03/25 22:09 Sodium Chloride 0.9% 10ml Syr (Rad Only) IV 01/03/25 22:09 10 ml ONCE ONE Administration ORDERS Category Date Time Status CT abdomen pelvis w con Stat Cat Scan 01/03/25 21:28 Completed POCUS Point of Care (ER Only) Stat Exams 01/03/25 21:29 Completed Basic Metabolic Panel AMLAB Lab 01/04/25 06:00 Ordered CBC w/Auto Diff [Complete Blood Count Auto Diff] Stat Lab 01/03/25 21:17 Completed CMP [Comprehensive Metabolic Panel] Stat Lab 01/03/25 21:17 Completed Complete Blood Count Auto Diff AMLAB Lab 01/04/25 06:00 Ordered HCG Qualitative, Serum Stat Lab 01/03/25 21:17 Completed Lipase Stat Lab 01/03/25 21:17 Completed Magnesium Stat Lab 01/03/25 21:17 Completed UA [Urinalysis and Microscopic] Stat Lab 01/03/25 21:06 Completed Blood Culture Stat Micro 01/03/25 21:51 Received Urine Culture Stat Micro 01/03/25 21:30 Received VBG [Venous Blood Gas] Stat RT 01/04/25 01:21 Ordered Tissue Perfus/Sepsis Re-Eval Sepsis Re-Evaluation Performed: Yes Date Performed: 01/04/25 Time Performed: 00:01 Medical Decision Narrative: Patient is an otherwise 39-year-old female with a past medical history of kidney stones, 11 pregnancies 1 section who presented to the emergency department with right upper quadrant right flank pain. On arrival, patient was tachycardic but hemodynamically stable afebrile. Vital signs were otherwise unremarkable. Differential includes but not limited to: Dehydration, SAM, electrolyte abnormalities, UTI, pyelonephritis, obstructed stone, cholelithiasis, cholecystitis, amongst others. Patient's labs were reviewed and interpreted by myself: CBC showed a leukocytosis of 14, hemoglobin was stable. CMP showed mildly elevated anion gap at 18 mildly hyponatremic at 133. Lipase normal. UA had 3+ blood, positive nitrates, positive leuk esterase, 20-50 red blood cells, 5-10 white blood cells and bacteria. test negative. Patient CT scan was reviewed and interpreted by myself. Did show some right sided hydro with some associated stranding around the kidney. Gallbladder had significant gallstones. On initial read by radiology, they mention right-sided pyelonephritis, some nonobstructing left-sided nephrolithiasis but on initial read did not mention a kidney stone on the right. After further discussion with radiology, it was a missed read and addendum was added and patient has a 6 x 6 x 4 mm right sided kidney stone. Patient was given a dose of Rocephin in the emergency department, patient was given IV fluids. Patient was given a dose of morphine. Patient's pain was significantly improved. Will be ordered Toradol and Flomax for further management. Bedside ultrasound was performed and gallbladder showed significant gallstones but no evidence of cholecystitis. Gallbladder wall was not thickened and there was no evidence of pericholecystic fluid. At this time, patient was signed out to the oncoming provider pending transfer for septic stone and finding accepting facility. Blaine BROWN: I assumed care of the patient at the time of handoff from the prior provider. Patient remains hemodynamically stable in the ER. She is getting her second liter of fluids. Will replace her magnesium. Lactate ordered. Interactive discussion was had with Dr. Covarrubias at [facility] [place] who graciously accepted the patient for admission for further evaluation. Critical Care <Nara MccloudDO - Last Filed: 01/04/25 00:00> Critical Care Time Critical Care Time: No
--- NOTE | 2025-01-03 21:28 | CT_ITS ---
PROCEDURE INFORMATION: Exam: CT Abdomen And Pelvis With Contrast Exam date and time: 01/03/2025 10:10 PM Age: 39 years old Clinical indication: Abdominal pain; Additional info: Ruq/right flank pain TECHNIQUE: Imaging protocol: Computed tomography of the abdomen and pelvis with contrast. Radiation optimization: All CT scans at this facility use at least one of these dose optimization techniques: automated exposure control; mA and/or kV adjustment per patient size (includes targeted exams where dose is matched to clinical indication); or iterative reconstruction. Contrast material: ISOVUE; Contrast volume: 75 ml; Contrast route: IV; COMPARISON: CT ABDOMEN PELVIS W CON 02/03/2023 6:53 PM FINDINGS: Liver: Multiple liver hemangiomas are again visualized. The largest of these is located in the left hepatic lobe measuring 5.5 cm. Hepatomegaly. Gallbladder and biliary ducts: Cholelithiasis. No bile duct dilatation. Pancreas: Normal. No ductal dilation. Spleen: Small splenic cyst. Adrenal glands: Normal. No mass. Kidneys and ureters: Heterogeneous enhancement of the right kidney especially in the upper pole with right-sided perinephric fat stranding. Multiple nonobstructing left renal stones measuring up to 7 mm. Stomach and bowel: Unremarkable. No obstruction. No mucosal thickening. Appendix: No evidence of appendicitis. Intraperitoneal space: Unremarkable. No free air. No significant fluid collection. Vasculature: Unremarkable. No abdominal aortic aneurysm. Lymph nodes: Unremarkable. No enlarged lymph nodes. Urinary bladder: Unremarkable as visualized. Reproductive: Unremarkable as visualized. Bones/joints: Unremarkable. No acute fracture. Soft tissues: Unremarkable. IMPRESSION: 1. Findings consistent with right-sided pyelonephritis. 2. Left-sided nephrolithiasis. 3. Cholelithiasis. 4. Liver hemangiomas.
[2025-01-03] MEDS: LACTATED RINGERS 1000ML 500 ML 999 ML IV (21:34)
[2025-01-03] MEDS: ONDANSETRON 4MG/2ML VIAL 4 MG IV (21:35)
[2025-01-03] MEDS: MORPHINE 4MG/ML SYRINGE 4 MG IV (21:35)
[2025-01-03 21:38] LABS: Hematocrit 36.9 % (37.0-47.0); Hemoglobin 12.1 g/dL (12.2-16.2); Immature Granulocytes % 1.2 %; Mean Corpuscular HGB Conc 32.8 g/dL (31.8-35.4); Mean Corpuscular Hemoglobin 26.6 pg (27.0-31.2); Mean Corpuscular Volume 81.1 fl (81-99); Nucleated Red Blood Cells % 0 %; Platelet Count 210 K/mm3 (142-424); Red Blood Count 4.55 M/mm3 (4.20-5.40); Red Cell Distribution Width-SD 42.9 fL; White Blood Count 14.1 K/mm3 (4.8-10.8)
--- NOTE | 2025-01-03 21:51 | PC.NURSE ---
patient asked to change into gown. patient disconnected from her IV fluids. call light in reach and patient instructed o ring call light if she needed assistance.
[2025-01-03 21:52] LABS: HCG Qualitative, Serum Negative (Negative)
[2025-01-03 21:54] LABS: Microscopic, Urine URINE MICROSCOPIC (MICROSCOPIC)
[2025-01-03 21:55] LABS: Bilirubin,Urine Negative (Negative); Color,Urine YELLOW (Yellow); Glucose,Urine (UA) Negative (Negative); Ketones,Urine 2+ (Negative); Leukocyte Esterase,Urine 1+ (Negative); PH,Urine 6.0 (5.0-8.5); Protein,Urine 2+ (Negative); Specific Gravity, Urine 1.025 (1.005-1.030); Urobilinogen,Urine 0.2 EU/dl (0.2)
[2025-01-03 21:55] LABS: Alanine Aminotransferase 18 U/L (12-78); Albumin Level 4.1 g/dl (3.5-5.0); Albumin/Globulin Ratio 1.4 (1.1-1.8); Alkaline Phosphatase 97 U/L (38-126); Anion Gap 18.4 mEq/L (5-15); Aspartate Amino Transferase 33 U/L (14-36); Bilirubin,Total 1.0 mg/dl (0.2-1.3); Blood Urea Nitrogen 13 mg/dl (7-17); Calcium 9.9 mg/dl (8.4-10.2); Carbon Dioxide 21 mmol/L (22.0-30.0); Chloride 98 mmol/L (98-107); Creatinine Clearance Estimated 99 mL/min (50-200); Creatinine,Serum 0.90 mg/dl (0.52-1.04); Estimated Glomerular Filt Rate 70 ml/min (>60); GFR (African American) 84 ML/MIN (>60); Globulin 2.9 g/dL (1.3-3.2); Glucose 130 mg/dl (74-100); Lipase 13 U/L (23-300); Magnesium 1.5 mg/dl (1.6-2.3); Potassium 4.4 mmoL/L (3.5-5.1); Sodium 133 mmol/L (136-145); Total Protein,Serum 7.0 g/dl (6.3-8.2)
[2025-01-03 22:06] LABS: RBC,Urine 20-50 #/hpf (0-3)
[2025-01-03 22:07] LABS: Bacteria,Urine 1+ /lpf
[2025-01-03] MEDS: SODIUM CHLORIDE 0.9% 10ML SYR (RAD ONLY) 10 ML IV (22:09)
[2025-01-03] MEDS: IOPAMIDOL-370 (76%);100ML BOTTLE 75 ML IV (22:09)
--- NOTE | 2025-01-03 23:30 | PC.NURSE ---
Report called to [facility]
--- NOTE | 2025-01-03 23:52 | PC.NURSE ---
Called [facility] for possible transfer
[2025-01-04 00:01] VITALS: BP 109/63; PULSE 105; O2SAT 97
[2025-01-04] MEDS: KETOROLAC 30MG/ML VIAL 30 MG IV (00:06)
[2025-01-04] MEDS: 0.9 % SODIUM CHLORIDE 1000ML 1,000 ML 50 ML IV (00:06)
[2025-01-04 00:30] VITALS: BP 102/61; PULSE 99; O2SAT 97
--- NOTE | 2025-01-04 01:18 | PC.NURSE ---
called [facility] per Dr. Valladares for transfer.
[2025-01-04] MEDS: MAGNESIUM SULFATE IN WATER 2 GM/50 ML PIGGYBACK IV (01:25)
[2025-01-04 01:33] LABS: Lactate Venous 1.2 mmol/L (0.4-2.0); VBG HCO3 22.3 mmol/L (23-30); VBG PCO2 41.9 mmol/L (35-51); VBG PH 7.34 mmol/L (7.31-7.41); VBG PO2 43.3 mmol/L (28-40)
[2025-01-04 01:44] VITALS: BP 145/78; PULSE 98; RESP 17; TEMP 37.1
[2025-01-04 11:09] LABS: Acinetobacter calcoaceticus-ba Not Detected; Bacteroides fragilis Not Detected; CTX-M Not Detected; Candida auris Not Detected; Candida glabrata Not Detected; Enterobacterales Detected; Enterococcus faecalis Not Detected; Enterococcus faecium Not Detected; IMP Not Detected; KPC Not Detected; Klebsiella aerogenes Not Detected; Klebsiella pneumoniae grp Detected; NDM Not Detected; OXA-48-like Not Detected; Proteus spp. Not Detected; Salmonella spp. Not Detected; Serratia marcescens Not Detected; Staphylococcus epidermidis Not Detected; Staphylococcus lugdunensis Not Detected; Staphylococcus spp. Not Detected; Stenotrophomonas maltophilia Not Detected; Streptococcus agalactiae(GrpB) Not Detected; Streptococcus pyogenes Group A Not Detected; Streptococcus spp. Not Detected; VIM Not Detected; mcr-1 Not Detected
--- NOTE | 2025-01-04 11:17 | PC.NURSE ---
Blood culture results faxed to [facility] at [phone]
--- NOTE | 2025-01-05 09:36 | PC.NURSE ---
Urine culture results faxed to [facility]
== END 2025-01-04 02:24 | disposition admitted as inpatient to this hospital (09) ==
PROVIDERS: Emergency Medicine; Emergency Provider Student in an Organized Health Care Education/Training Program; PCP Nurse Practitioner Family
DX: A41.81 Sepsis due to Enterococcus (principal); N13.0 Hydronephrosis with ureteropelvic junction obstruction; N13.4 Hydroureter; N10 Acute pyelonephritis; B96.1 Klebsiella pneumoniae [K. pneumoniae] as the cause of diseases classified elsewhere; K80.20 Calculus of gallbladder without cholecystitis without obstruction
CPT/HCPCS: 74177; 80053; 81001; 82803; 83690; 83735; 84703; 85025; 87040; 87077; 87086; 87088; 87154; 87186; 96365; 96366; 96375; 99285; J0696; J1885; J2270; J2405; J3475; J7030; J7120; Q9967